=== PATIENT | male | born 1955 | race Caucasian/White ===

== ENCOUNTER 2021-09-05 12:02 | Inpatient (IN) ==
--- NOTE | 2021-09-05 12:14 | Emergency Department Note ---
Lower Extremity Injury HPI General Chief Complaint: Extremity Injury, Lower Stated Complaint: Fall, Rt hip fx Source: EMS Mode of arrival: EMS Limitations: no limitations History of Present Illness HPI Narrative: Narrative: Patient is a 66-year-old male with a right hip fracture that was diagnosed at the [facility] in [place]. Patient was initially seen at the hospital and transferred to [facility] emergency department to able to have surgery to the right hip. Patient indicates he has a history of Parkinson's and stood up from his toilet last night and fell. He indicates that around 3 AM in the living room he had a mechanical fall where he tripped and fell in his living room which caused the hip fracture. Patient reports over the last 6 to 9 months he has been unsteady due to his Parkinson's and falling more. Patient denies hitting his head or losing consciousness. He denies any other pain besides his right hip. Currently describes sharp and throbbing pain on the lateral side of his right hip and rates his pain 9 out of 10 on the 0-10 numerical pain scale. He did receive Dilaudid pain medication before transfer to [facility] emergency department. He indicates that the Dilaudid has been helpful with controlling his pain. Patient denies any numbness or tingling. Pain is aggravated with moving his right leg. Patient was initially seen at the [facility] in [facility] and transferred to [facility] where Dr. Curiel is on-call. Dr. Curiel has already been contacted by the [facility] earlier today. Related Data Home Medications Medication Instructions Recorded Confirmed amiodarone 200 mg tablet 200 mg PO QDAY 09/05/21 09/05/21 aspirin 81 mg capsule 81 mg PO QDAY 09/05/21 09/05/21 carbidopa 25 mg-levodopa 100 mg 1 tab PO BID 09/05/21 09/05/21 tablet citalopram 20 mg tablet 20 mg PO QDAY 09/05/21 09/05/21 cyanocobalamin (vitamin B-12) 1,000 mcg DAILY 09/05/21 09/05/21 1,000 mcg/mL injection syringe diazepam 10 mg tablet 10 mg PO DAILY PRN 09/05/21 09/05/21 digoxin 125 mcg (0.125 mg) tablet 125 mcg PO DAILY 09/05/21 09/05/21 divalproex 500 mg tablet,delayed 500 mg PO BID 09/05/21 09/05/21 release (Depakote) fluconazole 150 mg tablet 150 mg PO ONCE 09/05/21 09/05/21 fluticasone 250 mcg-salmeterol 50 1 inh INHALATION BID 09/05/21 09/05/21 mcg/dose blistr powdr for inhalation (Advair Diskus) furosemide 40 mg tablet 40 mg PO QDAY 09/05/21 09/05/21 gabapentin 300 mg capsule 300 mg PO QHS 09/05/21 09/05/21 levothyroxine 150 mcg capsule 150 mcg PO QDAY 09/05/21 09/05/21 midodrine 5 mg tablet 10 mg PO TID 09/05/21 09/05/21 morphine 60 mg tablet,extended 60 mg PO Q12H 09/05/21 09/05/21 release nitroglycerin 0.4 mg sublingual 0.4 mg SUBLINGUAL Q5M PRN 09/05/21 09/05/21 tablet olanzapine 10 mg tablet (Zyprexa) 10 mg PO QDAY 09/05/21 09/05/21 potassium chloride 10 mEq 10 meq PO BID 09/05/21 09/05/21 capsule,extended release pravastatin 40 mg tablet 40 mg PO QDAY 09/05/21 09/05/21 quetiapine 50 mg tablet 50 mg PO BID 09/05/21 09/05/21 tizanidine 4 mg capsule 4 mg PO TID 09/05/21 09/05/21 warfarin 5 mg tablet See Rx Instructions .ROUTE .COMPLEX 09/05/21 09/05/21 zolpidem 10 mg tablet (Ambien) 10 mg PO PRN PRN 09/05/21 09/05/21 Allergies Allergy/AdvReac Type Severity Reaction Status Date / Time aspirin Allergy Mild Abdominal Verified 09/05/21 16:54 Pain hydrocodone Allergy Mild Hives Verified 09/05/21 16:54 ibuprofen Allergy Mild Abdominal Verified 09/05/21 16:54 Pain NSAIDS (Non-Steroidal Allergy Mild Abdominal Verified 09/05/21 16:54 Anti-Inflamma Pain pentazocine Allergy Unknown Verified 09/05/21 12:09 Pyrazolones Allergy Unknown Verified 09/05/21 12:09 Salicylates Allergy Unknown Verified 09/05/21 12:09 Review of Systems ROS ROS Narrative: Narrative: All systems ED: reviewed and negative except as stated. PFSH Narrative Patient History Narrative: Narrative: Medical/Surgical/Family History All Active Problems (Updated 09/05/21 @ 13:40 by DONNA Lee) Fracture of hip (Acute) COPD (chronic obstructive pulmonary disease) (Acute) Medical History (Updated 09/05/21 @ 13:40 by DONNA Lee) COPD (chronic obstructive pulmonary disease) Parkinson's disease Social History Smoking Status: Current every day smoker Exam Narrative Narrative: Narrative: General Limitations: no limitations General appearance: Present alert and in no apparent distress Head Head: Present atraumatic, normocephalic and normal inspection Eye Eye: Present normal appearance, PERRL and EOMI; Absent scleral icterus, conjunctival injection or nystagmus ENT ENT: Present normal exam and normal oropharynx Neck Neck: Present normal inspection and full ROM; Absent tenderness or lymphadenopathy Chest Chest: Present symmetric chest wall rise Respiratory Respiratory: Present normal lung sounds bilaterally; Absent respiratory distress, rales/crackles, wheezes or accessory muscle use Cardiovascular Cardiovascular: Present regular rate and normal rhythm; Absent systolic murmur or diastolic murmur Adbominal Abdominal: Present soft; Absent distention or tenderness : Present other (Gordillo catheter is already in place upon arrival to the emergency department.) Extremities Extremities: Present normal inspection, normal capillary refill and other (There is tenderness with palpation on the lateral side of right hip. No internal or external rotation of the right leg. No shortening. No swelling, ecchymosis, or erythema.); Absent pedal edema, calf tenderness or cyanosis Back Back: Present normal inspection; Absent spinous process tenderness Neurological Neurological: Present alert and oriented X3 Psychiatric Psychiatric: Present normal affect and normal mood Skin Skin: Present warm (WNL), dry and normal color Course Vital Signs Vital signs: Vital Signs Temperature 98.3 F 09/05/21 12:03 Pulse Rate 79 09/05/21 12:03 Respiratory Rate 18 09/05/21 12:03 Blood Pressure 122/73 09/05/21 12:03 Pulse Oximetry (%) 99 09/05/21 12:03 Temperature 98.4 F 09/05/21 16:00 Pulse Rate 79 09/05/21 16:00 Respiratory Rate 18 09/05/21 16:00 Blood Pressure 135/79 09/05/21 16:00 Pulse Oximetry (%) 98 09/05/21 16:00 MDM MDM Narrative Medical decision making narrative: Narrative: 66-year-old male who had a mechanical ground-level fall today when he was at home that resulted in a right hip fracture. He was initially seen in [place] at the and then transferred to [facility] emergency department where Dr. Curiel had already been contacted. Dr. Curiel is on-call for orthopedics and I had consulted with him about this patient. He has agreed to see the patient and patient's [facility] Curiel to complete ORIF of right hip. I was able to talk with Dr. Atkins who is the hospitalist on at [facility] today. Dr. Atkins agrees to accept the patient for hospital admission to [facility]. Plan will be for Dr. Curiel to take patient to surgery tomorrow. Patient's EKG today shows atrial fibrillation with a rate of 61. No acute coronary syndrome findings on the EKG today. Patient's home medications do include warfarin. INR is currently pending at this time. 1 view chest x-ray does not show any definite infiltrates. Findings consistent with COPD. Patient received Dilaudid for pain management here in the emergency department and 4 mg of ondansetron. Patient currently resting comfortably and pain is controlled in room T5. Lab Data Lab results reviewed: Yes I reviewed the patient's lab results. Labs: Lab Results 09/05/21 Range/Units 12:43 PT 14.6 H (11.9-14.5) sec INR 1.1 (0.9-1.1) ED POC Tests ED POC Tests: KERRI - SARS Antigen Negative EKG Data EKG #1: EKG results narrative: NSR EKG shows normal: sinus rhythm Discharge Plan Patient/Caregiver Discharge Instructions Pt seen by 911 OPERATOR/PA only: No Clinical Impression: Fracture of hip Qualifiers: Encounter type: initial encounter Fracture type: closed Laterality: right Qualified Code(s): S72.001A - Fracture of unspecified part of neck of right femur, initial encounter for closed fracture Patient Disposition: Xfer As Inpt ([facility]) Discharge Date/Time: 09/05/21 15:59
[2021-09-05] MEDS ORDERED: ONDANSETRON 4 MG/2 ML VIAL IV ONE (12:34)
[2021-09-05] MEDS: HYDROmorphone 0.5 MG/0.5 ML SYRINGE IV PRN ×3 (12:42→18:59)
[2021-09-05 13:19] LABS: INR 1.1 (0.9-1.1); Prothrombin Time 14.6 sec (11.9-14.5)
[2021-09-05] MEDS ORDERED: ONDANSETRON 4 MG ODT TABLET SL PRN (13:52)
[2021-09-05] MEDS ORDERED: ONDANSETRON 4 MG/2 ML VIAL IV PRN (13:52)
[2021-09-05] MEDS ORDERED: hydrALAZINE 20 MG/ML VIAL IV PRN (13:52)
[2021-09-05] MEDS ORDERED: POTASSIUM CHLORIDE 40 MEQ in DEXTROSE 5% IN WATER 500 ML IV PRN (13:52)
[2021-09-05] MEDS ORDERED: POLYETHYLENE GLYCOL 3350 17 GM PACKET PO PRN (13:52)
[2021-09-05] MEDS ORDERED: ACETAMINOPHEN 325 MG TABLET PO PRN (13:52)
[2021-09-05] MEDS ORDERED: MAGNESIUM SULFATE 2 GM/50 ML BAG IV PRN (13:52)
[2021-09-05] MEDS ORDERED: BISACODYL 10 MG SUPP.RECT PR PRN (13:52)
[2021-09-05] MEDS ORDERED: METOPROLOL TARTRATE 5 MG/5 ML VIAL IV PRN (13:52)
--- NOTE | 2021-09-05 14:01 | Internal Med History&Physical ---
HPI History of Present Illness Patient information: Note initiated : 09/05/21 at 1:56 pm Service Date, if different from initiated Date: [] Patient: Oh Garcia 66 y/o M admitted on for Fall, Rt hip fx. Chief Complaint: [] History of present illness: Mr. Garcia is a 66 year old M with a complex past medical history of Parkinson's disease with ataxia, autonomic dysfunction, chronic pain, hypothyroidism, neuropathy, atrial fibrillation on anticoagulation, anxiety disorder who presents to the ER after he fell due to Parkinson related ataxia. Patient denies losing consciousness or seizure episode or thunderclap headache. He further denies chest pain, palpitation but started experiencing right-sided hip and back pain. He was evaluated at [facility]. Imaging consistent with right hip fracture. Dr. Butler admitting orthopedic was consulted and requested transfer to [facility] for operative intervention. Patient was brought in to [facility] ER by ambulance. On arrival stable hemodynamics. Creatinine 1.48, bicarb 31, sodium 134, potassium 3.6, white count 9.7, hemoglobin 14.9 Subsequently hospital service was consulted for admission. At the time of my evaluation patient is alert and oriented. He denies active distress but endorses to right-sided hip pain. He endorses to history as above. Lives with his son who was out working at the time of fall Other than that patient denies sick contacts, fever, chills, diarrhea, dysuria, productive sputum, cough. Review of systems 10 point review system was performed and is negative except for ones discussed above PFSH PFSH All Active Problems (Updated 09/05/21 @ 13:40 by DONNA Lee) Fracture of hip (Acute) COPD (chronic obstructive pulmonary disease) (Acute) Medical History (Updated 09/05/21 @ 13:40 by DONNA Lee) COPD (chronic obstructive pulmonary disease) Parkinson's disease MEDS/ALLERGIES Home Medications and Allergies Home Medications Medication Instructions Recorded Confirmed Type amiodarone 200 mg tablet 200 mg PO QDAY 09/05/21 09/05/21 History aspirin 81 mg capsule 81 mg PO QDAY 09/05/21 09/05/21 History carbidopa 25 mg-levodopa 100 mg 1 tab PO BID 09/05/21 09/05/21 History tablet citalopram 20 mg tablet 20 mg PO QDAY 09/05/21 09/05/21 History cyanocobalamin (vitamin B-12) See Rx Instructions .ROUTE .COMPLEX 09/05/21 09/05/21 History 1,000 mcg/mL injection syringe diazepam 10 mg tablet 10 mg PO DAILY PRN 09/05/21 09/05/21 History digoxin 125 mcg (0.125 mg) tablet 125 mcg PO DAILY 09/05/21 09/05/21 History divalproex 500 mg tablet,delayed 500 mg PO BID 09/05/21 09/05/21 History release (Depakote) fluconazole 150 mg tablet 150 mg PO ONCE 09/05/21 09/05/21 History fluticasone 250 mcg-salmeterol 50 1 inh INHALATION BID 09/05/21 09/05/21 History mcg/dose blistr powdr for inhalation (Advair Diskus) furosemide 40 mg tablet 40 mg PO QDAY 09/05/21 09/05/21 History gabapentin 300 mg capsule 300 mg PO QHS 09/05/21 09/05/21 History levothyroxine 150 mcg capsule 150 mcg PO QDAY 09/05/21 09/05/21 History midodrine 5 mg tablet 10 mg PO TID 09/05/21 09/05/21 History morphine 60 mg tablet,extended 60 mg PO Q12H 09/05/21 09/05/21 History release nitroglycerin 0.4 mg sublingual 0.4 mg SUBLINGUAL Q5M PRN 09/05/21 09/05/21 History tablet olanzapine 10 mg tablet (Zyprexa) 10 mg PO QDAY 09/05/21 09/05/21 History potassium chloride 10 mEq 10 meq PO BID 09/05/21 09/05/21 History capsule,extended release pravastatin 40 mg tablet 40 mg PO QDAY 09/05/21 09/05/21 History quetiapine 50 mg tablet 50 mg PO BID 09/05/21 09/05/21 History tizanidine 4 mg capsule 4 mg PO TID 09/05/21 09/05/21 History warfarin 5 mg tablet See Rx Instructions .ROUTE .COMPLEX 09/05/21 09/05/21 History zolpidem 10 mg tablet (Ambien) 10 mg PO PRN PRN 09/05/21 09/05/21 History Allergies Allergy/AdvReac Type Severity Reaction Status Date / Time aspirin Allergy Unknown Verified 09/05/21 12:09 hydrocodone Allergy Unknown Verified 09/05/21 12:09 ibuprofen Allergy Unknown Verified 09/05/21 12:09 NSAIDS (Non-Steroidal Allergy Unknown Verified 09/05/21 12:09 Anti-Inflamma pentazocine Allergy Unknown Verified 09/05/21 12:09 Pyrazolones Allergy Unknown Verified 09/05/21 12:09 Salicylates Allergy Unknown Verified 09/05/21 12:09 EXAM Constitutional Vitals: Temp Pulse Resp BP Pulse Ox 98.3 F 61 18 116/68 88 L 09/05/21 12:03 09/05/21 13:32 09/05/21 12:03 09/05/21 13:01 09/05/21 13:32 Head normocephalic, temporal wasting, cachectic with a BMI of 19 Oral cavity dry No ear or nose discharge Eye no subconjunctival pallor, movement symmetrical S1-S2 irregular, ESM grade 1 Nonlabored breathing Nondistended nontender abdomen Lower extremity , wasting noted, no cyanosis clubbing or joint swelling, left hip pain on passive movement Skin no suspicious lesion Psych anxious but no hallucination Neuro normal higher function, resting tremor DATA Data Completed and Pending Labs: Labs from last 24 hours 09/05/21 12:43 PT 14.6 H INR 1.1 A/P Assessment and plan (1) Fracture of hip: Assessment and plan: * Right hip fracture orthopedic consult, pain management, keep n.p.o. after midnight. * Preop risk evaluation-based on [employer] [place] Heart Association stratification patient would be high risk category in the setting of poor baseline functional status with underlying Parkinson's disease however there are no modifiable risk factors at this time. Patient can be kept n.p.o. after midnight and will recommend maintaining Intra-Op map around 60 to minimize chance of coronary and cerebral hypoperfusion * History of atrial fibrillation currently rate controlled. On amiodarone/digoxin. Anticoagulation Coumadin. Reverse Coumadin if indicated in preparation for surgery * History of ataxia/Parkinson's and recurrent fall. Physical therapy/gait and safety eval, maintain fall risk * Anxiety disorder continue citalopram * Anticoagulation on Coumadin-INR subtherapeutic. No indication for Coumadin reversal. Hold Coumadin until surgery. Restart post surgery once approved by orthopedics * Hypothyroidism continue thyroxine * History of Parkinson's disease continue levodopa carbidopa * Neuropathy continue gabapentin * Orthostatic hypotension secondary to autonomic dysfunction continue midodrine * Hyperlipidemia continue statin PLAN * Inpatient admission * N.p.o. after midnight * Pain management * Orthopedic consult * Pre-existing medical condition management Home medications * Maintain fall risk * PT OT nutrition support * Discharge planning per case management Status: Acute Qualifiers: Encounter type: initial encounter Fracture type: closed Laterality: right Qualified Code(s): S72.001A - Fracture of unspecified part of neck of right femur, initial encounter for closed fracture Time Spent With Patient Time: Total time spent is greater than 50% in coordination of care (as documented) at patient's floor/unit and/or counseling patient: Total time spent with greater than 50% in coordination of care (as documented) at patient's floor/unit and/or counseling patient:: Greater than 35 minutes
[2021-09-05] MEDS ORDERED: MIDODRINE 5 MG TABLET PO SCH (15:59)
[2021-09-05] MEDS ORDERED: DIAZEPAM 10 MG TABLET PO PRN (15:59)
--- NOTE | 2021-09-05 16:32 | XRay Report ---
CLINICAL INFORMATION: COPD COMPARISON: 07/30/2021 TECHNIQUE: PA and Lateral views FINDINGS: The heart size, mediastinum and pulmonary vessels are unremarkable. COPD changes noted. No infiltrates.. There are no effusions. The bones and soft tissues are within normal limits. IMPRESSION: COPD. No acute disease.. Interpreted and Authenticated by: Robin Piper 09/05/21
[2021-09-05] MEDS: 0.9 % SODIUM CHLORIDE 10 ML SYRINGE IV SCH ×2 (17:31→20:43)
[2021-09-05] MEDS: 0.9 % SODIUM CHLORIDE 1,000 ML IV SCH (17:31)
[2021-09-05] MEDS ORDERED: ZOLPIDEM 5 MG TABLET PO PRN (18:25)
[2021-09-05] MEDS: MORPHINE 60 MG PO SCH (19:07)
[2021-09-05] MEDS: DIVALPROEX 125 MG CAP.SPRINK PO SCH (20:54)
[2021-09-05] MEDS: GABAPENTIN 300 MG CAPSULE PO SCH (20:55)
[2021-09-05] MEDS: tiZANidine 4 MG TABLET PO SCH (20:55)
[2021-09-05] MEDS: DOCUSATE SODIUM 100 MG CAPSULE PO SCH (20:55)
[2021-09-05] MEDS: CARBIDOPA/LEVODOPA 25/100 TABLET PO SCH (20:55)
[2021-09-05] MEDS: QUEtiapine 25 MG TABLET PO SCH (20:55)
[2021-09-05] MEDS: FLUTICASONE/SALMETEROL 250/50 INHALER #14 INH SCH (20:55)
[2021-09-05] MEDS: SENNOSIDES/DOCUSATE SODIUM 1 TAB TABLET PO SCH (20:55)
[2021-09-05] MEDS: POTASSIUM CHLORIDE 10 MEQ TABLET PO SCH (20:59)
[2021-09-06] MEDS: MORPHINE 60 MG PO SCH (02:55)
[2021-09-06] MEDS: HYDROmorphone 0.5 MG/0.5 ML SYRINGE IV PRN (03:28)
[2021-09-06] MEDS: ACETAMINOPHEN 650 MG/65 ML BAG IV PRN (03:33)
[2021-09-06] MEDS: 0.9 % SODIUM CHLORIDE 10 ML SYRINGE IV SCH ×3 (04:36→20:28)
[2021-09-06] MEDS ORDERED: IPRATROPIUM/ALBUTEROL 3 ML AMPUL.NEB NEB PRN ×2 (07:00→08:54)
[2021-09-06] MEDS ORDERED: SCOPOLAMINE 1 PATCH PATCH TOPICAL PRN (07:00)
[2021-09-06 07:12] LABS: Basophils # (Auto) 0.02 K/mcL (0.00-0.30); Basophils % (Auto) 0.3 % (0.0-2.0); Eosinophils # (Auto) 0.16 K/mcL (0.00-0.70); Eosinophils % (Auto) 2.6 % (0.0-7.0); Hematocrit 34.7 % (40.1-51.0); Hemoglobin 11.5 g/dL (13.7-17.5); Lymphocytes # (Auto) 1.81 K/mcL (1.50-4.80); Lymphocytes % (Auto) 29.5 % (15.5-49.0); Mean Cell Volume 89.7 fL (80.0-100.0); Mean Corpuscular HGB Conc 33.1 g/dL (31.0-36.0); Mean Platelet Volume 11.5 fL (7.4-10.4); Monocytes # (Auto) 0.69 K/mcL (0.10-0.90); Monocytes % (Auto) 11.3 % (1.0-12.0); Neutrophils % (Auto) 56.3 % (38.0-78.0); Platelet Count 150 K/mcL (140-440); RBC 3.87 M/mcL (4.63-6.08); Red Cell Distribution Width 14.5 % (11.5-14.5); WBC 6.1 K/mcL (4.5-11.0)
[2021-09-06 07:22] LABS: INR 1.1 (0.9-1.1); Prothrombin Time 14.7 sec (11.9-14.5)
[2021-09-06] MEDS: CITALOPRAM 20 MG TABLET PO SCH (07:31)
[2021-09-06] MEDS: MIDODRINE 5 MG TABLET PO SCH ×3 (07:32→16:51)
[2021-09-06] MEDS: QUEtiapine 25 MG TABLET PO SCH ×2 (07:32→20:23)
--- NOTE | 2021-09-06 07:43 | Orthopedic History & Physical ---
HPI History of Present Illness Patient information: Note initiated : 09/06/21 at 7:32 am Service Date, if different from initiated Date: [] Patient: Oh Garcia 66 y/o M admitted on 09/05/21 for Fall, Rt hip fx. Chief Complaint: [] Chief complaint: Right hip pain History of present illness: Mr. Garcia is a 66 year old M with a past medical history of Parkinson's disease with ataxia, autonomic dysfunction, chronic pain, hypothyroidism, neuropathy, atrial fibrillation on anticoagulation, anxiety disorder who pres ented to [facility] after a fall related to his Parkinsons. He was discovered to have a fracture of the right hip at [facility] and transferred to [facility] for definitive care. Orthopedics was consulted and surgery is planned. The hospitalist has seen the patient and the patient has a complex medical history but has been okayed for surgery. Patient denies losing consciousness or seizure episode or thunderclap headache. He further denies chest pain, palpitation but started experiencing right-sided hip and back pain. He was evaluated at [facility]. Imaging consistent with right hip fracture. Dr. Butler admitting orthopedic was consulted and requested transfer to [facility] for operative intervention. Other than that patient denies sick contacts, fever, chills, diarrhea, dysuria, productive sputum, cough. Review of Systems Review of systems: A 10 point system was reviewed and is negative except as documented in the HPI PFSH PFSH All Active Problems (Updated 09/06/21 @ 07:40 by Toby Giron PA-C) Subtrochanteric fracture of hip (Acute) Fracture of hip (Acute) COPD (chronic obstructive pulmonary disease) (Acute) Medical History (Updated 09/06/21 @ 07:40 by Toby Giron PA-C) COPD (chronic obstructive pulmonary disease) Parkinson's disease MEDS/ALLERGIES Home Medications and Allergies Home Medications Medication Instructions Recorded Confirmed Type amiodarone 200 mg tablet 200 mg PO QDAY 09/05/21 09/05/21 History aspirin 81 mg capsule 81 mg PO QDAY 09/05/21 09/05/21 History carbidopa 25 mg-levodopa 100 mg 1 tab PO BID 09/05/21 09/05/21 History tablet citalopram 20 mg tablet 20 mg PO QDAY 09/05/21 09/05/21 History cyanocobalamin (vitamin B-12) 1,000 mcg DAILY 09/05/21 09/05/21 History 1,000 mcg/mL injection syringe diazepam 10 mg tablet 10 mg PO DAILY PRN 09/05/21 09/05/21 History digoxin 125 mcg (0.125 mg) tablet 125 mcg PO DAILY 09/05/21 09/05/21 History divalproex 500 mg tablet,delayed 500 mg PO BID 09/05/21 09/05/21 History release (Depakote) fluconazole 150 mg tablet 150 mg PO ONCE 09/05/21 09/05/21 History fluticasone 250 mcg-salmeterol 50 1 inh INHALATION BID 09/05/21 09/05/21 History mcg/dose blistr powdr for inhalation (Advair Diskus) furosemide 40 mg tablet 40 mg PO QDAY 09/05/21 09/05/21 History gabapentin 300 mg capsule 300 mg PO QHS 09/05/21 09/05/21 History levothyroxine 150 mcg capsule 150 mcg PO QDAY 09/05/21 09/05/21 History midodrine 5 mg tablet 10 mg PO TID 09/05/21 09/05/21 History morphine 60 mg tablet,extended 60 mg PO Q12H 09/05/21 09/05/21 History release nitroglycerin 0.4 mg sublingual 0.4 mg SUBLINGUAL Q5M PRN 09/05/21 09/05/21 History tablet olanzapine 10 mg tablet (Zyprexa) 10 mg PO QDAY 09/05/21 09/05/21 History potassium chloride 10 mEq 10 meq PO BID 09/05/21 09/05/21 History capsule,extended release pravastatin 40 mg tablet 40 mg PO QDAY 09/05/21 09/05/21 History quetiapine 50 mg tablet 50 mg PO BID 09/05/21 09/05/21 History tizanidine 4 mg capsule 4 mg PO TID 09/05/21 09/05/21 History warfarin 5 mg tablet See Rx Instructions .ROUTE .COMPLEX 09/05/21 09/05/21 History zolpidem 10 mg tablet (Ambien) 10 mg PO PRN PRN 09/05/21 09/05/21 History Allergies Allergy/AdvReac Type Severity Reaction Status Date / Time aspirin Allergy Mild Abdominal Verified 09/05/21 16:54 Pain hydrocodone Allergy Mild Hives Verified 09/05/21 16:54 ibuprofen Allergy Mild Abdominal Verified 09/05/21 16:54 Pain NSAIDS (Non-Steroidal Allergy Mild Abdominal Verified 09/05/21 16:54 Anti-Inflamma Pain pentazocine Allergy Unknown Verified 09/05/21 12:09 Pyrazolones Allergy Unknown Verified 09/05/21 12:09 Salicylates Allergy Unknown Verified 09/05/21 12:09 Physical Examination Narrative Narrative: Narrative: General: No acute distress, resting comfortably in bed. Head: atraumatic, normocephalic, no lacerations Neck; supple, no tenderness or lymphadenopathy Chest: Clear to auscultation bilaterally, distant lung sounds, no rales or rhonchi Cardiovascular: Distant heart sounds, regular rate and rhythm, no murmurs Abdomen: Soft, nondistended, no tenderness, there is a J-tube for feeding in his abdomen without any issues or signs of infection Musculoskeletal: There is pain and swelling in the right hip and the right leg is shortened and externally rotated. He has reduced sensation in bilateral lower legs secondary to his neuropathy but he is able to dorsiflex and home the foot on both feet however it is weak Skin: intact, no rash or lacerations Neuro: Alert and oriented x3, Psych: normal mood and affect Results Labs Result Diagrams: 09/06/21 05:22 09/06/21 05:22 Labs: Abnormal lab results 09/05/21 09/06/21 09/06/21 Range/Units 12:43 05:22 05:22 RBC 3.87 L (4.63-6.08) M/mcL Hgb 11.5 L (13.7-17.5) g/dL Hct 34.7 L (40.1-51.0) % MPV 11.5 H (7.4-10.4) fL PT 14.6 H 14.7 H (11.9-14.5) sec H & H 09/06/21 Range/Units 05:22 Hgb 11.5 L (13.7-17.5) g/dL Hct 34.7 L (40.1-51.0) % Coagulation 09/05/21 09/06/21 Range/Units 12:43 05:22 INR 1.1 1.1 (0.9-1.1) All other labs normal. Diagnostic results Hip x-ray: image reviewed (Imaging of the right hip and pelvis at [facility] reveal evidence of a significantly displaced and shortened subtrochanteric fracture of the right hip. There appears to be no pathologic process and no other acute abnormality was appreciated throughout the hip or pelvis.) and other A/P Assessment and plan (1) Subtrochanteric fracture of hip: Assessment and plan: Assessment: Displaced, closed, subtrochanteric fracture of the right hip Plan: Patient was admitted last night by the hospitalist for surgery and has been cleared however he does have a history of heart attack and stent and he has a complex medical history. We discussed the risk and benefits of surgery in detail with the patient today and the alternatives of surgery and due to the nature of the fracture the patient has elected to proceed with surgery which is appropriate. We will plan on a right hip open reduction internal fixation with a cephalomedullary nailing. Risk of surgery include heart attacks, strokes, , pneumonia, infection, blood clots, damage to local arteries and nerves, etc. No guarantees were given. Status: Acute Time Spent With Patient Time: Total time spent is greater than 50% in coordination of care (as documented) at patient's floor/unit and/or counseling patient:
[2021-09-06 07:47] LABS: ALT/SGPT < 5 U/L (<40); AST/SGOT 16 U/L (<40); Albumin 2.9 gm/dL (3.2-5.2); Albumin/Globulin Ratio 1.1 (1.0-2.3); Alkaline Phosphatase 103 U/L (39-117); Bilirubin,Direct 0.4 mg/dL (<0.3); Blood Urea Nitrogen 10 mg/dL (8-23); Calcium 8.4 mg/dL (8.6-10.4); Carbon Dioxide 28 mmol/L (22-30); Chloride 96 mmol/L (96-108); Globulin 2.7 gm/dL (2.2-3.7); Glomerular Filtration Rate 78; Glucose 79 mg/dL (70-105); Lactate Dehydrogenase 148 U/L (135-225); Phosphorous 3.1 mg/dL (2.5-4.5); Triglycerides 99 mg/dL (<150)
[2021-09-06] MEDS ORDERED: ceFAZolin 2 GM in DEXTROSE 5% IN WATER 50 ML IV SCH ×2 (08:00→10:00)
[2021-09-06] MEDS ORDERED: MAGNESIUM HYDROXIDE 30 ML ORAL.SUSP PO PRN ×2 (08:07→09:56)
[2021-09-06] MEDS ORDERED: FLEETS ADULT ENEMA PR PRN ×2 (08:07→09:56)
[2021-09-06] MEDS ORDERED: BENZOCAINE/MENTHOL 1 LOZENGE PO PRN ×2 (08:07→09:56)
[2021-09-06] MEDS ORDERED: LIDOCAINE HCL/PF 100 MG/5 ML SYRINGE IV ONE (08:09)
[2021-09-06] MEDS ORDERED: ONDANSETRON 4 MG/2 ML VIAL ONE (08:09)
[2021-09-06] MEDS ORDERED: MAGNESIUM SULFATE 2 GM/50 ML BAG IV ONE (08:09)
[2021-09-06] MEDS ORDERED: KETAMINE 50 MG/ML Syringe (ANEST) IV ONE (08:09)
[2021-09-06] MEDS ORDERED: DEXAMETHASONE 10 MG/ML VIAL ONE (08:09)
[2021-09-06] MEDS ORDERED: PHENYLephrine 1 MG/10 ML SYRINGE (ANEST) ONE (08:09)
[2021-09-06] MEDS ORDERED: PROPOFOL 200 MG/20 ML VIAL IV ONE (08:09)
[2021-09-06] MEDS ORDERED: ePHEDrine 50 MG/5 ML SYRINGE (ANEST) IV ONE (08:09)
[2021-09-06] MEDS ORDERED: NALOXONE HCL 0.4 MG/ML VIAL IV PRN ×2 (08:12→08:54)
[2021-09-06] MEDS ORDERED: KETOROLAC 15 MG/ML VIAL IV PRN (08:12)
[2021-09-06] MEDS ORDERED: HYDROCODONE/APAP 7.5/325MG TABLET PO PRN (08:12)
[2021-09-06] MEDS ORDERED: ACETAMINOPHEN 325 MG TABLET PO PRN (08:12)
[2021-09-06] MEDS ORDERED: ONDANSETRON 4 MG/2 ML VIAL IV PRN ×3 (08:12→10:01)
[2021-09-06] MEDS: AMIODARONE HCL 200 MG TABLET PO SCH (08:25)
[2021-09-06] MEDS: POTASSIUM CHLORIDE 10 MEQ TABLET PO SCH ×2 (08:25→16:52)
[2021-09-06] MEDS: FLUTICASONE/SALMETEROL 250/50 INHALER #14 INH SCH ×2 (08:25→20:28)
[2021-09-06] MEDS: LEVOTHYROXINE 150 MCG TABLET PO SCH (08:25)
[2021-09-06] MEDS: ASPIRIN 81 MG TAB.CHEW PO SCH (08:26)
[2021-09-06] MEDS: DOCUSATE SODIUM 100 MG CAPSULE PO SCH ×2 (08:26→20:26)
[2021-09-06] MEDS: MULTIVIT,THER IRON,CA,FA & MIN 1 TABLET PO SCH (08:27)
[2021-09-06] MEDS: DIVALPROEX 125 MG CAP.SPRINK PO SCH ×2 (08:27→20:25)
[2021-09-06] MEDS: ATORVASTATIN 10 MG TABLET PO SCH (08:27)
[2021-09-06] MEDS: FUROSEMIDE 40 MG TABLET PO SCH (08:27)
[2021-09-06] MEDS: CARBIDOPA/LEVODOPA 25/100 TABLET PO SCH ×2 (08:28→20:26)
[2021-09-06] MEDS: tiZANidine 4 MG TABLET PO SCH ×3 (08:28→20:27)
[2021-09-06] MEDS ORDERED: METHOCARBAMOL 1,000 MG/10 ML VIAL IV PRN ×2 (08:54→10:01)
[2021-09-06] MEDS ORDERED: LACTATED RINGERS 250 ML IV PRN (08:54)
[2021-09-06] MEDS ORDERED: AMIODARONE HCL 200 MG TABLET PO SCH (09:00)
[2021-09-06] MEDS ORDERED: OLANZAPINE 10 MG PO SCH (09:00)
[2021-09-06] MEDS ORDERED: LACTATED RINGERS 1,000 ML IV SCH (09:00)
[2021-09-06] MEDS: ENOXAPARIN 30 MG/0.3 ML SYRINGE SQ SCH ×2 (09:03→20:23)
[2021-09-06] MEDS ORDERED: BUPIVACAINE PF 0.5% 30 ML VIAL IJ ONE (09:12)
--- NOTE | 2021-09-06 09:13 | Discharge Plan ---
Discharge Plan Patient/Caregiver Discharge Instructions Activity: increase activity as tolerated Diet: Regular Diet Activity Restrictions/Additional Instructions: Weight bearing as tolerated Prescriptions: New oxycodone-acetaminophen 5-325 mg tablet 1 tab PO Q4H PRN (Reason: pain) Qty: 60 0RF No Action gabapentin 300 mg Capsule 300 mg PO QHS 0RF warfarin 5 mg Tablet See Rx Instructions .ROUTE .COMPLEX 0RF Rx Instructions: 1.5 mg tabls M, W, F, and 5 mg AOD cyanocobalamin (vitamin B-12) 1,000 mcg/mL Syringe 1,000 mcg DAILY 0RF Rx Instructions: IM levothyroxine 150 mcg Capsule 150 mcg PO QDAY 0RF pravastatin 40 mg Tablet 40 mg PO QDAY 0RF amiodarone 200 mg Tablet 200 mg PO QDAY 0RF olanzapine [Zyprexa] 10 mg Tablet 10 mg PO QDAY 0RF morphine 60 mg Tablet Extended Release 60 mg PO Q12H 0RF furosemide 40 mg Tablet 40 mg PO QDAY 0RF fluticasone propion-salmeterol [Advair Diskus] 250-50 mcg/dose Blister With Device 1 inh INHALATION BID 0RF potassium chloride 10 mEq Capsule, Extended Release 10 meq PO BID 0RF fluconazole 150 mg Tablet 150 mg PO ONCE 0RF Rx Instructions: as a single dose midodrine 5 mg Tablet 10 mg PO TID 0RF Rx Instructions: do not give last dose of day after 6PM or within 4 hrs of bedtime divalproex [Depakote] 500 mg Tablet,Delayed Release (Dr/Ec) 500 mg PO BID 0RF Rx Instructions: one tablet in the morning and two tablets at bedtime citalopram 20 mg Tablet 20 mg PO QDAY 0RF nitroglycerin 0.4 mg Tablet, Sublingual 0.4 mg SUBLINGUAL Q5M PRN (Reason: Insomnia) 0RF Rx Instructions: do not exceed 3 doses per episode digoxin 125 mcg (0.125 mg) Tablet 125 mcg PO DAILY 0RF diazepam 10 mg Tablet 10 mg PO DAILY PRN (Reason: Anxiety) 0RF zolpidem [Ambien] 10 mg Tablet 10 mg PO PRN PRN (Reason: Insomnia) 0RF carbidopa-levodopa 25-100 mg Tablet 1 tab PO BID 0RF tizanidine 4 mg Capsule 4 mg PO TID 0RF quetiapine 50 mg Tablet 50 mg PO BID 0RF aspirin 81 mg Capsule 81 mg PO QDAY 0RF Follow Up Plan Follow up with: Yovani Curiel MD [Physician] - John Weathers MD [Referring] - Patient Disposition: Home, Self-Care Discharge Orders: Discharge Order (Routine); Ordered 09/09/21 Ordered By: Yovani Curiel
[2021-09-06] MEDS: MEPERIDINE 25 MG/ML VIAL IV PRN ×2 (09:34→09:50)
[2021-09-06] MEDS: LACTATED RINGERS 1,000 ML IV SCH ×2 (09:36→09:52)
--- NOTE | 2021-09-06 09:41 | Operative Note ---
Operative Note Operative Note: Pre-operative diagnosis: Right peritrochanteric fracture Postoperative diagnosis: Same Procedure: Right hip IM nail Implants: Synthes TFN, size 11 x 235 mm 95 mm cephalad screw, 40 mm distal locking screw Findings: As above, fracture with displacement of GT and LT Complications: None Estimated Blood loss: 50 cc Assist: Mele Johnston whose assistance was critical to safety and efficacy of the procedure DOS: September 06, 2021 Clinical note: The patient continues to suffer from the above mentioned diagnos is. She had a fall yesterday and was unable to weight-bear on the right hip. X-rays were taken which were concerning for right hip fracture, although minimally displaced. Radiology suggested a CT scan which was performed and did confirm a subcapital hip fracture. There was valgus impacted with minimal displacement and no interruption of the medial calcar. Surgery in the form of percutaneous pinning was advised to stabilize the fracture. Arthroplasty was considered however given the stable nature of this fracture and that pinning is the less invasive of the 2 procedures this was chosen. She is aware that occasionally the pinning does fail and sometimes need to be revised to an arthroplasty. H&P: The patient was met outside the operating room and symptoms were reviewed and a physical exam performed. The patient demonstrated ongoing symptoms and signs as previously discussed. Risk versus benefits of the procedure were again discussed. Patient wished to proceed with the surgery aware and understanding of these risks. The operative site was marked. The patient was brought into the operating room and prepped and draped in the usual fashion supine on traction table. Traction was applied and the hip was imaged with fluoroscopy. This confirmed good reduction of the fracture both in AP and lateral views. We began by making an incision directly superior to the GT. A starting wire was introduced with the help of a starting awl directly on the tip of the GT using fluoroscopy to confirm trajectory. The canal was then opened with an entry reamer. A IM nail of size scribed above was then introduced. This was advanced with a mallet until the trajectory of the cephalad screw is in line with the center of the femoral head. A guidewire was introduced to the center of the femoral head within 25 mm combined on both AP and lateral views of the apex. An incision was made on the lateral femur, and the lateral femoral cortex was opened through the trocar with a start drill, then the femoral neck was drilled in the usual fashion. A Cephalad screw was then inserted through the trocar into the center of the femoral head. Again using the guide a distal locking screw was inserted in the usual fashion securing the distal portion of the nail. Final fluoroscopy views were performed confirming the hip remained well reduced in the nail and locking screws were in good position. The wounds were then irrigated. They were closed with a heavy Vicryl suture for the deep layers followed by Monocryl and yasmine for the skin. A bulky dressing was applied. Patient was brought to PACU in good condition. They can be weightbearing as tolerated on that leg should follow-up with myself or the PA in 2 weeks time at [facility] for wound check and staple removal.
[2021-09-06] MEDS: morphine 2 MG/ML VIAL IV PRN ×2 (09:50→09:59)
[2021-09-06] MEDS ORDERED: ONDANSETRON 4 MG ODT TABLET SL PRN (10:01)
[2021-09-06] MEDS: 0.9 % SODIUM CHLORIDE 1,000 ML IV SCH (10:52)
--- NOTE | 2021-09-06 11:09 | Internal Med Progress Note ---
SUBJECTIVE Subjective Patient information: Note initiated : 09/06/21 at 11:07 am Service Date, if different from initiated Date: [] Patient: Oh Garcia 66 y/o M admitted on 09/05/21 for Fall, Rt hip fx. Chief Complaint: [] Interval history: Mr. Garcia is a 66 year old M with a complex past medical history of Parkinson's disease with ataxia, autonomic dysfunction, chronic pain, hypothyroidism, neuropathy, atrial fibrillation on anticoagulation, anxiety disorder who presents to the ER after he fell due to Parkinson related ataxia. Patient denies losing consciousness or seizure episode or thunderclap headache. He further denies chest pain, palpitation but started experiencing right-sided hip and back pain. He was evaluated at [facility]. Imaging consistent with right hip fracture. Dr. Butler admitting orthopedic was consulted and requested transfer to [facility] for operative intervention. Patient was brought in to [facility] ER by ambulance. On arrival stable hemodynamics. Creatinine 1.48, bicarb 31, sodium 134, potassium 3.6, white count 9.7, hemoglobin 14.9 Subsequently hospital service was consulted for admission. At the time of my evaluation patient is alert and oriented. He denies active distress but end orses to right-sided hip pain. He endorses to history as above. Lives with his son who was out working at the time of fall Other than that patient denies sick contacts, fever, chills, diarrhea, dysuria, productive sputum, cough. 09/06-patient seen in postoperative phase. Doing well. Pain good control. On Jevity per tube. Restart home medications. No anxiety/concerns expressed with nursing staff. Stable hemodynamics. Constitutional Vitals: Vital Signs Temp Pulse Resp BP Pulse Ox 98.3 F 69 16 122/74 99 09/06/21 10:05 09/06/21 10:05 09/06/21 10:05 09/06/21 10:05 09/06/21 10:05 Period Temp Pulse Resp BP Sys/Roland Pulse Ox Last 24 Hr 97 F-99 F 37-79 16-18 81-135/51-79 88-99 Intake and Output 09/05/21 09/06/21 09/06/21 21:59 05:59 13:59 Intake Total 0 65 3838 Output Total 200 150 200 Balance -200 -85 3638 Weight 72.212 kg 72.212 kg Patient Weight 09/07/21 05:59 Weight 72.212 kg alert oriented Nonlabored breathing PEG tube site no erythema, nontender abdomen No anxiety Intake & Output: Intake & Output 09/05/21 09/06/21 09/06/21 21:59 05:59 13:59 Intake Total 0 65 3838 Output Total 200 150 200 Balance -200 -85 3638 Weight 72.212 kg 72.212 kg Intake: IV 65 938 Sodium Chloride 0.9% 1,000 ml @ 868 50 mls/hr IV .Q20H [facility] Rx#: [id number] Lactated Ringers 1,000 ml @ 75 20 mls/hr IV .[id number] [facility] Rx#: [id number] Ancef 2 gm In Dextrose 5% in 50 Water 50 ml @ 100 mls/hr IV PREOP [facility] Rx#:[id number] Oral 0 0 0 IV - Manual Only 1000 Other 1900 Output: Urine Catheter Amount 200 150 200 Other: Urine Appearance Clear Urine Color Uretheral (Gordillo) Dark Azucena OBJ DATA Labs CBC & Chem 7: 09/06/21 05:22 09/06/21 05:22 Labs: Abnormal Lab Results 09/06/21 09/06/21 09/06/21 05:22 05:22 05:22 RBC 3.87 L Hgb 11.5 L Hct 34.7 L MPV 11.5 H PT 14.7 H Calcium 8.4 L Direct Bilirubin 0.4 H Total Protein 5.6 L Albumin 2.9 L 09/05/21 12:43 RBC Hgb Hct MPV PT 14.6 H Calcium Direct Bilirubin Total Protein Albumin Meds: Medications Acetaminophen (Acetaminophen 325 Mg Tablet) 650 mg PO Q6HP PRN; Protocol PRN Reason: Per Pain Protocol/Fever > 101 Hydrocodone Bitart/Acetaminophen (Hydrocodone/Apap 7.5/325mg Tablet) 0 tab PO Q4HP PRN; Protocol PRN Reason: Per Pain Protocol Amiodarone HCl (Amiodarone Hcl 200 Mg Tablet) 200 mg PO [facility] Last Admin: 09/06/21 08:25 Dose: Not Given Documented by: Aspirin (Aspirin 81 Mg Tab.Chew) 81 mg PO DAILY [facility] Last Admin: 09/06/21 08:26 Dose: Not Given Documented by: Atorvastatin Calcium (Atorvastatin 10 Mg Tablet) 10 mg PO QDAY [facility] Last Admin: 09/06/21 08:27 Dose: Not Given Documented by: Bisacodyl (Bisacodyl 10 Mg Supp.Rect) [address] Q2-3DAYS PRN PRN Reason: Constipation Carbidopa/Levodopa (Carbidopa/Levodopa 25/100 Tablet) 1 tab PO BID [facility] Last Admin: 09/06/21 08:28 Dose: Not Given Documented by: Cefazolin Sodium (Cefazolin 1 Gm Vial) 2 gm IV Q8H [facility] Stop: 09/07/21 00:01 Chlorhexidine Gluconate (Chlorhexidine Gluconate 1 Ml Oral.Margaret) 15 ml SWABMOUTH BID [facility] Citalopram Hydrobromide (Citalopram 20 Mg Tablet) 20 mg PO QDAY [facility] Last Admin: 09/06/21 07:31 Dose: 20 mg Documented by: Diazepam (Diazepam 10 Mg Tablet) 10 mg PO DAILY PRN PRN Reason: Anxiety Digoxin (Digoxin 125 Mcg Tablet) 125 mcg PO DAILY@1400 [facility] Divalproex Sodium (Divalproex 125 Mg Cap.Sprink) 1,000 mg PO [facility] Last Admin: 09/05/21 20:54 Dose: 1,000 mg Documented by: Divalproex Sodium (Divalproex 125 Mg Cap.Sprink) 500 mg PO DAILY [facility] Last Admin: 09/06/21 08:27 Dose: Not Given Documented by: Docusate Sodium (Docusate Sodium 100 Mg Capsule) 100 mg PO BID [facility] Last Admin: 09/06/21 08:26 Dose: Not Given Documented by: Enoxaparin Sodium (Enoxaparin 30 Mg/0.3 Ml Syringe) 30 mg SQ BID [facility] Last Admin: 09/06/21 09:03 Dose: Not Given Documented by: Furosemide (Furosemide 40 Mg Tablet) 40 mg PO QDAY [facility] Last Admin: 09/06/21 08:27 Dose: Not Given Documented by: Gabapentin (Gabapentin 300 Mg Capsule) 300 mg PO QHS [facility] Last Admin: 09/05/21 20:55 Dose: 300 mg Documented by: Hydralazine HCl (Hydralazine 20 Mg/Ml Vial) 10 mg IV Q4-6HP PRN PRN Reason: Hypertension Potassium Chloride 40 meq/ (Dextrose) 520 mls @ 130 mls/hr IV UD PRN PRN Reason: K+ = or < 3.5 Acetaminophen (Ofirmev) 650 mg in 65 mls @ 130 mls/hr IV Q6HP PRN; Protocol PRN Reason: Per Pain Protocol/Fever > 101 Last Infusion: 09/06/21 04:04 Dose: Infused Documented by: Magnesium Sulfate (Magnesium Sulfate) 2 gm in 50 mls @ 50 mls/hr IV UD PRN PRN Reason: MG = or < 1.7 Sodium Chloride (Sodium Chloride 0.9%) 1,000 mls @ 50 mls/hr IV .Q20H [facility] Stop: 09/08/21 01:59 Last Admin: 09/06/21 10:52 Dose: 50 mls/hr Documented by: Cefazolin Sodium 2 gm/ (Dextrose) 50 mls @ 100 mls/hr IV PREOP [facility]; Protocol Stop: 09/06/21 17:00 Last Infusion: 09/06/21 08:44 Dose: Infused Documented by: Lactated Ringer's (Lactated Ringers) 1,000 mls @ 75 mls/hr IV .[id number] [facility] Last Admin: 09/06/21 09:52 Dose: 75 mls/hr Documented by: Iron Carb/Multivit/Travel Consultant/Folic Acid (Multivit,Ther Iron,Ca,Fa & Min 1 Tablet) 1 tab PO DAILY [facility] Last Admin: 09/06/21 08:27 Dose: Not Given Documented by: Ketorolac Tromethamine (Ketorolac 15 Mg/Ml Vial) 15 mg IV Q6HP PRN; Protocol PRN Reason: Per Pain Protocol Stop: 09/08/21 08:14 Levothyroxine Sodium (Levothyroxine 150 Mcg Tablet) 150 mcg PO QAMAC [facility] Last Admin: 09/06/21 08:25 Dose: Not Given Documented by: Magnesium Hydroxide (Magnesium Hydroxide 30 Ml Oral.Susp) 30 ml PO BIDP PRN PRN Reason: Constipation Melatonin (Melatonin 3 Mg Tablet) 3 mg PO HSP PRN PRN Reason: Insomnia Methocarbamol (Methocarbamol 1,000 Mg/10 Ml Vial) 750 mg IV Q6HP PRN PRN Reason: Muscle Spasm Metoprolol Tartrate (Metoprolol Tartrate 5 Mg/5 Ml Vial) 5 mg IV Q5M PRN PRN Reason: Heart Rate > 140 bpm Midodrine (Midodrine 5 Mg Tablet) 10 mg PO TID@0800,1200,1700 [facility] Last Admin: 09/06/21 07:32 Dose: 10 mg Documented by: Morphine Sulfate (Morphine 4 Mg/Ml Vial) 0 mg IV Q1HP PRN; Protocol PRN Reason: Per Pain Protocol Naloxone HCl (Naloxone Hcl 0.4 Mg/Ml Vial) 0.1 mg IV Q2MIN PRN PRN Reason: Opiate Reversal Non-Formulary Medication (Morphine) 60 mg PO Q12H [facility] Last Admin: 09/06/21 02:55 Dose: Not Given Documented by: Non-Formulary Medication (Olanzapine [Zyprexa]) 10 mg PO QDAY [facility] Last Admin: 09/06/21 11:01 Dose: Not Given Documented by: Ondansetron HCl (Ondansetron 4 Mg/2 Ml Vial) 4 mg IV Q4HP PRN; Protocol PRN Reason: Nausea And Vomiting Ondansetron HCl (Ondansetron 4 Mg Odt Tablet) 4 mg SL Q4HP PRN; Protocol PRN Reason: Nausea And Vomiting Polyethylene Glycol (Polyethylene Glycol 3350 17 Gm Packet) 17 gm PO DAILYP PRN PRN Reason: Constipation Potassium Chloride (Potassium Chloride 10 Meq Tablet) 10 meq PO BIDCC [facility] Last Admin: 09/06/21 08:25 Dose: Not Given Documented by: Quetiapine Fumarate (Quetiapine 25 Mg Tablet) 50 mg PO BID [facility] Last Admin: 09/06/21 07:32 Dose: 50 mg Documented by: Fluticasone/Salmeterol (Fluticasone/Salmeterol 250/50 Inhaler #14) 1 puff INH BID [facility] Last Admin: 09/06/21 08:25 Dose: Not Given Documented by: Senna/Docusate Sodium (Sennosides/Docusate Sodium 1 Tab Tablet) 1 tab PO HS [facility] Last Admin: 09/05/21 20:55 Dose: 1 tab Documented by: Sodium Biphosphate/Sodium Phosphate (Fleets Adult Enema) [address] Q3-4DAYS PRN PRN Reason: Constipation Sodium Chloride (0.9 % Sodium Chloride 10 Ml Syringe) 10 ml IV Q8 [facility] Last Admin: 09/06/21 04:36 Dose: Not Given Documented by: Throat Lozenges (Benzocaine/Menthol 1 Lozenge) 1 lozenge PO PRN PRN PRN Reason: Sore Throat Tizanidine HCl (Tizanidine 4 Mg Tablet) 4 mg PO TID [facility] Last Admin: 09/06/21 08:28 Dose: Not Given Documented by: Zolpidem Tartrate (Zolpidem 5 Mg Tablet) 10 mg PO HSP PRN PRN Reason: Insomnia A/P Assessment and plan (1) Fracture of hip: Assessment and plan: * Right hip fracture postop day 1. Managed per orthopedics. On DVT prophylaxis twice daily Lovenox per orthopedics * History of atrial fibrillation currently rate controlled. On amiodarone/digoxin. Coumadin on hold. * History of ataxia/Parkinson's and recurrent fall. Physical therapy/gait and safety eval, maintain fall risk * Anxiety disorder continue citalopram * Anticoagulation on Coumadin, restart Coumadin 24 hours. On twice daily Lovenox * Hypothyroidism continue thyroxine * History of Parkinson's disease continue levodopa carbidopa * Neuropathy continue gabapentin * Orthostatic hypotension secondary to autonomic dysfunction continue midodrine * Hyperlipidemia continue statin * Dysphagia status post PEG tube placement on PEG tube feeds per dietitian PLAN * Continue postop care per orthopedics * DVT prophylaxis per orthopedics on subcu Lovenox twice daily * PEG tube feeding per dietitian * Pre-existing medical condition management Home medications * Maintain fall risk * Physical therapy * Restart Coumadin 24 hours * Discharge planning per case management Status: Acute Qualifiers: Encounter type: initial encounter Fracture type: closed Laterality: right Qualified Code(s): S72.001A - Fracture of unspecified part of neck of right femur, initial encounter for closed fracture Time Spent With Patient Time: Total time spent is greater than 50% in coordination of care (as documented) at patient's floor/unit and/or counseling patient: QUALITY VTE Deep Vein Thrombosis/Pulmonary Embolism Present on Admission: No
--- NOTE | 2021-09-06 12:45 | XRay Report ---
CLINICAL INFORMATION: ORIF right subtrochanteric fracture COMPARISON: Preoperative plain films 09/05/2021. FINDINGS: Sacroiliac and hip joints are normal in width and alignment without arthritic change. The oblique subtrochanteric fracture, of the proximal right femoral diaphysis, as been reduced to anatomic alignment and is now transfixed by gamma nail. Mild overlying soft tissue swelling noted. IMPRESSION: ORIF oblique subtrochanteric fracture of the right hip-anatomic alignment. Interpreted and Authenticated by: Robin Piper 09/06/21
--- NOTE | 2021-09-06 12:55 | XRay Report ---
CLINICAL INFORMATION: ORIF oblique subtrochanteric fracture of the right hip COMPARISON: None. 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 It is transfixed by gamma nail. Total fluoroscopy time 1.1 minutes IMPRESSION: ORIF subtrochanteric facture of the right hip. Anatomic alignment. Total fluoroscopy time 1.1 minutes. Interpreted and Authenticated by: Robin Piper 09/06/21
[2021-09-06] MEDS: DIGOXIN 125 MCG TABLET PO SCH (14:33)
[2021-09-06] MEDS: ceFAZolin 1 GM VIAL IV SCH (15:33)
[2021-09-06] MEDS: HYDROCODONE/APAP 7.5/325MG TABLET PO PRN (15:43)
--- NOTE | 2021-09-06 17:23 | EKG ---
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
--- NOTE | 2021-09-06 17:53 | XRay Report ---
G-tube injection Clinical information. Gastrostomy placement. Evaluate for dislodgment. TECHNIQUE: Following blending machine feeder imaging, 50 cc of contrast Gastrografin infused through indwelling PEG catheter while films were obtained. FINDINGS: Gastrostomy enters the anterior wall of the gastric antrum is firmly secured by retention balloon. The injected contrast was retained in a normal-appearing stomach freely flows into a normal-appearing duodenum. There is no extravasation. IMPRESSION: Gastrostomy in satisfactory position within the gastric antrum. No evidence of leak or other abnormality Interpreted and Authenticated by: Robin Piper 09/06/21
[2021-09-06] MEDS: CHLORHEXIDINE GLUCONATE 1 ML ORAL.SOL SWABMOUTH SCH (20:21)
[2021-09-06] MEDS: morphine 15 MG TAB.SR.12H PO SCH (20:25)
[2021-09-06] MEDS: SENNOSIDES/DOCUSATE SODIUM 1 TAB TABLET PO SCH (20:25)
[2021-09-06] MEDS: GABAPENTIN 300 MG CAPSULE PO SCH (20:26)
[2021-09-07] MEDS: morphine 4 MG/ML VIAL IV PRN ×3 (00:29→20:28)
[2021-09-07] MEDS: ceFAZolin 1 GM VIAL IV SCH (00:30)
[2021-09-07] MEDS: 0.9 % SODIUM CHLORIDE 10 ML SYRINGE IV SCH ×3 (05:46→20:58)
[2021-09-07] MEDS: 0.9 % SODIUM CHLORIDE 1,000 ML IV SCH (06:10)
[2021-09-07 06:59] LABS: Basophils # (Auto) 0.01 K/mcL (0.00-0.30); Basophils % (Auto) 0.1 % (0.0-2.0); Eosinophils # (Auto) 0 K/mcL (0.00-0.70); Eosinophils % (Auto) 0 % (0.0-7.0); Hemoglobin 10.4 g/dL (13.7-17.5); Lymphocytes # (Auto) 0.95 K/mcL (1.50-4.80); Lymphocytes % (Auto) 13.7 % (15.5-49.0); Mean Cell Volume 88.8 fL (80.0-100.0); Mean Corpuscular HGB Conc 34.7 g/dL (31.0-36.0); Mean Platelet Volume 10.9 fL (7.4-10.4); Monocytes # (Auto) 0.75 K/mcL (0.10-0.90); Monocytes % (Auto) 10.9 % (1.0-12.0); Neutrophils % (Auto) 75.3 % (38.0-78.0); Platelet Count 156 K/mcL (140-440); RBC 3.38 M/mcL (4.63-6.08); Red Cell Distribution Width 14.6 % (11.5-14.5); WBC 6.9 K/mcL (4.5-11.0)
[2021-09-07 07:34] LABS: ALT/SGPT 8 U/L (<40); AST/SGOT 14 U/L (<40); Albumin 2.9 gm/dL (3.2-5.2); Albumin/Globulin Ratio 1.2 (1.0-2.3); Alkaline Phosphatase 92 U/L (39-117); Bilirubin,Direct 0.3 mg/dL (<0.3); Bilirubin,Total 0.6 mg/dL (0.1-1.0); Blood Urea Nitrogen 10 mg/dL (8-23); Calcium 8.1 mg/dL (8.6-10.4); Carbon Dioxide 28 mmol/L (22-30); Chloride 98 mmol/L (96-108); Globulin 2.4 gm/dL (2.2-3.7); Glomerular Filtration Rate 98; Glucose 124 mg/dL (70-105); Lactate Dehydrogenase 136 U/L (135-225); Phosphorous 2.8 mg/dL (2.5-4.5); Triglycerides 69 mg/dL (<150); Uric Acid 2.8 mg/dL (2.5-8.0)
[2021-09-07] MEDS: LEVOTHYROXINE 150 MCG TABLET PO SCH (07:52)
[2021-09-07 07:55] LABS: INR 1.2 (0.9-1.1); Prothrombin Time 15.3 sec (11.9-14.5)
[2021-09-07] MEDS: FLUTICASONE/SALMETEROL 250/50 INHALER #14 INH SCH ×2 (09:22→20:57)
[2021-09-07] MEDS: AMIODARONE HCL 200 MG TABLET PO SCH (09:27)
[2021-09-07] MEDS: POTASSIUM CHLORIDE 10 MEQ TABLET PO SCH ×2 (09:27→16:59)
[2021-09-07] MEDS: MIDODRINE 5 MG TABLET PO SCH ×4 (09:28→16:58)
[2021-09-07] MEDS: morphine 15 MG TAB.SR.12H PO SCH ×2 (09:28→20:58)
[2021-09-07] MEDS: ASPIRIN 81 MG TAB.CHEW PO SCH (09:59)
[2021-09-07] MEDS: QUEtiapine 25 MG TABLET PO SCH ×2 (10:00→20:56)
[2021-09-07] MEDS: FUROSEMIDE 40 MG TABLET PO SCH (10:00)
[2021-09-07] MEDS: ATORVASTATIN 10 MG TABLET PO SCH (10:00)
[2021-09-07] MEDS: OLANZapine 5 MG TABLET PO SCH (10:00)
[2021-09-07] MEDS: CITALOPRAM 20 MG TABLET PO SCH (10:00)
[2021-09-07] MEDS: tiZANidine 4 MG TABLET PO SCH ×3 (10:00→20:56)
[2021-09-07] MEDS: MULTIVIT,THER IRON,CA,FA & MIN 1 TABLET PO SCH (10:01)
[2021-09-07] MEDS: DIVALPROEX 125 MG CAP.SPRINK PO SCH ×2 (10:01→20:59)
[2021-09-07] MEDS: CARBIDOPA/LEVODOPA 25/100 TABLET PO SCH ×2 (10:01→20:57)
[2021-09-07] MEDS: DOCUSATE SODIUM 100 MG CAPSULE PO SCH ×2 (10:04→20:57)
[2021-09-07] MEDS: CHLORHEXIDINE GLUCONATE 1 ML ORAL.SOL SWABMOUTH SCH ×2 (10:08→20:58)
[2021-09-07] MEDS: ENOXAPARIN 30 MG/0.3 ML SYRINGE SQ SCH ×2 (10:11→20:57)
[2021-09-07] MEDS ORDERED: 0.9 % SODIUM CHLORIDE 500 ML IV ONE (13:14)
--- NOTE | 2021-09-07 13:30 | XRay Report ---
CLINICAL INFORMATION: Chest pain COMPARISON: 09/05/2021. TECHNIQUE: Portable FINDINGS: The heart size, mediastinum and pulmonary vessels are unremarkable. COPD changes noted. Small infiltrate seen in the left base. There are no effusions. The bones and soft tissues are within normal limits. IMPRESSION: COPD with small left basilar infiltrate. Interpreted and Authenticated by: Robin Piper 09/07/21
[2021-09-07 13:40] LABS: POC Blood Urea Nitrogen 12 mg/dL (6-20); POC CO2 27 mmol/L (22-30); POC Calcium, Ionized 1.11 mmEq/L (1.16-1.32); POC Chloride 97 mEq/L (96-108); POC Creatinine 0.8 mg/dL (0.6-1.2); POC Glucose, Random 105 mg/dL (70-105); POC Hematocrit 32 % (41-55); POC Potassium 3.9 mEql/L (3.3-5.1); POC Sodium 137 mEq/L (133-145)
--- NOTE | 2021-09-07 13:50 | Internal Med Progress Note ---
SUBJECTIVE Subjective Patient information: Note initiated : 09/07/21 at 1:44 pm Service Date, if different from initiated Date: [] Patient: Oh Garcia a 66 y/o M admitted on 09/05/21 for Fall, Rt hip fx. Chief Complaint: [] Interval history: Mr. Garcia is a 66 year old M with a complex past medical history of Parkinson's disease with ataxia, autonomic dysfunction, chronic pain, hypothyroidism, neuropathy, atrial fibrillation on anticoagulation, anxiety disorder who presents to the ER after he fell due to Parkinson related ataxia. Patient denies losing consciousness or seizure episode or thunderclap headache. He further denies chest pain, palpitation but started experiencing right-sided hip and back pain. He was evaluated at [facility]. Imaging consistent with right hip fracture. Dr. Butler admitting orthopedic was consulted and requested transfer to [facility] for operative intervention. Patient was brought in to [facility] ER by ambulance. On arrival stable hemodynamics. Creatinine 1.48, bicarb 31, sodium 134, potassium 3.6, white count 9.7, hemoglobin 14.9 Subsequently hospital service was consulted for admission. At the time of my evaluation patient is alert and oriented. He denies active distress but endo rses to right-sided hip pain. He endorses to history as above. Lives with his son who was out working at the time of fall Other than that patient denies sick contacts, fever, chills, diarrhea, dysuria, productive sputum, cough. 09/06-patient seen in postoperative phase. Doing well. Pain good control. On Jevity per tube. Restart home medications. No anxiety/concerns expressed with nursing staff. Stable hemodynamics. 09/07-patient seen in room postop day 1 around 11 AM doing well. Sitting on chair. Eating breakfast. Denies major concerns but feel little fatigued. Responded to rapid response around 1:15 PM. Patient was found to bradycardic in 50s, hypotensive around mid 50s systolic and sats low 70s. Patient was found gurgling. Started on nonrebreather mask/aggressive suctioning/POC stat labs. Crystalloid challenge with resultant improvement blood pressures to 90 systolic. Patient transferred to ICU. Oh said while he was sitting he regurgitated his gastric contents and was unable to spit it out and choked on it. Tube feeds discontinued and PEG tube decompressed. Start chest imaging bibasilar infiltrates suspicious for aspiration. Continue aspiration precaution, DC tube feeds. Keep n.p.o. Close hemodynamic monitoring. Hemoglobin stable Constitutional Vitals: Vital Signs Temp Pulse Resp BP Pulse Ox 97.7 F 57 L 20 92/53 95 09/07/21 08:00 09/07/21 08:00 09/07/21 08:00 09/07/21 08:00 09/07/21 08:00 Period Temp Pulse Resp BP Sys/Roland Pulse Ox Last 24 Hr 97.3 F-98.3 F 52-60 14-20 92-129/53-70 95-98 Intake and Output 09/06/21 09/07/21 09/07/21 21:59 05:59 13:59 Intake Total 457 690 0090 Output Total 725 60 125 Balance -778 716 5619 Weight 72.212 kg Anxious lethargic Bradycardic Systolics improved from 50s to 90s. Gordillo is draining clear urine Operative site right hip no swelling or bruising Intake & Output: Intake & Output 09/06/21 09/07/21 09/07/21 21:59 05:59 13:59 Intake Total 610 843 2717 Output Total 725 60 125 Balance -847 209 0616 Weight 72.212 kg Intake: IV 965 Sodium Chloride 0.9% 1,000 ml @ 965 50 mls/hr IV .Q20H [facility] Rx#: [id number] Oral 100 Tube Feeding 20 750 320 GI Tube Flush 100 100 Output: Gastric Drainage 60 Mid Upper Abdomen 60 Urine Catheter Amount 725 Void Amount 125 Other: Urine Appearance Clear Clear Clear Urine Color Light Azucena Dark Azucena Dark Azucena Urine Odor Normal Normal Normal OBJ DATA Labs CBC & Chem 7: 09/07/21 05:25 09/07/21 05:24 Labs: Abnormal Lab Results 09/07/21 09/07/21 09/07/21 13:25 05:25 05:25 RBC 3.38 L Hgb 10.4 L Hct 30.0 L POC Hct 32 L RDW 14.6 H MPV 10.9 H Lymph % (Auto) 13.7 L Lymph # (Auto) 0.95 L PT 15.3 H INR 1.2 H Glucose Calcium POC WB Ioniz Calcium 1.11 L Direct Bilirubin Total Protein Albumin Prealbumin 1109/06/21 09/06/21 05:24 11:45 05:22 RBC Hgb Hct POC Hct RDW MPV Lymph % (Auto) Lymph # (Auto) PT INR Glucose 124 H Calcium 8.1 L 8.4 L POC WB Ioniz Calcium Direct Bilirubin 0.3 H 0.4 H Total Protein 5.3 L 5.6 L Albumin 2.9 L 2.9 L Prealbumin 9.9 L 09/06/21 09/06/21 09/05/21 05:22 05:22 12:43 RBC 3.87 L Hgb 11.5 L Hct 34.7 L POC Hct RDW MPV 11.5 H Lymph % (Auto) Lymph # (Auto) PT 14.7 H 14.6 H INR Glucose Calcium POC WB Ioniz Calcium Direct Bilirubin Total Protein Albumin Prealbumin Meds: Medications Acetaminophen (Acetaminophen 325 Mg Tablet) 650 mg PO Q6HP PRN; Protocol PRN Reason: Per Pain Protocol/Fever > 101 Hydrocodone Bitart/Acetaminophen (Hydrocodone/Apap 7.5/325mg Tablet) 0 tab PO Q4HP PRN; Protocol PRN Reason: Per Pain Protocol Last Admin: 09/06/21 15:43 Dose: 1 tab Documented by: Amiodarone HCl (Amiodarone Hcl 200 Mg Tablet) [address] [facility] Last Admin: 09/07/21 09:27 Dose: 200 mg Documented by: Aspirin (Aspirin 81 Mg Tab.Chew) 81 mg PO DAILY [facility] Last Admin: 09/07/21 09:59 Dose: Not Given Documented by: Atorvastatin Calcium (Atorvastatin 10 Mg Tablet) 10 mg PO QDAY [facility] Last Admin: 09/07/21 10:00 Dose: 10 mg Documented by: Bisacodyl (Bisacodyl 10 Mg Supp.Rect) 10 mg IN Q2-3DAYS PRN PRN Reason: Constipation Carbidopa/Levodopa (Carbidopa/Levodopa 25/100 Tablet) 1 tab PO BID [facility] Last Admin: 09/07/21 10:01 Dose: 1 tab Documented by: Chlorhexidine Gluconate (Chlorhexidine Gluconate 1 Ml Oral.Margaret) 15 ml SWABMOUTH BID [facility] Last Admin: 09/07/21 10:08 Dose: 15 ml Documented by: Citalopram Hydrobromide (Citalopram 20 Mg Tablet) 20 mg PO QDAY [facility] Last Admin: 09/07/21 10:00 Dose: 20 mg Documented by: Diazepam (Diazepam 10 Mg Tablet) 10 mg PO DAILYP PRN PRN Reason: Anxiety Digoxin (Digoxin 125 Mcg Tablet) 125 mcg PO DAILY@1400 [facility] Last Admin: 09/06/21 14:33 Dose: Not Given Documented by: Divalproex Sodium (Divalproex 125 Mg Cap.Sprink) 1,000 mg PO HS [facility] Last Admin: 09/06/21 20:25 Dose: 1,000 mg Documented by: Divalproex Sodium (Divalproex 125 Mg Cap.Sprink) 500 mg PO DAILY [facility] Last Admin: 09/07/21 10:01 Dose: 500 mg Documented by: Docusate Sodium (Docusate Sodium 100 Mg Capsule) 100 mg PO BID [facility] Last Admin: 09/07/21 10:04 Dose: Not Given Documented by: Enoxaparin Sodium (Enoxaparin 30 Mg/0.3 Ml Syringe) 30 mg SQ BID [facility] Last Admin: 09/07/21 10:11 Dose: 30 mg Documented by: Furosemide (Furosemide 40 Mg Tablet) 40 mg PO QDAY [facility] Last Admin: 09/07/21 10:00 Dose: 40 mg Documented by: Gabapentin (Gabapentin 300 Mg Capsule) 300 mg PO QHS [facility] Last Admin: 09/06/21 20:26 Dose: 300 mg Documented by: Hydralazine HCl (Hydralazine 20 Mg/Ml Vial) 10 mg IV Q4-6HP PRN PRN Reason: Hypertension Potassium Chloride 40 meq/ (Dextrose) 520 mls @ 130 mls/hr IV UD PRN PRN Reason: K+ = or < 3.5 Acetaminophen (Ofirmev) 650 mg in 65 mls @ 130 mls/hr IV Q6HP PRN; Protocol PRN Reason: Per Pain Protocol/Fever > 101 Last Infusion: 09/06/21 04:04 Dose: Infused Documented by: Magnesium Sulfate (Magnesium Sulfate) 2 gm in 50 mls @ 50 mls/hr IV UD PRN PRN Reason: MG = or < 1.7 Sodium Chloride (Sodium Chloride 0.9%) 1,000 mls @ 50 mls/hr IV .Q20H [facility] Stop: 09/08/21 01:59 Last Admin: 09/07/21 06:10 Dose: 50 mls/hr Documented by: Lactated Ringer's (Lactated Ringers) 1,000 mls @ 75 mls/hr IV .[id number] [facility] Last Infusion: 09/06/21 10:30 Dose: Infused Documented by: Iron Carb/Multivit/Pacific/Folic Acid (Multivit,Ther Iron,Ca,Fa & Min 1 Tablet) 1 tab PO DAILY [facility] Last Admin: 09/07/21 10:01 Dose: 1 tab Documented by: Ketorolac Tromethamine (Ketorolac 15 Mg/Ml Vial) 15 mg IV Q6HP PRN; Protocol PRN Reason: Per Pain Protocol Stop: 09/08/21 08:14 Last Admin: 09/07/21 07:53 Dose: 15 mg Documented by: Levothyroxine Sodium (Levothyroxine 150 Mcg Tablet) 150 mcg PO QAMAC [facility] Last Admin: 09/07/21 07:52 Dose: 150 mcg Documented by: Magnesium Hydroxide (Magnesium Hydroxide 30 Ml Oral.Susp) 30 ml PO BIDP PRN PRN Reason: Constipation Melatonin (Melatonin 3 Mg Tablet) 3 mg PO HSP PRN PRN Reason: Insomnia Methocarbamol (Methocarbamol 1,000 Mg/10 Ml Vial) 750 mg IV Q6HP PRN PRN Reason: Muscle Spasm Metoprolol Tartrate (Metoprolol Tartrate 5 Mg/5 Ml Vial) 5 mg IV Q5M PRN PRN Reason: Heart Rate > 140 bpm Midodrine (Midodrine 5 Mg Tablet) 10 mg PO TID@0800,1200,1700 [facility] Last Admin: 09/07/21 09:28 Dose: 10 mg Documented by: Morphine Sulfate (Morphine 4 Mg/Ml Vial) 0 mg IV Q1HP PRN; Protocol PRN Reason: Per Pain Protocol Last Admin: 09/07/21 04:03 Dose: 4 mg Documented by: Morphine Sulfate (Morphine 15 Mg Tab.Sr.12h) 60 mg PO BID [facility] Last Admin: 09/07/21 09:28 Dose: 60 mg Documented by: Naloxone HCl (Naloxone Hcl 0.4 Mg/Ml Vial) 0.1 mg IV Q2MIN PRN PRN Reason: Opiate Reversal Olanzapine (Olanzapine 5 Mg Tablet) 10 mg PO DAILY [facility] Last Admin: 09/07/21 10:00 Dose: 10 mg Documented by: Ondansetron HCl (Ondansetron 4 Mg/2 Ml Vial) 4 mg IV Q4HP PRN; Protocol PRN Reason: Nausea And Vomiting Ondansetron HCl (Ondansetron 4 Mg Odt Tablet) 4 mg SL Q4HP PRN; Protocol PRN Reason: Nausea And Vomiting Polyethylene Glycol (Polyethylene Glycol 3350 17 Gm Packet) 17 gm PO DAILYP PRN PRN Reason: Constipation Potassium Chloride (Potassium Chloride 10 Meq Tablet) 10 meq PO BIDCC [facility] Last Admin: 09/07/21 09:27 Dose: 10 meq Documented by: Quetiapine Fumarate (Quetiapine 25 Mg Tablet) 50 mg PO BID [facility] Last Admin: 09/07/21 10:00 Dose: 50 mg Documented by: Fluticasone/Salmeterol (Fluticasone/Salmeterol 250/50 Inhaler #14) 1 puff INH BID [facility] Last Admin: 09/07/21 09:22 Dose: Not Given Documented by: Senna/Docusate Sodium (Sennosides/Docusate Sodium 1 Tab Tablet) 1 tab PO HS [facility] Last Admin: 09/06/21 20:25 Dose: 1 tab Documented by: Sodium Biphosphate/Sodium Phosphate (Fleets Adult Enema) 1 dose IN Q3-4DAYS PRN PRN Reason: Constipation Sodium Chloride (0.9 % Sodium Chloride 10 Ml Syringe) 10 ml IV Q8 [facility] Last Admin: 09/07/21 05:46 Dose: Not Given Documented by: Throat Lozenges (Benzocaine/Menthol 1 Lozenge) 1 lozenge PO PRN PRN PRN Reason: Sore Throat Tizanidine HCl (Tizanidine 4 Mg Tablet) 4 mg PO TID [facility] Last Admin: 09/07/21 10:00 Dose: 4 mg Documented by: Zolpidem Tartrate (Zolpidem 5 Mg Tablet) 10 mg PO HSP PRN PRN Reason: Insomnia A/P Assessment and plan (1) Fracture of hip: Assessment and plan: * Right hip fracture postop day 2. Managed per orthopedics. * Acute hypoxic respiratory failure secondary to aspiration pneumonia. Continue supplemental oxygen * Aspiration pneumonia-discontinue tube feeds, decompress PEG tube, elevate head end of bed. * Atrial fibrillation rate controlled. On amiodarone/digoxin. On Coumadin * History of ataxia/Parkinson's and recurrent fall. Physical therapy/gait and safety eval, maintain fall risk * Anxiety disorder continue citalopram * Anticoagulation on Coumadin, on Coumadin * Hypothyroidism continue thyroxine * History of Parkinson's disease continue levodopa carbidopa * Neuropathy continue gabapentin * Orthostatic hypotension secondary to autonomic dysfunction continue midodrine * Hyperlipidemia continue statin * Dysphagia status post PEG tube placement on PEG tube feeds per dietitian PLAN * Hold tube feeds * Transfer to ICU * Elevate HOB/aspiration precautions * Wean oxygen as tolerated * Postop care per orthopedics * Pre-existing medical condition management Home medications * Physical therapy * Coumadin management * Discharge planning per case management Status: Acute Qualifiers: Encounter type: initial encounter Fracture type: closed Laterality: right Qualified Code(s): S72.001A - Fracture of unspecified part of neck of right femur, initial encounter for closed fracture Time Spent With Patient Time: Critical time spent over 35 minutes on management of rapid response/hypoxic respiratory failure Total time spent with greater than 50% in coordination of care (as documented) at patient's floor/unit and/or counseling patient:: Greater than 35 minutes QUALITY VTE Deep Vein Thrombosis/Pulmonary Embolism Present on Admission: No
[2021-09-07] MEDS: DIGOXIN 125 MCG TABLET PO SCH (14:33)
[2021-09-07] MEDS: LACTATED RINGERS 1,000 ML IV SCH (15:14)
--- NOTE | 2021-09-07 16:32 | Orthopedic Progress Note ---
SUBJECTIVE Subjective Patient information: Note initiated : 09/07/21 at 4:27 pm Service Date, if different from initiated Date: [] Patient: Oh Garcia 66 y/o M admitted on 09/05/21 for Fall, Rt hip fx. Chief Complaint: Postop day 1 right hip IM nail for peritrochanteric fracture. Apparently the patient is with help of physical therapy. He is in the ICU due to aspiration which is not uncommon him as he has previous throat cancer. However he was saturating well with supplemental oxygen alert and oriented in bed. Constitutional Vitals: Vital Signs Temp Pulse Resp BP Pulse Ox 97.6 F 50 L 20 76/48 91 09/07/21 12:15 09/07/21 12:15 09/07/21 12:15 09/07/21 12:15 09/07/21 15:17 Period Temp Pulse Resp BP Sys/Roland Pulse Ox Last 24 Hr 97.3 F-98.3 F 50-60 14-20 76-129/48-70 87-98 Intake and Output 09/07/21 09/07/21 09/07/21 05:59 13:59 21:59 Intake Total 850 1385 500 Output Total 60 125 5 Balance 790 1260 495 Intake & Output: Intake & Output 09/07/21 09/07/21 09/07/21 05:59 13:59 21:59 Intake Total 850 1385 500 Output Total 60 125 5 Balance 790 1260 495 Intake: IV 965 500 Sodium Chloride 0.9% 1,000 ml @ 965 50 mls/hr IV .Q20H [facility] Rx#: [id number] Sodium Chloride 0.9% 500 ml @ 500 Wide Open IV .Q0M [facility] Rx#: [id number] Oral 100 Tube Feeding 750 320 GI Tube Flush 100 Output: Gastric Drainage 60 5 Mid Upper Abdomen 60 5 Void Amount 125 Other: Urine Appearance Clear Clear Urine Color Dark Azucena Dark Azucena Urine Odor Normal Normal Additional findings Additional findings: Patient is alert and oriented in bed. His pain is controlled. He is saturating well on rebreather mask. The wound was clean dry intact. He is neurovascularly intact in his foot. OBJ DATA Labs CBC & Chem 7: 09/07/21 05:25 09/07/21 05:24 Labs: Abnormal Lab Results 09/07/21 09/07/21 09/07/21 13:25 05:25 05:25 RBC 3.38 L Hgb 10.4 L Hct 30.0 L POC Hct 32 L RDW 14.6 H MPV 10.9 H Lymph % (Auto) 13.7 L Lymph # (Auto) 0.95 L PT 15.3 H INR 1.2 H Glucose Calcium POC WB Ioniz Calcium 1.11 L Direct Bilirubin Total Protein Albumin Prealbumin 09/07/21 09/06/21 09/06/21 05:24 11:45 05:22 RBC Hgb Hct POC Hct RDW MPV Lymph % (Auto) Lymph # (Auto) PT INR Glucose 124 H Calcium 8.1 L 8.4 L POC WB Ioniz Calcium Direct Bilirubin 0.3 H 0.4 H Total Protein 5.3 L 5.6 L Albumin 2.9 L 2.9 L Prealbumin 9.9 L 09/06/21 09/06/21 09/05/21 05:22 05:22 12:43 RBC 3.87 L Hgb 11.5 L Hct 34.7 L POC Hct RDW MPV 11.5 H Lymph % (Auto) Lymph # (Auto) PT 14.7 H 14.6 H INR Glucose Calcium POC WB Ioniz Calcium Direct Bilirubin Total Protein Albumin Prealbumin Meds: Medications Acetaminophen (Acetaminophen 325 Mg Tablet) 650 mg PO Q6HP PRN; Protocol PRN Reason: Per Pain Protocol/Fever > 101 Hydrocodone Bitart/Acetaminophen (Hydrocodone/Apap 7.5/325mg Tablet) 0 tab PO Q4HP PRN; Protocol PRN Reason: Per Pain Protocol Last Admin: 09/06/21 15:43 Dose: 1 tab Documented by: Amiodarone HCl (Amiodarone Hcl 200 Mg Tablet) 200 mg PO [facility] Last Admin: 09/07/21 09:27 Dose: 200 mg Documented by: Aspirin (Aspirin 81 Mg Tab.Chew) 81 mg PO DAILY [facility] Last Admin: 09/07/21 09:59 Dose: Not Given Documented by: Atorvastatin Calcium (Atorvastatin 10 Mg Tablet) 10 mg PO QDAY [facility] Last Admin: 09/07/21 10:00 Dose: 10 mg Documented by: Bisacodyl (Bisacodyl 10 Mg Supp.Rect) 10 mg [place] Q2-3DAYS PRN PRN Reason: Constipation Carbidopa/Levodopa (Carbidopa/Levodopa 25/100 Tablet) 1 tab PO BID [facility] Last Admin: 09/07/21 10:01 Dose: 1 tab Documented by: Chlorhexidine Gluconate (Chlorhexidine Gluconate 1 Ml Oral.Margaret) 15 ml SWABMOUTH BID [facility] Last Admin: 09/07/21 10:08 Dose: 15 ml Documented by: Citalopram Hydrobromide (Citalopram 20 Mg Tablet) 20 mg PO QDAY [facility] Last Admin: 09/07/21 10:00 Dose: 20 mg Documented by: Diazepam (Diazepam 10 Mg Tablet) 10 mg PO DAILYP PRN PRN Reason: Anxiety Digoxin (Digoxin 125 Mcg Tablet) 125 mcg PO DAILY@1400 [facility] Last Admin: 09/07/21 14:33 Dose: Not Given Documented by: Divalproex Sodium (Divalproex 125 Mg Cap.Sprink) 1,000 mg PO HS [facility] Last Admin: 09/06/21 20:25 Dose: 1,000 mg Documented by: Divalproex Sodium (Divalproex 125 Mg Cap.Sprink) 500 mg PO DAILY [facility] Last Admin: 09/07/21 10:01 Dose: 500 mg Documented by: Docusate Sodium (Docusate Sodium 100 Mg Capsule) 100 mg PO BID [facility] Last Admin: 09/07/21 10:04 Dose: Not Given Documented by: Enoxaparin Sodium (Enoxaparin 30 Mg/0.3 Ml Syringe) 30 mg SQ BID [facility] Last Admin: 09/07/21 10:11 Dose: 30 mg Documented by: Furosemide (Furosemide 40 Mg Tablet) 40 mg PO QDAY [facility] Last Admin: 09/07/21 10:00 Dose: 40 mg Documented by: Gabapentin (Gabapentin 300 Mg Capsule) 300 mg PO QHS [facility] Last Admin: 09/06/21 20:26 Dose: 300 mg Documented by: Hydralazine HCl (Hydralazine 20 Mg/Ml Vial) 10 mg IV Q4-6HP PRN PRN Reason: Hypertension Potassium Chloride 40 meq/ (Dextrose) 520 mls @ 130 mls/hr IV UD PRN PRN Reason: K+ = or < 3.5 Acetaminophen (Ofirmev) 650 mg in 65 mls @ 130 mls/hr IV Q6HP PRN; Protocol PRN Reason: Per Pain Protocol/Fever > 101 Last Infusion: 09/06/21 04:04 Dose: Infused Documented by: Magnesium Sulfate (Magnesium Sulfate) 2 gm in 50 mls @ 50 mls/hr IV UD PRN PRN Reason: MG = or < 1.7 Sodium Chloride (Sodium Chloride 0.9%) 1,000 mls @ 50 mls/hr IV .Q20H [facility] Stop: 09/08/21 01:59 Last Admin: 09/07/21 06:10 Dose: 50 mls/hr Documented by: Lactated Ringer's (Lactated Ringers) 1,000 mls @ 75 mls/hr IV .[id number] [facility] Last Admin: 09/07/21 15:14 Dose: 75 mls/hr Documented by: Iron Carb/Multivit/Instrument Operator/Folic Acid (Multivit,Ther Iron,Ca,Fa & Min 1 Tablet) 1 tab PO DAILY [facility] Last Admin: 09/07/21 10:01 Dose: 1 tab Documented by: Ketorolac Tromethamine (Ketorolac 15 Mg/Ml Vial) 15 mg IV Q6HP PRN; Protocol PRN Reason: Per Pain Protocol Stop: 09/08/21 08:14 Last Admin: 09/07/21 07:53 Dose: 15 mg Documented by: Levothyroxine Sodium (Levothyroxine 150 Mcg Tablet) 150 mcg PO QAMAC [facility] Last Admin: 09/07/21 07:52 Dose: 150 mcg Documented by: Magnesium Hydroxide (Magnesium Hydroxide 30 Ml Oral.Susp) 30 ml PO BIDP PRN PRN Reason: Constipation Melatonin (Melatonin 3 Mg Tablet) 3 mg PO HSP PRN PRN Reason: Insomnia Methocarbamol (Methocarbamol 1,000 Mg/10 Ml Vial) 750 mg IV Q6HP PRN PRN Reason: Muscle Spasm Metoprolol Tartrate (Metoprolol Tartrate 5 Mg/5 Ml Vial) 5 mg IV Q5M PRN PRN Reason: Heart Rate > 140 bpm Midodrine (Midodrine 5 Mg Tablet) 10 mg PO TID@0800,1200,1700 [facility] Last Admin: 09/07/21 14:23 Dose: 10 mg Documented by: Morphine Sulfate (Morphine 4 Mg/Ml Vial) 0 mg IV Q1HP PRN; Protocol PRN Reason: Per Pain Protocol Last Admin: 09/07/21 04:03 Dose: 4 mg Documented by: Morphine Sulfate (Morphine 15 Mg Tab.Sr.12h) 60 mg PO BID [facility] Last Admin: 09/07/21 09:28 Dose: 60 mg Documented by: Naloxone HCl (Naloxone Hcl 0.4 Mg/Ml Vial) 0.1 mg IV Q2MIN PRN PRN Reason: Opiate Reversal Olanzapine (Olanzapine 5 Mg Tablet) 10 mg PO DAILY [facility] Last Admin: 09/07/21 10:00 Dose: 10 mg Documented by: Ondansetron HCl (Ondansetron 4 Mg/2 Ml Vial) 4 mg IV Q4HP PRN; Protocol PRN Reason: Nausea And Vomiting Ondansetron HCl (Ondansetron 4 Mg Odt Tablet) 4 mg SL Q4HP PRN; Protocol PRN Reason: Nausea And Vomiting Polyethylene Glycol (Polyethylene Glycol 3350 17 Gm Packet) 17 gm PO DAILYP PRN PRN Reason: Constipation Potassium Chloride (Potassium Chloride 10 Meq Tablet) 10 meq PO BIDCC [facility] Last Admin: 09/07/21 09:27 Dose: 10 meq Documented by: Quetiapine Fumarate (Quetiapine 25 Mg Tablet) 50 mg PO BID [facility] Last Admin: 09/07/21 10:00 Dose: 50 mg Documented by: Fluticasone/Salmeterol (Fluticasone/Salmeterol 250/50 Inhaler #14) 1 puff INH BID [facility] Last Admin: 09/07/21 09:22 Dose: Not Given Documented by: Senna/Docusate Sodium (Sennosides/Docusate Sodium 1 Tab Tablet) 1 tab PO HS [facility] Last Admin: 09/06/21 20:25 Dose: 1 tab Documented by: Sodium Biphosphate/Sodium Phosphate (Fleets Adult Enema) 1 dose [place] Q3-4DAYS PRN PRN Reason: Constipation Sodium Chloride (0.9 % Sodium Chloride 10 Ml Syringe) 10 ml IV Q8 [facility] Last Admin: 09/07/21 14:37 Dose: 10 ml Documented by: Throat Lozenges (Benzocaine/Menthol 1 Lozenge) 1 lozenge PO PRN PRN PRN Reason: Sore Throat Tizanidine HCl (Tizanidine 4 Mg Tablet) 4 mg PO TID [facility] Last Admin: 09/07/21 15:53 Dose: Not Given Documented by: Zolpidem Tartrate (Zolpidem 5 Mg Tablet) 10 mg PO HSP PRN PRN Reason: Insomnia A/P Narrative A/P Narrative: 1 day postop right hip IM nail for peritrochanteric fracture. Overall alignment of the fracture is reasonable with some displacement seen on the lateral view. However on AP view the neck is well aligned and I think this will go on to consolidate. Overall healing well from orthopedic standpoint. He has had an issue with desaturating likely secondary to aspiration I will leave this up to the ICU and medical team to manage. Plan: Continue to attempt weightbearing as tolerated. Discharge as per hospital team. From an orthopedic standpoint patient should follow-up in 2 weeks time for wound check and staple removal. For anticoagulation he can resume his home warfarin or equivalent as per medicine team. Orthopedics will sign off for now. Please call Dr. Curiel if any questions or concerns. Time Spent With Patient Time: Total time spent is greater than 50% in coordination of care (as documented) at patient's floor/unit and/or counseling patient:
[2021-09-07] MEDS: SENNOSIDES/DOCUSATE SODIUM 1 TAB TABLET PO SCH (20:57)
[2021-09-07] MEDS: GABAPENTIN 300 MG CAPSULE PO SCH (20:58)
[2021-09-08] MEDS: ACETAMINOPHEN 650 MG/65 ML BAG IV PRN (01:16)
[2021-09-08] MEDS ORDERED: MIDODRINE 5 MG TABLET PO ONE (02:46)
[2021-09-08] MEDS: LACTATED RINGERS 1,000 ML IV SCH ×3 (03:53→17:30)
[2021-09-08] MEDS: 0.9 % SODIUM CHLORIDE 10 ML SYRINGE IV SCH ×3 (05:53→21:49)
[2021-09-08] MEDS: LEVOTHYROXINE 150 MCG TABLET PO SCH (07:05)
[2021-09-08] MEDS: AMIODARONE HCL 200 MG TABLET PO SCH (07:05)
[2021-09-08] MEDS: MIDODRINE 5 MG TABLET PO SCH ×3 (07:05→17:13)
[2021-09-08] MEDS: POTASSIUM CHLORIDE 10 MEQ TABLET PO SCH ×2 (07:05→17:13)
[2021-09-08 08:37] LABS: Basophils # (Auto) 0.01 K/mcL (0.00-0.30); Basophils % (Auto) 0.2 % (0.0-2.0); Eosinophils # (Auto) 0.17 K/mcL (0.00-0.70); Eosinophils % (Auto) 4.1 % (0.0-7.0); Hematocrit 25.3 % (40.1-51.0); Hemoglobin 8.9 g/dL (13.7-17.5); Lymphocytes # (Auto) 0.79 K/mcL (1.50-4.80); Lymphocytes % (Auto) 18.9 % (15.5-49.0); Mean Cell Volume 89.7 fL (80.0-100.0); Mean Corpuscular HGB Conc 35.2 g/dL (31.0-36.0); Mean Platelet Volume 11.9 fL (7.4-10.4); Monocytes # (Auto) 0.25 K/mcL (0.10-0.90); Neutrophils % (Auto) 70.8 % (38.0-78.0); Platelet Count 120 K/mcL (140-440); RBC 2.82 M/mcL (4.63-6.08); Red Cell Distribution Width 14.7 % (11.5-14.5)
[2021-09-08 08:43] LABS: INR 1.2 (0.9-1.1); Prothrombin Time 15.3 sec (11.9-14.5)
[2021-09-08 08:49] LABS: ALT/SGPT < 5 U/L (<40); AST/SGOT 14 U/L (<40); Albumin 2.3 gm/dL (3.2-5.2); Alkaline Phosphatase 75 U/L (39-117); Bilirubin,Direct 0.4 mg/dL (<0.3); Bilirubin,Total 0.8 mg/dL (0.1-1.0); Blood Urea Nitrogen 11 mg/dL (8-23); Calcium 7.9 mg/dL (8.6-10.4); Carbon Dioxide 29 mmol/L (22-30); Chloride 101 mmol/L (96-108); Globulin 2.4 gm/dL (2.2-3.7); Glomerular Filtration Rate 98; Glucose 74 mg/dL (70-105); Lactate Dehydrogenase 134 U/L (135-225); Phosphorous 2.1 mg/dL (2.5-4.5); Triglycerides 86 mg/dL (<150); Uric Acid 2.2 mg/dL (2.5-8.0)
[2021-09-08] MEDS: FLUTICASONE/SALMETEROL 250/50 INHALER #14 INH SCH ×2 (10:08→21:48)
[2021-09-08] MEDS: ENOXAPARIN 30 MG/0.3 ML SYRINGE SQ SCH ×2 (10:08→21:47)
[2021-09-08] MEDS: MULTIVIT,THER IRON,CA,FA & MIN 1 TABLET PO SCH (10:08)
[2021-09-08] MEDS: ASPIRIN 81 MG TAB.CHEW PO SCH (10:08)
[2021-09-08] MEDS: CHLORHEXIDINE GLUCONATE 1 ML ORAL.SOL SWABMOUTH SCH ×2 (10:08→21:47)
[2021-09-08] MEDS: CITALOPRAM 20 MG TABLET PO SCH (10:09)
[2021-09-08] MEDS: OLANZapine 5 MG TABLET PO SCH (10:09)
[2021-09-08] MEDS: QUEtiapine 25 MG TABLET PO SCH ×2 (10:09→21:48)
[2021-09-08] MEDS: FUROSEMIDE 40 MG TABLET PO SCH (10:09)
[2021-09-08] MEDS: CARBIDOPA/LEVODOPA 25/100 TABLET PO SCH ×2 (10:16→21:47)
[2021-09-08] MEDS: ATORVASTATIN 10 MG TABLET PO SCH (10:16)
[2021-09-08] MEDS: tiZANidine 4 MG TABLET PO SCH ×3 (10:16→21:47)
[2021-09-08] MEDS: DIVALPROEX 125 MG CAP.SPRINK PO SCH ×2 (10:16→21:48)
[2021-09-08] MEDS: morphine 15 MG TAB.SR.12H PO SCH ×2 (10:17→21:49)
[2021-09-08] MEDS: DOCUSATE SODIUM 100 MG CAPSULE PO SCH (10:17)
[2021-09-08] MEDS: morphine 4 MG/ML VIAL IV PRN ×4 (10:18→22:41)
[2021-09-08 10:25] LABS: WBC 4.2 K/mcL (4.5-11.0)
--- NOTE | 2021-09-08 11:55 | Internal Med Progress Note ---
SUBJECTIVE Subjective Patient information: Note initiated : 09/08/21 at 11:54 am Service Date, if different from initiated Date: [] Patient: Oh Garcia a 66 y/o M admitted on 09/05/21 for Fall, Rt hip fx. Chief Complaint: [] Interval history: Mr. Garcia is a 66 year old M with a complex past medical history of Parkinson's disease with ataxia, autonomic dysfunction, chronic pain, hypothyroidism, neuropathy, atrial fibrillation on anticoagulation, anxiety disorder who presents to the ER after he fell due to Parkinson related ataxia. Patient denies losing consciousness or seizure episode or thunderclap headache. He further denies chest pain, palpitation but started experiencing right-sided hip and back pain. He was evaluated at [facility]. Imaging consistent with right hip fracture. Dr. Butler admitting orthopedic was consulted and requested transfer to [facility] for operative intervention. Patient was brought in to [facility] ER by ambulance. On arrival stable hemodynamics. Creatinine 1.48, bicarb 31, sodium 134, potassium 3.6, white count 9.7, hemoglobin 14.9 Subsequently hospital service was consulted for admission. At the time of my evaluation patient is alert and oriented. He denies active distress but end orses to right-sided hip pain. He endorses to history as above. Lives with his son who was out working at the time of fall Other than that patient denies sick contacts, fever, chills, diarrhea, dysuria, productive sputum, cough. 09/06-patient seen in postoperative phase. Doing well. Pain good control. On Jevity per tube. Restart home medications. No anxiety/concerns expressed with nursing staff. Stable hemodynamics. 09/07-patient seen in room postop day 1 around 11 AM doing well. Sitting on chair. Eating breakfast. Denies major concerns but feel little fatigued. Responded to rapid response around 1:15 PM. Patient was found to bradycardic in 50s, hypotensive around mid 50s systolic and sats low 70s. Patient was found gurgling. Started on nonrebreather mask/aggressive suctioning/POC stat labs. Crystalloid challenge with resultant improvement blood pressures to 90 systolic. Patient transferred to ICU. Oh said while he was sitting he regurgitated his gastric contents and was unable to spit it out and choked on it. Tube feeds discontinued and PEG tube decompressed. Start chest imaging bibasilar infiltrates suspicious for aspiration. Continue aspiration precaution, DC tube feeds. Keep n.p.o. Close hemodynamic monitoring. Hemoglobin stable 09/08-patient continues to remain hypotensive. Start pressors. Keep n.p.o. due to recurrent aspiration. On 3 to 4 L oxygen. White count 4.2, resume tube feeds per dietitian. Remains critically ill. Postop day 3. Start Coumadin while patient continues on twice daily Lovenox. Await digoxin level. Continue Coumadin. Constitutional Vitals: Vital Signs Temp Pulse Resp BP Pulse Ox 96.9 F L 53 L 13 94/40 93 09/08/21 04:00 09/07/21 14:00 09/08/21 10:22 09/08/21 10:02 09/08/21 10:05 Period Temp Pulse Resp BP Sys/Roland Pulse Ox Last 24 Hr 96.9 F-97.6 F 50-53 9-20 62-110/18-73 3-100 Intake and Output 09/07/21 09/08/21 09/08/21 21:59 05:59 13:59 Intake Total 1247 1074 90 Output Total 695 180 40 Balance 552 894 50 Weight 73.142 kg fatigue lethargic Hypotensive and bradycardic on telemetry PEG tube site no erythema Intake & Output: Intake & Output 09/07/21 09/08/21 09/08/21 21:59 05:59 13:59 Intake Total 1247 1074 90 Output Total 695 180 40 Balance 552 894 50 Weight 73.142 kg Intake: IV 1117 1014 Sodium Chloride 0.9% 1,000 ml @ 617 50 mls/hr IV .Q20H [facility] Rx#: [id number] Sodium Chloride 0.9% 500 ml @ 500 Wide Open IV .Q0M ONE Rx#: [id number] Lactated Ringers 1,000 ml @ 75 949 mls/hr IV .[id number] [facility] Rx#: [id number] Tube Feeding 0 0 0 GI Tube Flush 90 NG Tube Flush 130 60 Mid Upper Abdomen 130 60 Output: Gastric Drainage 45 40 Mid Upper Abdomen 45 40 Urine Catheter Amount 650 180 Other: Urine Appearance Clear Clear Uretheral (Gordillo) Clear Urine Color Dark Yellow Dark Yellow Uretheral (Gordillo) Bright Yellow OBJ DATA Labs CBC & Chem 7: 09/08/21 05:25 09/08/21 05:25 Labs: Abnormal Lab Results 09/08/21 09/08/21 09/08/21 05:25 05:25 05:25 WBC 4.2 L RBC 2.82 L Hgb 8.9 L Hct 25.3 L POC Hct RDW 14.7 H Plt Count 120 L MPV 11.9 H Lymph % (Auto) Lymph # (Auto) 0.79 L PT 15.3 H INR 1.2 H Anion Gap 6.0 L Glucose Uric Acid 2.2 L Calcium 7.9 L POC WB Ioniz Calcium Phosphorus 2.1 L Direct Bilirubin 0.4 H Lactate Dehydrogenase 134 L Total Protein 4.7 L Albumin 2.3 L Prealbumin 09/07/21 09/07/21 09/07/21 13:25 05:25 05:25 WBC RBC 3.38 L Hgb 10.4 L Hct 30.0 L POC Hct 32 L RDW 14.6 H Plt Count MPV 10.9 H Lymph % (Auto) 13.7 L Lymph # (Auto) 0.95 L PT 15.3 H INR 1.2 H Anion Gap Glucose Uric Acid Calcium POC WB Ioniz Calcium 1.11 L Phosphorus Direct Bilirubin Lactate Dehydrogenase Total Protein Albumin Prealbumin 09/07/21 09/06/21 09/06/21 05:24 11:45 05:22 WBC RBC Hgb Hct POC Hct RDW Plt Count MPV Lymph % (Auto) Lymph # (Auto) PT INR Anion Gap Glucose 124 H Uric Acid Calcium 8.1 L 8.4 L POC WB Ioniz Calcium Phosphorus Direct Bilirubin 0.3 H 0.4 H Lactate Dehydrogenase Total Protein 5.3 L 5.6 L Albumin 2.9 L 2.9 L Prealbumin 9.9 L 09/06/21 09/06/21 09/05/21 05:22 05:22 12:43 WBC RBC 3.87 L Hgb 11.5 L Hct 34.7 L POC Hct RDW Plt Count MPV 11.5 H Lymph % (Auto) Lymph # (Auto) PT 14.7 H 14.6 H INR Anion Gap Glucose Uric Acid Calcium POC WB Ioniz Calcium Phosphorus Direct Bilirubin Lactate Dehydrogenase Total Protein Albumin Prealbumin Meds: Medications Acetaminophen (Acetaminophen 325 Mg Tablet) 650 mg PO Q6HP PRN; Protocol PRN Reason: Per Pain Protocol/Fever > 101 Hydrocodone Bitart/Acetaminophen (Hydrocodone/Apap 7.5/325mg Tablet) 0 tab PO Q4HP PRN; Protocol PRN Reason: Per Pain Protocol Last Admin: 09/06/21 15:43 Dose: 1 tab Documented by: Amiodarone HCl (Amiodarone Hcl 200 Mg Tablet) 200 mg PO [facility] Last Admin: 09/08/21 07:05 Dose: 200 mg Documented by: Aspirin (Aspirin 81 Mg Tab.Chew) 81 mg PO DAILY [facility] Last Admin: 09/08/21 10:08 Dose: 81 mg Documented by: Atorvastatin Calcium (Atorvastatin 10 Mg Tablet) 10 mg PO QDAY [facility] Last Admin: 09/08/21 10:16 Dose: 10 mg Documented by: Bisacodyl (Bisacodyl 10 Mg Supp.Rect) 10 mg NM Q2-3DAYS PRN PRN Reason: Constipation Carbidopa/Levodopa (Carbidopa/Levodopa 25/100 Tablet) 1 tab PO BID [facility] Last Admin: 09/08/21 10:16 Dose: 1 tab Documented by: Chlorhexidine Gluconate (Chlorhexidine Gluconate 1 Ml Oral.Margaret) 15 ml [place]AB[place]OUTH BID [facility] Last Admin: 09/08/21 10:08 Dose: 15 ml Documented by: Citalopram Hydrobromide (Citalopram 20 Mg Tablet) 20 mg PO QDAY [facility] Last Admin: 09/08/21 10:09 Dose: 20 mg Documented by: Diazepam (Diazepam 10 Mg Tablet) 10 mg PO DAILYP PRN PRN Reason: Anxiety Digoxin (Digoxin 125 Mcg Tablet) 125 mcg PO DAILY@1400 [facility] Last Admin: 09/07/21 14:33 Dose: Not Given Documented by: Divalproex Sodium (Divalproex 125 Mg Cap.Sprink) 1,000 mg PO [facility] Last Admin: 09/07/21 20:59 Dose: 1,000 mg Documented by: Divalproex Sodium (Divalproex 125 Mg Cap.Sprink) 500 mg PO DAILY [facility] Last Admin: 09/08/21 10:16 Dose: 500 mg Documented by: Docusate Sodium (Docusate Sodium 50 Mg/5 Ml Oral.Margaret) 100 mg PT BID [facility] Enoxaparin Sodium (Enoxaparin 30 Mg/0.3 Ml Syringe) 30 mg SQ BID [facility] Last Admin: 09/08/21 10:08 Dose: 30 mg Documented by: Furosemide (Furosemide 40 Mg Tablet) 40 mg PO QDAY [facility] Last Admin: 09/08/21 10:09 Dose: 40 mg Documented by: Gabapentin (Gabapentin 300 Mg Capsule) 300 mg PO QHS [facility] Last Admin: 09/07/21 20:58 Dose: Not Given Documented by: Hydralazine HCl (Hydralazine 20 Mg/Ml Vial) 10 mg IV Q4-6HP PRN PRN Reason: Hypertension Potassium Chloride 40 meq/ (Dextrose) 520 mls @ 130 mls/hr IV UD PRN PRN Reason: K+ = or < 3.5 Acetaminophen (Ofirmev) 650 mg in 65 mls @ 130 mls/hr IV Q6HP PRN; Protocol PRN Reason: Per Pain Protocol/Fever > 101 Last Infusion: 09/08/21 02:00 Dose: Infused Documented by: Magnesium Sulfate (Magnesium Sulfate) 2 gm in 50 mls @ 50 mls/hr IV UD PRN PRN Reason: MG = or < 1.7 Lactated Ringer's (Lactated Ringers) 1,000 mls @ 75 mls/hr IV .[id number] [facility] Last Admin: 09/08/21 03:53 Dose: 75 mls/hr Documented by: Levothyroxine Sodium (Levothyroxine 150 Mcg Tablet) 150 mcg PO QAMAC [facility] Last Admin: 09/08/21 07:05 Dose: 150 mcg Documented by: Magnesium Hydroxide (Magnesium Hydroxide 30 Ml Oral.Susp) 30 ml PO BIDP PRN PRN Reason: Constipation Melatonin (Melatonin 3 Mg Tablet) 3 mg PO HSP PRN PRN Reason: Insomnia Methocarbamol (Methocarbamol 1,000 Mg/10 Ml Vial) 750 mg IV Q6HP PRN PRN Reason: Muscle Spasm Metoprolol Tartrate (Metoprolol Tartrate 5 Mg/5 Ml Vial) 5 mg IV Q5M PRN PRN Reason: Heart Rate > 140 bpm Midodrine (Midodrine 5 Mg Tablet) 10 mg PO TID@0800,1200,1700 [facility] Last Admin: 09/08/21 11:16 Dose: 10 mg Documented by: Morphine Sulfate (Morphine 4 Mg/Ml Vial) 0 mg IV Q1HP PRN; Protocol PRN Reason: Per Pain Protocol Last Admin: 09/08/21 10:18 Dose: 4 mg Documented by: Morphine Sulfate (Morphine 15 Mg Tab.Sr.12h) 60 mg PO BID [facility] Last Admin: 09/08/21 10:17 Dose: Not Given Documented by: Multivitamins (Multivitamins,Therapeutic 1 Ml Oral.Margaret) 5 ml PT DAILY [facility] Naloxone HCl (Naloxone Hcl 0.4 Mg/Ml Vial) 0.1 mg IV Q2MIN PRN PRN Reason: Opiate Reversal Olanzapine (Olanzapine 5 Mg Tablet) 10 mg PO DAILY [facility] Last Admin: 09/08/21 10:09 Dose: 10 mg Documented by: Ondansetron HCl (Ondansetron 4 Mg/2 Ml Vial) 4 mg IV Q4HP PRN; Protocol PRN Reason: Nausea And Vomiting Ondansetron HCl (Ondansetron 4 Mg Odt Tablet) 4 mg SL Q4HP PRN; Protocol PRN Reason: Nausea And Vomiting Polyethylene Glycol (Polyethylene Glycol 3350 17 Gm Packet) 17 gm PO DAILYP PRN PRN Reason: Constipation Potassium Chloride (Potassium Chloride 10 Meq Tablet) 10 meq PO BIDCC [facility] Last Admin: 09/08/21 07:05 Dose: 10 meq Documented by: Quetiapine Fumarate (Quetiapine 25 Mg Tablet) 50 mg PO BID [facility] Last Admin: 09/08/21 10:09 Dose: 50 mg Documented by: Fluticasone/Salmeterol (Fluticasone/Salmeterol 250/50 Inhaler #14) 1 puff INH BID [facility] Last Admin: 09/08/21 10:08 Dose: Not Given Documented by: Senna/Docusate Sodium (Sennosides/Docusate Sodium 1 Tab Tablet) 1 tab PO HS [facility] Last Admin: 09/07/21 20:57 Dose: 1 tab Documented by: Sodium Biphosphate/Sodium Phosphate (Fleets Adult Enema) 1 dose NM Q3-4DAYS PRN PRN Reason: Constipation Sodium Chloride (0.9 % Sodium Chloride 10 Ml Syringe) 10 ml IV Q8 [facility] Last Admin: 09/08/21 05:53 Dose: Not Given Documented by: Throat Lozenges (Benzocaine/Menthol 1 Lozenge) 1 lozenge PO PRN PRN PRN Reason: Sore Throat Tizanidine HCl (Tizanidine 4 Mg Tablet) 4 mg PO TID [facility] Last Admin: 09/08/21 10:16 Dose: 4 mg Documented by: Warfarin Sodium (Warfarin Per Pharmacy) 1 order PO UD [facility] Warfarin Sodium (Warfarin 5 Mg Tablet) 5 mg PO ONCE@1400 ONE Stop: 09/08/21 14:01 Zolpidem Tartrate (Zolpidem 5 Mg Tablet) 10 mg PO HSP PRN PRN Reason: Insomnia A/P Assessment and plan (1) Fracture of hip: Assessment and plan: * Right hip fracture postop day 3. Doing well postop * Shock likely hypovolemic. Continue crystalloid/start pressors. * Acute hypoxic respiratory failure secondary to aspiration pneumonia. Weaning oxygen as tolerated currently on 3 L oxygen * Aspiration pneumonia-restart tube feeds, keep HOB elevation/aspiration precaution/n.p.o. * Atrial fibrillation rate controlled. On amiodarone/check digoxin level On Coumadin * History of ataxia/Parkinson's and recurrent fall. Physical therapy/gait and safety eval as tolerated maintain fall risk * Anxiety disorder continue citalopram * Anticoagulation on Coumadin * Hypothyroidism continue thyroxine * History of Parkinson's disease continue levodopa carbidopa * Neuropathy continue gabapentin * Orthostatic hypotension secondary to autonomic dysfunction continue midodrine * Hyperlipidemia continue statin * Dysphagia status post PEG tube placement on PEG tube feeds per dietitian PLAN * ICU care * Vasopressors * Elevate HOB/aspiration precautions * Wean oxygen as tolerated * Pre-existing medical condition management Home medications * Physical therapy * Coumadin management Status: Acute Qualifiers: Encounter type: initial encounter Fracture type: closed Laterality: right Qualified Code(s): S72.001A - Fracture of unspecified part of neck of right femur, initial encounter for closed fracture Time Spent With Patient Time: CC time Total time spent with greater than 50% in coordination of care (as documented) at patient's floor/unit and/or counseling patient:: Greater than 35 minutes QUALITY VTE Deep Vein Thrombosis/Pulmonary Embolism Present on Admission: No
[2021-09-08] MEDS: 0.9 % SODIUM CHLORIDE 250 ML IV SCH (13:09)
[2021-09-08] MEDS: NOREPINEPHRINE BITARTRATE 8 MG in 0.9 % SODIUM CHLORIDE 242 ML IV SCH (13:18)
[2021-09-08] MEDS ORDERED: WARFARIN 5 MG TABLET PO ONE (14:00)
[2021-09-08] MEDS: SENNOSIDES/DOCUSATE SODIUM 1 TAB TABLET PO SCH (21:47)
[2021-09-08] MEDS: DOCUSATE SODIUM 50 MG/5 ML ORAL.SOL PT SCH (21:48)
[2021-09-08] MEDS: GABAPENTIN 300 MG CAPSULE PO SCH (21:49)
[2021-09-09] MEDS: 0.9 % SODIUM CHLORIDE 250 ML IV SCH ×2 (01:13→15:08)
[2021-09-09] MEDS: morphine 4 MG/ML VIAL IV PRN ×5 (01:18→21:05)
[2021-09-09] MEDS: 0.9 % SODIUM CHLORIDE 10 ML SYRINGE IV SCH ×3 (06:02→21:07)
[2021-09-09] MEDS: LACTATED RINGERS 1,000 ML IV SCH ×3 (06:02→19:04)
[2021-09-09] MEDS: NOREPINEPHRINE BITARTRATE 8 MG in 0.9 % SODIUM CHLORIDE 242 ML IV SCH (06:02)
[2021-09-09] MEDS: METHOCARBAMOL 1,000 MG/10 ML VIAL IV PRN ×2 (07:00→21:56)
[2021-09-09] MEDS: POTASSIUM CHLORIDE 10 MEQ TABLET PO SCH ×2 (07:01→17:10)
[2021-09-09] MEDS: LEVOTHYROXINE 150 MCG TABLET PO SCH (07:01)
[2021-09-09] MEDS: MIDODRINE 5 MG TABLET PO SCH ×3 (07:01→17:10)
[2021-09-09] MEDS: AMIODARONE HCL 200 MG TABLET PO SCH (07:01)
[2021-09-09] MEDS: FLUTICASONE/SALMETEROL 250/50 INHALER #14 INH SCH ×2 (07:29→21:56)
[2021-09-09] MEDS: CHLORHEXIDINE GLUCONATE 1 ML ORAL.SOL SWABMOUTH SCH ×2 (08:17→21:57)
[2021-09-09] MEDS: CITALOPRAM 20 MG TABLET PO SCH (08:17)
[2021-09-09] MEDS: MULTIVITAMINS,THERAPEUTIC 1 ML ORAL.SOL PT SCH (08:17)
[2021-09-09] MEDS: CARBIDOPA/LEVODOPA 25/100 TABLET PO SCH ×2 (08:17→21:55)
[2021-09-09] MEDS: ENOXAPARIN 30 MG/0.3 ML SYRINGE SQ SCH ×2 (08:17→21:55)
[2021-09-09] MEDS: ATORVASTATIN 10 MG TABLET PO SCH (08:17)
[2021-09-09] MEDS: tiZANidine 4 MG TABLET PO SCH ×3 (08:17→21:57)
[2021-09-09] MEDS: DOCUSATE SODIUM 50 MG/5 ML ORAL.SOL PT SCH ×2 (08:17→21:55)
[2021-09-09] MEDS: DIVALPROEX 125 MG CAP.SPRINK PO SCH ×2 (08:18→21:56)
[2021-09-09] MEDS: OLANZapine 5 MG TABLET PO SCH (08:18)
[2021-09-09] MEDS: ASPIRIN 81 MG TAB.CHEW PO SCH (08:18)
[2021-09-09] MEDS: QUEtiapine 25 MG TABLET PO SCH ×2 (08:18→21:55)
[2021-09-09] MEDS: morphine 15 MG TAB.SR.12H PO SCH ×2 (08:47→21:56)
[2021-09-09 09:17] LABS: Basophils # (Auto) 0.02 K/mcL (0.00-0.30); Basophils % (Auto) 0.3 % (0.0-2.0); Eosinophils # (Auto) 0.37 K/mcL (0.00-0.70); Eosinophils % (Auto) 5.8 % (0.0-7.0); Hematocrit 26.4 % (40.1-51.0); Hemoglobin 9.1 g/dL (13.7-17.5); Lymphocytes # (Auto) 1.19 K/mcL (1.50-4.80); Lymphocytes % (Auto) 18.5 % (15.5-49.0); Mean Cell Volume 89.5 fL (80.0-100.0); Mean Corpuscular HGB Conc 34.5 g/dL (31.0-36.0); Mean Platelet Volume 11.6 fL (7.4-10.4); Monocytes # (Auto) 0.38 K/mcL (0.10-0.90); Monocytes % (Auto) 5.9 % (1.0-12.0); Neutrophils % (Auto) 69.5 % (38.0-78.0); Platelet Count 139 K/mcL (140-440); RBC 2.95 M/mcL (4.63-6.08); Red Cell Distribution Width 14.7 % (11.5-14.5); WBC 6.4 K/mcL (4.5-11.0)
[2021-09-09 09:20] LABS: INR 1.8 (0.9-1.1); Prothrombin Time 22.1 sec (11.9-14.5)
[2021-09-09 09:28] LABS: ALT/SGPT < 5 U/L (<40); AST/SGOT 16 U/L (<40); Albumin 2.4 gm/dL (3.2-5.2); Albumin/Globulin Ratio 0.9 (1.0-2.3); Alkaline Phosphatase 86 U/L (39-117); Bilirubin,Direct 0.5 mg/dL (<0.3); Bilirubin,Total 0.8 mg/dL (0.1-1.0); Blood Urea Nitrogen 9 mg/dL (8-23); Calcium 7.9 mg/dL (8.6-10.4); Carbon Dioxide 30 mmol/L (22-30); Chloride 100 mmol/L (96-108); Globulin 2.6 gm/dL (2.2-3.7); Glomerular Filtration Rate 105; Glucose 61 mg/dL (70-105); Lactate Dehydrogenase 154 U/L (135-225); Phosphorous 1.8 mg/dL (2.5-4.5); Triglycerides 90 mg/dL (<150); Uric Acid 2.2 mg/dL (2.5-8.0)
--- NOTE | 2021-09-09 11:13 | Internal Med Progress Note ---
SUBJECTIVE Subjective Patient information: Note initiated : 09/09/21 at 11:09 am Service Date, if different from initiated Date: [] Patient: Oh Garcia a 66 y/o M admitted on 09/05/21 for Fall, Rt hip fx. Chief Complaint: [] Interval history: Mr. Garcia is a 66 year old M with a complex past medical history of Parkinson's disease with ataxia, autonomic dysfunction, chronic pain, hypothyroidism, neuropathy, atrial fibrillation on anticoagulation, anxiety disorder who presents to the ER after he fell due to Parkinson related ataxia. Patient denies losing consciousness or seizure episode or thunderclap headache. He further denies chest pain, palpitation but started experiencing right-sided hip and back pain. He was evaluated at [facility]. Imaging consistent with right hip fracture. Dr. Butler admitting orthopedic was consulted and requested transfer to [facility] for operative intervention. Patient was brought in to [facility] ER by ambulance. On arrival stable hemodynamics. Creatinine 1.48, bicarb 31, sodium 134, potassium 3.6, white count 9.7, hemoglobin 14.9 Subsequently hospital service was consulted for admission. At the time of my evaluation patient is alert and oriented. He denies active distress but end orses to right-sided hip pain. He endorses to history as above. Lives with his son who was out working at the time of fall Other than that patient denies sick contacts, fever, chills, diarrhea, dysuria, productive sputum, cough. 09/06-patient seen in postoperative phase. Doing well. Pain good control. On Jevity per tube. Restart home medications. No anxiety/concerns expressed with nursing staff. Stable hemodynamics. 09/07-patient seen in room postop day 1 around 11 AM doing well. Sitting on chair. Eating breakfast. Denies major concerns but feel little fatigued. Responded to rapid response around 1:15 PM. Patient was found to bradycardic in 50s, hypotensive around mid 50s systolic and sats low 70s. Patient was found gurgling. Started on nonrebreather mask/aggressive suctioning/POC stat labs. Crystalloid challenge with resultant improvement blood pressures to 90 systolic. Patient transferred to ICU. Oh said while he was sitting he regurgitated his gastric contents and was unable to spit it out and choked on it. Tube feeds discontinued and PEG tube decompressed. Start chest imaging bibasilar infiltrates suspicious for aspiration. Continue aspiration precaution, DC tube feeds. Keep n.p.o. Close hemodynamic monitoring. Hemoglobin stable 09/08-patient continues to remain hypotensive. Start pressors. Keep n.p.o. due to recurrent aspiration. On 3 to 4 L oxygen. White count 4.2, resume tube feeds per dietitian. Remains critically ill. Postop day 3. Start Coumadin while patient continues on twice daily Lovenox. Await digoxin level. Continue Coumadin. 09/09-patient doing well on Levophed. Systolics, map at goal. Improved renal function. Improved urine output. Still feels weak and unsteady on feet. Wean Levophed. Now on 1 L oxygen. Transition to medical floor later today if able to stay off Levophed for 6 to 8 hours. Case management to coordinate transfer to SNF in the next 48 hours. No overnight fever chills, dietitian to restart tube feeds, INR 1.8. DC Lovenox once therapeutic, digoxin level 1, phosphorus 1.8 on replacement Constitutional Vitals: Vital Signs Temp Pulse Resp BP Pulse Ox 97.7 F 53 L 19 112/65 90 09/09/21 08:01 09/07/21 14:00 09/09/21 10:04 09/09/21 10:04 09/09/21 10:04 Period Temp Pulse Resp BP Sys/Roland Pulse Ox Last 24 Hr 96.8 F-98.3 F - 70-184/32-113 84-100 Intake and Output 09/08/21 09/09/21 09/09/21 21:59 05:59 13:59 Intake Total 2965 097 1209 Output Total 1365 1230 290 Balance -168 -975 1025 Weight 72.121 kg Alert oriented Feels weak and fatigued Nonlabored breathing on 1 L oxygen No lymphedema No telemetry events Intake & Output: Intake & Output 09/08/21 09/09/21 09/09/21 21:59 05:59 13:59 Intake Total 2412 352 6846 Output Total 1365 1230 290 Balance -168 -975 1025 Weight 72.121 kg Intake: IV 1685 923 3440 Sodium Chloride 0.9% 250 ml @ 241 182 20 mls/hr IV .[id number] [facility] Rx#: [id number] Lactated Ringers 1,000 ml @ 75 1000 940 mls/hr IV .[id number] [facility] Rx#: [id number] Levophed 8 mg In Sodium 17 14 13 Chloride 0.9% 242 ml @ 10 MCG/ MIN 18.75 mls/hr IV Q14H [facility] Rx #:[id number] Tube Feeding 0 0 0 GI Tube Flush 90 180 NG Tube Flush 90 Mid Upper Abdomen 90 Output: Urine Catheter Amount 1365 1230 290 Other: Urine Appearance Clear Clear Clear Uretheral (Gordillo) Clear Urine Color Straw Bright Yellow Bright Yellow Uretheral (G[place]illo) Straw OBJ DATA Labs CBC & Chem 7: 09/09/21 05:28 09/09/21 05:28 Labs: Abnormal Lab Results 09/09/21 09/09/21 09/09/21 05:28 05:28 05:28 WBC RBC 2.95 L Hgb 9.1 L Hct 26.4 L POC Hct RDW 14.7 H Plt Count 139 L MPV 11.6 H Lymph % (Auto) Lymph # (Auto) 1.19 L PT 22.1 H INR 1.8 H Anion Gap 6.0 L Creatinine 0.6 L Glucose 61 L Uric Acid 2.2 L Calcium 7.9 L POC WB Ioniz Calcium Phosphorus 1.8 L Direct Bilirubin 0.5 H Lactate Dehydrogenase Total Protein 5.0 L Albumin 2.4 L Albumin/Globulin Ratio 0.9 L Prealbumin 09/08/21 09/08/21 09/08/21 05:25 05:25 05:25 WBC 4.2 L RBC 2.82 L Hgb 8.9 L Hct 25.3 L POC Hct RDW 14.7 H Plt Count 120 L MPV 11.9 H Lymph % (Auto) Lymph # (Auto) 0.79 L PT 15.3 H INR 1.2 H Anion Gap 6.0 L Creatinine Glucose Uric Acid 2.2 L Calcium 7.9 L POC WB Ioniz Calcium Phosphorus 2.1 L Direct Bilirubin 0.4 H Lactate Dehydrogenase 134 L Total Protein 4.7 L Albumin 2.3 L Albumin/Globulin Ratio Prealbumin 09/07/21 09/07/21 09/07/21 13:25 05:25 05:25 WBC RBC 3.38 L Hgb 10.4 L Hct 30.0 L POC Hct 32 L RDW 14.6 H Plt Count MPV 10.9 H Lymph % (Auto) 13.7 L Lymph # (Auto) 0.95 L PT 15.3 H INR 1.2 H Anion Gap Creatinine Glucose Uric Acid Calcium POC WB Ioniz Calcium 1.11 L Phosphorus Direct Bilirubin Lactate Dehydrogenase Total Protein Albumin Albumin/Globulin Ratio Prealbumin 09/07/21 09/06/21 05:24 11:45 WBC RBC Hgb Hct POC Hct RDW Plt Count MPV Lymph % (Auto) Lymph # (Auto) PT INR Anion Gap Creatinine Glucose 124 H Uric Acid Calcium 8.1 L POC WB Ioniz Calcium Phosphorus Direct Bilirubin 0.3 H Lactate Dehydrogenase Total Protein 5.3 L Albumin 2.9 L Albumin/Globulin Ratio Prealbumin 9.9 L Meds: Medications Acetaminophen (Acetaminophen 325 Mg Tablet) 650 mg PO Q6HP PRN; Protocol PRN Reason: Per Pain Protocol/Fever > 101 Hydrocodone Bitart/Acetaminophen (Hydrocodone/Apap 7.5/325mg Tablet) 0 tab PO Q4HP PRN; Protocol PRN Reason: Per Pain Protocol Last Admin: 09/06/21 15:43 Dose: 1 tab Documented by: Amiodarone HCl (Amiodarone Hcl 200 Mg Tablet) 200 mg PO [facility] Last Admin: 09/09/21 07:01 Dose: 200 mg Documented by: Aspirin (Aspirin 81 Mg Tab.Chew) 81 mg PO DAILY [facility] Last Admin: 09/09/21 08:18 Dose: 81 mg Documented by: Atorvastatin Calcium (Atorvastatin 10 Mg Tablet) 10 mg PO QDAY [facility] Last Admin: 09/09/21 08:17 Dose: 10 mg Documented by: Bisacodyl (Bisacodyl 10 Mg Supp.Rect) 10 mg MA Q2-3DAYS PRN PRN Reason: Constipation Carbidopa/Levodopa (Carbidopa/Levodopa 25/100 Tablet) 1 tab PO BID [facility] Last Admin: 09/09/21 08:17 Dose: 1 tab Documented by: Chlorhexidine Gluconate (Chlorhexidine Gluconate 1 Ml Oral.Margaret) 15 ml SWABMOUTH BID [facility] Last Admin: 09/09/21 08:17 Dose: 15 ml Documented by: Citalopram Hydrobromide (Citalopram 20 Mg Tablet) 20 mg PO QDAY [facility] Last Admin: 09/09/21 08:17 Dose: 20 mg Documented by: Diazepam (Diazepam 10 Mg Tablet) 10 mg PO DAILYP PRN PRN Reason: Anxiety Divalproex Sodium (Divalproex 125 Mg Cap.Sprink) 1,000 mg PO HS [facility] Last Admin: 09/08/21 21:48 Dose: 1,000 mg Documented by: Divalproex Sodium (Divalproex 125 Mg Cap.Sprink) 500 mg PO DAILY [facility] Last Admin: 09/09/21 08:18 Dose: 500 mg Documented by: Docusate Sodium (Docusate Sodium 50 Mg/5 Ml Oral.Margaret) 100 mg PT BID [facility] Last Admin: 09/09/21 08:17 Dose: 100 mg Documented by: Enoxaparin Sodium (Enoxaparin 30 Mg/0.3 Ml Syringe) 30 mg SQ BID [facility] Last Admin: 09/09/21 08:17 Dose: 30 mg Documented by: Gabapentin (Gabapentin 300 Mg Capsule) 300 mg PO QHS [facility] Last Admin: 09/08/21 21:49 Dose: Not Given Documented by: Potassium Chloride 40 meq/ (Dextrose) 520 mls @ 130 mls/hr IV UD PRN PRN Reason: K+ = or < 3.5 Acetaminophen (Ofirmev) 650 mg in 65 mls @ 130 mls/hr IV Q6HP PRN; Protocol PRN Reason: Per Pain Protocol/Fever > 101 Last Infusion: 09/08/21 02:00 Dose: Infused Documented by: Magnesium Sulfate (Magnesium Sulfate) 2 gm in 50 mls @ 50 mls/hr IV UD PRN PRN Reason: MG = or < 1.7 Lactated Ringer's (Lactated Ringers) 1,000 mls @ 75 mls/hr IV .[id number] [facility] Last Admin: 09/09/21 06:02 Dose: 75 mls/hr Documented by: Norepinephrine Bitartrate 8 mg (/ Sodium Chloride) 250 mls @ 18.75 mls/hr IV Q14H [facility]; Protocol Last Titration: 09/09/21 10:00 Dose: 0 mcg/min, 0 mls/hr Documented by: Sodium Chloride (Sodium Chloride 0.9%) 250 mls @ 20 mls/hr IV .[id number] [facility] Last Infusion: 09/09/21 10:20 Dose: 0 mls/hr Documented by: Levothyroxine Sodium (Levothyroxine 150 Mcg Tablet) 150 mcg PO QAMAC [facility] Last Admin: 09/09/21 07:01 Dose: 150 mcg Documented by: Magnesium Hydroxide (Magnesium Hydroxide 30 Ml Oral.Susp) 30 ml PO BIDP PRN PRN Reason: Constipation Melatonin (Melatonin 3 Mg Tablet) 3 mg PO HSP PRN PRN Reason: Insomnia Methocarbamol (Methocarbamol 1,000 Mg/10 Ml Vial) 750 mg IV Q6HP PRN PRN Reason: Muscle Spasm Last Admin: 09/09/21 07:00 Dose: 750 mg Documented by: Midodrine (Midodrine 5 Mg Tablet) 10 mg PO TID@0800,1200,1700 [facility] Last Admin: 09/09/21 07:01 Dose: 10 mg Documented by: Morphine Sulfate (Morphine 4 Mg/Ml Vial) 0 mg IV Q1HP PRN; Protocol PRN Reason: Per Pain Protocol Last Admin: 09/09/21 10:09 Dose: 4 mg Documented by: Morphine Sulfate (Morphine 15 Mg Tab.Sr.12h) 60 mg PO BID [facility] Last Admin: 09/09/21 08:47 Dose: Not Given Documented by: Multivitamins (Multivitamins,Therapeutic 1 Ml Oral.Margaret) 5 ml PT DAILY [facility] Last Admin: 09/09/21 08:17 Dose: 5 ml Documented by: Naloxone HCl (Naloxone Hcl 0.4 Mg/Ml Vial) 0.1 mg IV Q2MIN PRN PRN Reason: Opiate Reversal Olanzapine (Olanzapine 5 Mg Tablet) 10 mg PO DAILY [facility] Last Admin: 09/09/21 08:18 Dose: 10 mg Documented by: Ondansetron HCl (Ondansetron 4 Mg/2 Ml Vial) 4 mg IV Q4HP PRN; Protocol PRN Reason: Nausea And Vomiting Ondansetron HCl (Ondansetron 4 Mg Odt Tablet) 4 mg SL Q4HP PRN; Protocol PRN Reason: Nausea And Vomiting Polyethylene Glycol (Polyethylene Glycol 3350 17 Gm Packet) 17 gm PO DAILYP PRN PRN Reason: Constipation Potassium Chloride (Potassium Chloride 10 Meq Tablet) 10 meq PO BIDCC [facility] Last Admin: 09/09/21 07:01 Dose: 10 meq Documented by: Quetiapine Fumarate (Quetiapine 25 Mg Tablet) 50 mg PO BID [facility] Last Admin: 09/09/21 08:18 Dose: 50 mg Documented by: Fluticasone/Salmeterol (Fluticasone/Salmeterol 250/50 Inhaler #14) 1 puff INH BID [facility] Last Admin: 09/09/21 07:29 Dose: Not Given Documented by: Senna/Docusate Sodium (Sennosides/Docusate Sodium 1 Tab Tablet) 1 tab PO HS [facility] Last Admin: 09/08/21 21:47 Dose: 1 tab Documented by: Sodium Biphosphate/Sodium Phosphate (Fleets Adult Enema) 1 dose MA Q3-4DAYS PRN PRN Reason: Constipation Sodium Chloride (0.9 % Sodium Chloride 10 Ml Syringe) 10 ml IV Q8 [facility] Last Admin: 09/09/21 06:02 Dose: 10 ml Documented by: Throat Lozenges (Benzocaine/Menthol 1 Lozenge) 1 lozenge PO PRN PRN PRN Reason: Sore Throat Tizanidine HCl (Tizanidine 4 Mg Tablet) 4 mg PO TID [facility] Last Admin: 09/09/21 08:17 Dose: 4 mg Documented by: Warfarin Sodium (Warfarin Per Pharmacy) 1 order PO [facility] [place]farin Sodium (Warfarin 5 Mg Tablet) 5 mg PO ONCE@1400 ONE Stop: 09/09/21 14:01 Zolpidem Tartrate (Zolpidem 5 Mg Tablet) 10 mg PO HSP PRN PRN Reason: Insomnia A/P Assessment and plan (1) Fracture of hip: Assessment and plan: * Right hip fracture postop day 4. Doing well postop, will likely transfer to SNF on discharge * Shock likely hypovolemic. Weaning Levophed. Continue midodrine. Encourage oral fluid. On IV crystalloids * Acute hypoxic respiratory failure secondary to aspiration pneumonia. On 1 L oxygen clinically improved * Low phosphorus on replacement * Aspiration pneumonia-PEG tube feeds per dietitian keep HOB elevation/aspiration precaution * Atrial fibrillation rate controlled. On amiodarone/check digoxin level On Coumadin * History of ataxia/Parkinson's and recurrent fall. Continue physical therapy, maintain fall risk * Anxiety disorder continue citalopram * Anticoagulation on Coumadin * Hypothyroidism continue thyroxine * History of Parkinson's disease continue levodopa carbidopa * Neuropathy continue gabapentin * Orthostatic hypotension secondary to autonomic dysfunction continue midodrine * Hyperlipidemia continue statin * Dysphagia status post PEG tube placement on PEG tube feeds per dietitian PLAN * Transfer to medical floor if able to wean off Levophed * Wean vasopressors * PEG tube feeds per dietitian * Replace phosphorus * Continue aspiration precaution * Wean oxygen as tolerated * Pre-existing medical condition management Home medications * Daily physical therapy * Coumadin management Status: Acute Qualifiers: Encounter type: initial encounter Fracture type: closed Laterality: right Qualified Code(s): S72.001A - Fracture of unspecified part of neck of right femur, initial encounter for closed fracture Time Spent With Patient Time: Critical care time Total time spent with greater than 50% in coordination of care (as documented) at patient's floor/unit and/or counseling patient:: Greater than 35 minutes QUALITY VTE Deep Vein Thrombosis/Pulmonary Embolism Present on Admission: No
[2021-09-09] MEDS ORDERED: WARFARIN 5 MG TABLET PO ONE (14:00)
[2021-09-09] MEDS ORDERED: NOREPINEPHRINE BITARTRATE 8 MG in 0.9 % SODIUM CHLORIDE 242 ML IV PRN (17:15)
[2021-09-09] MEDS: SENNOSIDES/DOCUSATE SODIUM 1 TAB TABLET PO SCH (21:55)
[2021-09-09] MEDS: GABAPENTIN 300 MG CAPSULE PO SCH (21:57)
[2021-09-10] MEDS: 0.9 % SODIUM CHLORIDE 10 ML SYRINGE IV SCH ×3 (05:35→21:33)
[2021-09-10 06:55] LABS: Basophils # (Auto) 0.02 K/mcL (0.00-0.30); Basophils % (Auto) 0.4 % (0.0-2.0); Eosinophils # (Auto) 0.22 K/mcL (0.00-0.70); Eosinophils % (Auto) 4.4 % (0.0-7.0); Hematocrit 25.2 % (40.1-51.0); Hemoglobin 8.6 g/dL (13.7-17.5); Lymphocytes # (Auto) 1.11 K/mcL (1.50-4.80); Lymphocytes % (Auto) 22.3 % (15.5-49.0); Mean Corpuscular HGB Conc 34.1 g/dL (31.0-36.0); Mean Platelet Volume 11.2 fL (7.4-10.4); Monocytes # (Auto) 0.31 K/mcL (0.10-0.90); Monocytes % (Auto) 6.2 % (1.0-12.0); Neutrophils % (Auto) 66.7 % (38.0-78.0); Platelet Count 151 K/mcL (140-440); RBC 2.77 M/mcL (4.63-6.08)
[2021-09-10] MEDS: MIDODRINE 5 MG TABLET PO SCH ×3 (07:25→17:23)
[2021-09-10] MEDS: POTASSIUM CHLORIDE 10 MEQ TABLET PO SCH ×2 (07:25→17:23)
[2021-09-10] MEDS: FLUTICASONE/SALMETEROL 250/50 INHALER #14 INH SCH ×2 (07:26→21:08)
[2021-09-10] MEDS: LEVOTHYROXINE 150 MCG TABLET PO SCH (07:26)
[2021-09-10] MEDS: AMIODARONE HCL 200 MG TABLET PO SCH (07:26)
[2021-09-10 07:34] LABS: ALT/SGPT < 5 U/L (<40); AST/SGOT 16 U/L (<40); Albumin 2.5 gm/dL (3.2-5.2); Albumin/Globulin Ratio 1.1 (1.0-2.3); Alkaline Phosphatase 82 U/L (39-117); Bilirubin,Direct 0.5 mg/dL (<0.3); Bilirubin,Total 0.8 mg/dL (0.1-1.0); Blood Urea Nitrogen 8 mg/dL (8-23); Calcium 7.9 mg/dL (8.6-10.4); Carbon Dioxide 31 mmol/L (22-30); Chloride 100 mmol/L (96-108); Globulin 2.3 gm/dL (2.2-3.7); Glomerular Filtration Rate 98; Glucose 87 mg/dL (70-105); Lactate Dehydrogenase 145 U/L (135-225); Phosphorous 1.6 mg/dL (2.5-4.5); Triglycerides 89 mg/dL (<150)
[2021-09-10] MEDS: morphine 4 MG/ML VIAL IV PRN ×2 (08:31→14:25)
[2021-09-10] MEDS: ENOXAPARIN 30 MG/0.3 ML SYRINGE SQ SCH ×2 (08:31→21:06)
[2021-09-10] MEDS: DIVALPROEX 125 MG CAP.SPRINK PO SCH ×2 (08:32→22:04)
[2021-09-10] MEDS: CARBIDOPA/LEVODOPA 25/100 TABLET PO SCH ×2 (08:32→21:08)
[2021-09-10] MEDS: QUEtiapine 25 MG TABLET PO SCH ×2 (08:32→21:07)
[2021-09-10] MEDS: OLANZapine 5 MG TABLET PO SCH (08:32)
[2021-09-10] MEDS: tiZANidine 4 MG TABLET PO SCH ×3 (08:32→21:08)
[2021-09-10] MEDS: ASPIRIN 81 MG TAB.CHEW PO SCH (08:32)
[2021-09-10] MEDS: CITALOPRAM 20 MG TABLET PO SCH (08:32)
[2021-09-10] MEDS: ATORVASTATIN 10 MG TABLET PO SCH (08:32)
[2021-09-10] MEDS: morphine 15 MG TAB.SR.12H PO SCH ×2 (08:33→21:09)
[2021-09-10] MEDS: CHLORHEXIDINE GLUCONATE 1 ML ORAL.SOL SWABMOUTH SCH ×2 (08:34→21:09)
[2021-09-10 08:37] LABS: INR 5.8 (0.9-1.1); Prothrombin Time 54.6 sec (11.9-14.5)
[2021-09-10] MEDS: DOCUSATE SODIUM 50 MG/5 ML ORAL.SOL PT SCH ×2 (08:38→21:33)
[2021-09-10] MEDS: MULTIVITAMINS,THERAPEUTIC 1 ML ORAL.SOL PT SCH (08:38)
[2021-09-10] MEDS: LACTATED RINGERS 1,000 ML IV SCH (09:37)
--- NOTE | 2021-09-10 11:51 | Internal Med Progress Note ---
SUBJECTIVE Subjective Patient information: Note initiated : 09/10/21 at 11:47 am Service Date, if different from initiated Date: [] Patient: Oh Garcia a 66 y/o M admitted on 09/05/21 for Fall, Rt hip fx. Chief Complaint: [] Interval history: Mr. Garcia is a 66 year old M with a complex past medical history of Parkinson's disease with ataxia, autonomic dysfunction, chronic pain, hypothyroidism, neuropathy, atrial fibrillation on anticoagulation, anxiety disorder who presents to the ER after he fell due to Parkinson related ataxia. Patient denies losing consciousness or seizure episode or thunderclap headache. He further denies chest pain, palpitation but started experiencing right-sided hip and back pain. He was evaluated at [facility]. Imaging consistent with right hip fracture. Dr. Butler admitting orthopedic was consulted and requested transfer to [facility] for operative intervention. Patient was brought in to [facility] ER by ambulance. On arrival stable hemodynamics. Creatinine 1.48, bicarb 31, sodium 134, potassium 3.6, white count 9.7, hemoglobin 14.9 Subsequently hospital service was consulted for admission. At the time of my evaluation patient is alert and oriented. He denies active distress but end orses to right-sided hip pain. He endorses to history as above. Lives with his son who was out working at the time of fall Other than that patient denies sick contacts, fever, chills, diarrhea, dysuria, productive sputum, cough. 09/06-patient seen in postoperative phase. Doing well. Pain good control. On Jevity per tube. Restart home medications. No anxiety/concerns expressed with nursing staff. Stable hemodynamics. 09/07-patient seen in room postop day 1 around 11 AM doing well. Sitting on chair. Eating breakfast. Denies major concerns but feel little fatigued. Responded to rapid response around 1:15 PM. Patient was found to bradycardic in 50s, hypotensive around mid 50s systolic and sats low 70s. Patient was found gurgling. Started on nonrebreather mask/aggressive suctioning/POC stat labs. Crystalloid challenge with resultant improvement blood pressures to 90 systolic. Patient transferred to ICU. Oh said while he was sitting he regurgitated his gastric contents and was unable to spit it out and choked on it. Tube feeds discontinued and PEG tube decompressed. Start chest imaging bibasilar infiltrates suspicious for aspiration. Continue aspiration precaution, DC tube feeds. Keep n.p.o. Close hemodynamic monitoring. Hemoglobin stable 09/08-patient continues to remain hypotensive. Start pressors. Keep n.p.o. due to recurrent aspiration. On 3 to 4 L oxygen. White count 4.2, resume tube feeds per dietitian. Remains critically ill. Postop day 3. Start Coumadin while patient continues on twice daily Lovenox. Await digoxin level. Continue Coumadin. 09/09-patient doing well on Levophed. Systolics, map at goal. Improved renal function. Improved urine output. Still feels weak and unsteady on feet. Wean Levophed. Now on 1 L oxygen. Transition to medical floor later today if able to stay off Levophed for 6 to 8 hours. Case management to coordinate transfer to SNF in the next 48 hours. No overnight fever chills, dietitian to restart tube feeds, INR 1.8. DC Lovenox once therapeutic, digoxin level 1, phosphorus 1.8 on replacement 09/10-patient doing a lot better. Off pressors. Off oxygen. Tolerating tube feeds. No overnight events bleeding fever chills nausea vomiting. Anticipate discharge to SNF in 24 hours. Case management coordinating placement INR 5.8, Coumadin dose titration phosphorus 1.6 on replacement. No additional concerns expressed nursing staff Constitutional Vitals: Vital Signs Temp Pulse Resp BP Pulse Ox 98.2 F 53 L 12 140/78 95 09/10/21 08:06 09/07/21 14:00 09/10/21 08:06 09/10/21 08:06 09/10/21 08:06 Period Temp Pulse Resp BP Sys/Roland Pulse Ox Last 24 Hr 96.9 F-98.3 F 9-18 77-140/41-78 85-99 Intake and Output 09/09/21 09/10/21 09/10/21 21:59 05:59 13:59 Intake Total 3204 085 4614 Output Total 680 500 240 Balance 461 10 959 Weight 72.393 kg alert oriented Nonlabored breathing on room air No lymphedema PEG tube feedings ongoing Intake & Output: Intake & Output 09/09/21 09/10/21 09/10/21 21:59 05:59 13:59 Intake Total 4250 991 8043 Output Total 680 500 240 Balance 461 10 959 Weight 72.393 kg Intake: IV 977 1000 Sodium Chloride 0.9% 250 ml @ 0 20 mls/hr IV .[id number] [facility] Rx#: [id number] Lactated Ringers 1,000 ml @ 75 977 1000 mls/hr IV .[id number] [facility] Rx#: [id number] Levophed 8 mg In Sodium 0 Chloride 0.9% 242 ml @ 10 MCG/ MIN 18.75 mls/hr IV Q14H [facility] Rx #:[id number] Tube Feeding 64 310 99 GI Tube Flush 100 200 100 Output: Urine Catheter Amount 680 500 240 Other: Urine Appearance Clear Clear Uretheral ([place]) Clear Urine Color Dark Yellow Light Azucena Uretheral ([place]) Dark Yellow OBJ DATA Labs CBC & Chem 7: 09/10/21 05:16 09/10/21 05:16 Labs: Abnormal Lab Results 09/10/21 09/10/21 09/10/21 05:16 05:16 05:16 WBC RBC 2.77 L Hgb 8.6 L Hct 25.2 L POC Hct RDW 15.0 H Plt Count MPV 11.2 H Lymph # (Auto) 1.11 L PT 54.6 H INR 5.8 H* Carbon Dioxide 31 H Anion Gap 7.0 L Creatinine Glucose Uric Acid 2.0 L Calcium 7.9 L POC WB Ioniz Calcium Phosphorus 1.6 L Direct Bilirubin 0.5 H Lactate Dehydrogenase Total Protein 4.8 L Albumin 2.5 L Albumin/Globulin Ratio 09/09/21 09/09/21 09/09/21 05:28 05:28 05:28 WBC RBC 2.95 L Hgb 9.1 L Hct 26.4 L POC Hct RDW 14.7 H Plt Count 139 L MPV 11.6 H Lymph # (Auto) 1.19 L PT 22.1 H INR 1.8 H Carbon Dioxide Anion Gap 6.0 L Creatinine 0.6 L Glucose 61 L Uric Acid 2.2 L Calcium 7.9 L POC WB Ioniz Calcium Phosphorus 1.8 L Direct Bilirubin 0.5 H Lactate Dehydrogenase Total Protein 5.0 L Albumin 2.4 L Albumin/Globulin Ratio 0.9 L 09/08/21 09/08/21 09/08/21 05:25 05:25 05:25 WBC 4.2 L RBC 2.82 L Hgb 8.9 L Hct 25.3 L POC Hct RDW 14.7 H Plt Count 120 L MPV 11.9 H Lymph # (Auto) 0.79 L PT 15.3 H INR 1.2 H Carbon Dioxide Anion Gap 6.0 L Creatinine Glucose Uric Acid 2.2 L Calcium 7.9 L POC WB Ioniz Calcium Phosphorus 2.1 L Direct Bilirubin 0.4 H Lactate Dehydrogenase 134 L Total Protein 4.7 L Albumin 2.3 L Albumin/Globulin Ratio 09/07/21 13:25 WBC RBC Hgb Hct POC Hct 32 L RDW Plt Count MPV Lymph # (Auto) PT INR Carbon Dioxide Anion Gap Creatinine Glucose Uric Acid Calcium POC WB Ioniz Calcium 1.11 L Phosphorus Direct Bilirubin Lactate Dehydrogenase Total Protein Albumin Albumin/Globulin Ratio Meds: Medications Acetaminophen (Acetaminophen 325 Mg Tablet) 650 mg PO Q6HP PRN; Protocol PRN Reason: Per Pain Protocol/Fever > 101 Hydrocodone Bitart/Acetaminophen (Hydrocodone/Apap 7.5/325mg Tablet) 0 tab PO Q4HP PRN; Protocol PRN Reason: Per Pain Protocol Last Admin: 09/06/21 15:43 Dose: 1 tab Documented by: Amiodarone HCl (Amiodarone Hcl 200 Mg Tablet) 200 mg PO [facility] Last Admin: 09/10/21 07:26 Dose: 200 mg Documented by: Aspirin (Aspirin 81 Mg Tab.Chew) 81 mg PO DAILY [facility] Last Admin: 09/10/21 08:32 Dose: 81 mg Documented by: Atorvastatin Calcium (Atorvastatin 10 Mg Tablet) 10 mg PO QDAY [facility] Last Admin: 09/10/21 08:32 Dose: 10 mg Documented by: Bisacodyl (Bisacodyl 10 Mg Supp.Rect) 10 mg [place] Q2-3DAYS PRN PRN Reason: Constipation Carbidopa/Levodopa (Carbidopa/Levodopa 25/100 Tablet) 1 tab PO BID [facility] Last Admin: 09/10/21 08:32 Dose: 1 tab Documented by: Chlorhexidine Gluconate (Chlorhexidine Gluconate 1 Ml Oral.Margaret) 15 ml SWABMOUTH BID [facility] Last Admin: 09/10/21 08:34 Dose: 15 ml Documented by: Citalopram Hydrobromide (Citalopram 20 Mg Tablet) 20 mg PO QDAY [facility] Last Admin: 09/10/21 08:32 Dose: 20 mg Documented by: Diazepam (Diazepam 10 Mg Tablet) 10 mg PO DAILYP PRN PRN Reason: Anxiety Divalproex Sodium (Divalproex 125 Mg Cap.Sprink) 1,000 mg PO HS [facility] Last Admin: 09/09/21 21:56 Dose: 1,000 mg Documented by: Divalproex Sodium (Divalproex 125 Mg Cap.Sprink) 500 mg PO DAILY [facility] Last Admin: 09/10/21 08:32 Dose: 500 mg Documented by: Docusate Sodium (Docusate Sodium 50 Mg/5 Ml Oral.Margaret) 100 mg PT BID [facility] Last Admin: 09/10/21 08:38 Dose: 100 mg Documented by: Enoxaparin Sodium (Enoxaparin 30 Mg/0.3 Ml Syringe) 30 mg SQ BID [facility] Last Admin: 09/10/21 08:31 Dose: 30 mg Documented by: Gabapentin (Gabapentin 300 Mg Capsule) 300 mg PO QHS [facility] Last Admin: 09/09/21 21:57 Dose: Not Given Documented by: Potassium Chloride 40 meq/ (Dextrose) 520 mls @ 130 mls/hr IV UD PRN PRN Reason: K+ = or < 3.5 Acetaminophen (Ofirmev) 650 mg in 65 mls @ 130 mls/hr IV Q6HP PRN; Protocol PRN Reason: Per Pain Protocol/Fever > 101 Last Infusion: 09/08/21 02:00 Dose: Infused Documented by: Magnesium Sulfate (Magnesium Sulfate) 2 gm in 50 mls @ 50 mls/hr IV UD PRN PRN Reason: MG = or < 1.7 Lactated Ringer's (Lactated Ringers) 1,000 mls @ 75 mls/hr IV .[id number] [facility] Last Infusion: 09/10/21 09:37 Dose: Infused Documented by: Norepinephrine Bitartrate 8 mg (/ Sodium Chloride) 250 mls @ 18.75 mls/hr IV Q14H PRN; Protocol PRN Reason: TITRATE TO KEEP MAP > 65 Levothyroxine Sodium (Levothyroxine 150 Mcg Tablet) 150 mcg PO QAMAC [facility] Last Admin: 09/10/21 07:26 Dose: 150 mcg Documented by: Magnesium Hydroxide (Magnesium Hydroxide 30 Ml Oral.Susp) 30 ml PO BIDP PRN PRN Reason: Constipation Melatonin (Melatonin 3 Mg Tablet) 3 mg PO HSP PRN PRN Reason: Insomnia Methocarbamol (Methocarbamol 1,000 Mg/10 Ml Vial) 750 mg IV Q6HP PRN PRN Reason: Muscle Spasm Last Admin: 09/09/21 21:56 Dose: 750 mg Documented by: Midodrine (Midodrine 5 Mg Tablet) 10 mg PO TID@0800,1200,1700 [facility] Last Admin: 09/10/21 11:30 Dose: 10 mg Documented by: Morphine Sulfate (Morphine 4 Mg/Ml Vial) 0 mg IV Q1HP PRN; Protocol PRN Reason: Per Pain Protocol Last Admin: 09/10/21 08:31 Dose: 4 mg Documented by: Morphine Sulfate (Morphine 15 Mg Tab.Sr.12h) 60 mg PO BID [facility] Last Admin: 09/10/21 08:33 Dose: Not Given Documented by: Multivitamins (Multivitamins,Therapeutic 1 Ml Oral.Margaret) 5 ml PT DAILY [facility] Last Admin: 09/10/21 08:38 Dose: 5 ml Documented by: Naloxone HCl (Naloxone Hcl 0.4 Mg/Ml Vial) 0.1 mg IV Q2MIN PRN PRN Reason: Opiate Reversal Olanzapine (Olanzapine 5 Mg Tablet) 10 mg PO DAILY [facility] Last Admin: 09/10/21 08:32 Dose: 10 mg Documented by: Ondansetron HCl (Ondansetron 4 Mg/2 Ml Vial) 4 mg IV Q4HP PRN; Protocol PRN Reason: Nausea And Vomiting Ondansetron HCl (Ondansetron 4 Mg Odt Tablet) 4 mg SL Q4HP PRN; Protocol PRN Reason: Nausea And Vomiting Polyethylene Glycol (Polyethylene Glycol 3350 17 Gm Packet) 17 gm PO DAILYP PRN PRN Reason: Constipation Potassium Chloride (Potassium Chloride 10 Meq Tablet) 10 meq PO BIDCC [facility] Last Admin: 09/10/21 07:25 Dose: 10 meq Documented by: Quetiapine Fumarate (Quetiapine 25 Mg Tablet) 50 mg PO BID [facility] Last Admin: 09/10/21 08:32 Dose: 50 mg Documented by: Fluticasone/Salmeterol (Fluticasone/Salmeterol 250/50 Inhaler #14) 1 puff INH BID [facility] Last Admin: 09/10/21 07:26 Dose: Not Given Documented by: Senna/Docusate Sodium (Sennosides/Docusate Sodium 1 Tab Tablet) 1 tab PO HS [facility] Last Admin: 09/09/21 21:55 Dose: 1 tab Documented by: Sodium Biphosphate/Sodium Phosphate (Fleets Adult Enema) 1 dose [place] Q3-4DAYS PRN PRN Reason: Constipation Sodium Chloride (0.9 % Sodium Chloride 10 Ml Syringe) 10 ml IV Q8 [facility] Last Admin: 09/10/21 05:35 Dose: Not Given Documented by: Throat Lozenges (Benzocaine/Menthol 1 Lozenge) 1 lozenge PO PRN PRN PRN Reason: Sore Throat Tizanidine HCl (Tizanidine 4 Mg Tablet) 4 mg PO TID [facility] Last Admin: 09/10/21 08:32 Dose: 4 mg Documented by: Warfarin Sodium (Warfarin Per Pharmacy) 1 order PO UD [facility] Zolpidem Tartrate (Zolpidem 5 Mg Tablet) 10 mg PO HSP PRN PRN Reason: Insomnia A/P Assessment and plan (1) Fracture of hip: Assessment and plan: * Right hip fracture postop day 5. Ongoing PT OT. SNF transfer in a.m. * Shock likely hypovolemic. Patient currently weaned off Levophed. Continue home dose midodrine. Encourage oral fluid. * Acute hypoxic respiratory failure secondary to aspiration pneumonia. Resolved now on room air * Low phosphorus continue replacement * Aspiration pneumonia-PEG tube feeds per dietitian keep HOB elevation/maintain aspiration precaution * Atrial fibrillation rate controlled. On amiodarone/check digoxin level On Coumadin * History of ataxia and recurrent fall. Continue PT, SNF transfer * Anxiety disorder continue citalopram * Anticoagulation on Coumadin * Hypothyroidism continue thyroxine * History of Parkinson's disease continue levodopa carbidopa * Neuropathy continue gabapentin * Orthostatic hypotension secondary to autonomic dysfunction continue midodrine * Hyperlipidemia continue statin * Dysphagia status post PEG tube placement on PEG tube feeds per dietitian PLAN * Continue PT OT/tube feeds per dietitian * Replace phosphorus * maintain aspiration precaution * Pre-existing medical condition management Home medications * Coumadin dose titration Status: Acute Qualifiers: Encounter type: initial encounter Fracture type: closed Laterality: right Qualified Code(s): S72.001A - Fracture of unspecified part of neck of right femur, initial encounter for closed fracture Time Spent With Patient Total time spent with greater than 50% in coordination of care (as documented) at patient's floor/unit and/or counseling patient:: Greater than 35 minutes QUALITY VTE Deep Vein Thrombosis/Pulmonary Embolism Present on Admission: No
[2021-09-10] MEDS: NEUTRA PHOS 1 PACKET PT PRN (15:24)
[2021-09-10] MEDS: HYDROCODONE/APAP 7.5/325MG TABLET PO PRN (21:06)
[2021-09-10] MEDS: SENNOSIDES/DOCUSATE SODIUM 1 TAB TABLET PO SCH (21:08)
[2021-09-10] MEDS: MELATONIN 3 MG TABLET PO PRN (21:08)
[2021-09-10] MEDS: GABAPENTIN 300 MG CAPSULE PO SCH (21:08)
[2021-09-11] MEDS: 0.9 % SODIUM CHLORIDE 10 ML SYRINGE IV SCH ×3 (05:54→22:10)
[2021-09-11] MEDS: MIDODRINE 5 MG TABLET PO SCH ×3 (07:17→16:34)
[2021-09-11] MEDS: AMIODARONE HCL 200 MG TABLET PO SCH (07:17)
[2021-09-11] MEDS: LEVOTHYROXINE 150 MCG TABLET PO SCH (07:17)
[2021-09-11] MEDS: POTASSIUM CHLORIDE 10 MEQ TABLET PO SCH ×2 (07:17→16:35)
[2021-09-11 07:40] LABS: INR 6.7 (0.9-1.1); Prothrombin Time 61.1 sec (11.9-14.5)
[2021-09-11] MEDS: CHLORHEXIDINE GLUCONATE 1 ML ORAL.SOL SWABMOUTH SCH ×2 (08:32→22:09)
[2021-09-11] MEDS: ATORVASTATIN 10 MG TABLET PO SCH (08:34)
[2021-09-11] MEDS: CARBIDOPA/LEVODOPA 25/100 TABLET PO SCH ×2 (08:35→22:08)
[2021-09-11] MEDS: OLANZapine 5 MG TABLET PO SCH (08:35)
[2021-09-11] MEDS: ASPIRIN 81 MG TAB.CHEW PO SCH (08:35)
[2021-09-11] MEDS: CITALOPRAM 20 MG TABLET PO SCH (08:35)
[2021-09-11] MEDS: tiZANidine 4 MG TABLET PO SCH ×3 (08:36→22:09)
[2021-09-11] MEDS: QUEtiapine 25 MG TABLET PO SCH ×2 (08:36→22:09)
[2021-09-11] MEDS: DIVALPROEX 125 MG CAP.SPRINK PO SCH ×2 (08:37→22:07)
[2021-09-11] MEDS: MULTIVITAMINS,THERAPEUTIC 1 ML ORAL.SOL PT SCH (08:37)
[2021-09-11] MEDS: DOCUSATE SODIUM 50 MG/5 ML ORAL.SOL PT SCH ×2 (08:37→22:06)
--- NOTE | 2021-09-11 08:43 | Internal Med Progress Note ---
SUBJECTIVE Subjective Patient information: Note initiated : 09/11/21 at 8:38 am Service Date, if different from initiated Date: [] Patient: Oh Garcia a 66 y/o M admitted on 09/05/21 for Fall, Rt hip fx. Chief Complaint: [] Interval history: Mr. Garcia is a 66 year old M with a complex past medical history of Parkinson's disease with ataxia, autonomic dysfunction, chronic pain, hypothyroidism, neuropathy, atrial fibrillation on anticoagulation, anxiety disorder who presents to the ER after he fell due to Parkinson related ataxia. Patient denies losing consciousness or seizure episode or thunderclap headache. He further denies chest pain, palpitation but started experiencing right-sided hip and back pain. He was evaluated at [facility]. Imaging consistent with right hip fracture. Dr. Butler admitting orthopedic was consulted and requested transfer to [facility] for operative intervention. Patient was brought in to [facility] ER by ambulance. On arrival stable hemodynamics. Creatinine 1.48, bicarb 31, sodium 134, potassium 3.6, white count 9.7, hemoglobin 14.9 Subsequently hospital service was consulted for admission. At the time of my evaluation patient is alert and oriented. He denies active distress but endo rses to right-sided hip pain. He endorses to history as above. Lives with his son who was out working at the time of fall Other than that patient denies sick contacts, fever, chills, diarrhea, dysuria, productive sputum, cough. 09/06-patient seen in postoperative phase. Doing well. Pain good control. On Jevity per tube. Restart home medications. No anxiety/concerns expressed with nursing staff. Stable hemodynamics. 09/07-patient seen in room postop day 1 around 11 AM doing well. Sitting on chair. Eating breakfast. Denies major concerns but feel little fatigued. Responded to rapid response around 1:15 PM. Patient was found to bradycardic in 50s, hypotensive around mid 50s systolic and sats low 70s. Patient was found gurgling. Started on nonrebreather mask/aggressive suctioning/POC stat labs. Crystalloid challenge with resultant improvement blood pressures to 90 systolic. Patient transferred to ICU. Oh said while he was sitting he regurgitated his gastric contents and was unable to spit it out and choked on it. Tube feeds discontinued and PEG tube decompressed. Start chest imaging bibasilar infiltrates suspicious for aspiration. Continue aspiration precaution, DC tube feeds. Keep n.p.o. Close hemodynamic monitoring. Hemoglobin stable 09/08-patient continues to remain hypotensive. Start pressors. Keep n.p.o. due to recurrent aspiration. On 3 to 4 L oxygen. White count 4.2, resume tube feeds per dietitian. Remains critically ill. Postop day 3. Start Coumadin while patient continues on twice daily Lovenox. Await digoxin level. Continue Coumadin. 09/09-patient doing well on Levophed. Systolics, map at goal. Improved renal function. Improved urine output. Still feels weak and unsteady on feet. Wean Levophed. Now on 1 L oxygen. Transition to medical floor later today if able to stay off Levophed for 6 to 8 hours. Case management to coordinate transfer to SNF in the next 48 hours. No overnight fever chills, dietitian to restart tube feeds, INR 1.8. DC Lovenox once therapeutic, digoxin level 1, phosphorus 1.8 on replacement 09/10-patient doing a lot better. Off pressors. Off oxygen. Tolerating tube feeds. No overnight events bleeding fever chills nausea vomiting. Anticipate discharge to SNF in 24 hours. Case management coordinating placement INR 5.8, Coumadin dose titration phosphorus 1.6 on replacement. No additional concerns expressed nursing staff 09/11-patient doing well. Currently at baseline. Systolics remains around 80 which is usual baseline currently on midodrine, asymptomatic, able to partici fields physical therapy after brief rest during transition to supine to sitting position to accommodate for orthostatic hypotension. Stable labs and hemodynamics. Hemoglobin 8.6, INR 6.7, Coumadin dosing based on INR, phosphorus 1.6 on replacement, ongoing tube feeds. May transition to oral pured diet with aspiration precautions and all been sitting upright on chair at 90 degree. Will likely transition to SNF on Tuesday. Constitutional Vitals: Vital Signs Temp Pulse Resp BP Pulse Ox 98.3 F 51 L 12 86/51 96 09/11/21 03:54 09/11/21 03:54 09/11/21 03:54 09/11/21 03:54 09/11/21 03:54 Period Temp Pulse Resp BP Sys/Roland Pulse Ox Last 24 Hr 97.7 F-98.3 F 49-51 12-18 75-131/48-73 92-100 Intake and Output 09/10/21 09/11/21 09/11/21 21:59 05:59 13:59 Intake Total 655 1175 752 Output Total 975 500 Balance -320 675 752 Weight 77.474 kg alert oriented Nonlabored breathing currently on room air PEG tube feeding ongoing No lymphedema Intake & Output: Intake & Output 09/10/21 09/11/21 09/11/21 21:59 05:59 13:59 Intake Total 655 1175 752 Output Total 975 500 Balance -320 675 752 Weight 77.474 kg Intake: Oral 0 Tube Feeding 215 1125 702 GI Tube Flush 440 50 50 Output: Urine Catheter Amount 975 500 Other: Urine Appearance Clear Uretheral (Gordillo) Clear Urine Color Bright Yellow Uretheral (G[place]illo) Bright Yellow Stool Size Smear Stool Color Brown Stool Consistency Soft OBJ DATA Labs CBC & Chem 7: 09/10/21 05:16 09/10/21 05:16 Labs: Abnormal Lab Results 09/11/21 09/10/21 09/10/21 04:57 05:16 05:16 WBC RBC Hgb Hct RDW Plt Count MPV Lymph # (Auto) PT 61.1 H 54.6 H INR 6.7 H* 5.8 H* Carbon Dioxide 31 H Anion Gap 7.0 L Creatinine Glucose Uric Acid 2.0 L Calcium 7.9 L Phosphorus 1.6 L Direct Bilirubin 0.5 H Lactate Dehydrogenase Total Protein 4.8 L Albumin 2.5 L Albumin/Globulin Ratio 09/10/21 09/09/21 09/09/21 05:16 05:28 05:28 WBC RBC 2.77 L Hgb 8.6 L Hct 25.2 L RDW 15.0 H Plt Count MPV 11.2 H Lymph # (Auto) 1.11 L PT 22.1 H INR 1.8 H Carbon Dioxide Anion Gap 6.0 L Creatinine 0.6 L Glucose 61 L Uric Acid 2.2 L Calcium 7.9 L Phosphorus 1.8 L Direct Bilirubin 0.5 H Lactate Dehydrogenase Total Protein 5.0 L Albumin 2.4 L Albumin/Globulin Ratio 0.9 L 09/09/21 09/08/21 09/08/21 05:28 05:25 05:25 WBC RBC 2.95 L Hgb 9.1 L Hct 26.4 L RDW 14.7 H Plt Count 139 L MPV 11.6 H Lymph # (Auto) 1.19 L PT 15.3 H INR 1.2 H Carbon Dioxide Anion Gap 6.0 L Creatinine Glucose Uric Acid 2.2 L Calcium 7.9 L Phosphorus 2.1 L Direct Bilirubin 0.4 H Lactate Dehydrogenase 134 L Total Protein 4.7 L Albumin 2.3 L Albumin/Globulin Ratio 09/08/21 05:25 WBC 4.2 L RBC Hgb Hct RDW Plt Count MPV Lymph # (Auto) PT INR Carbon Dioxide Anion Gap Creatinine Glucose Uric Acid Calcium Phosphorus Direct Bilirubin Lactate Dehydrogenase Total Protein Albumin Albumin/Globulin Ratio Meds: Medications Acetaminophen (Acetaminophen 325 Mg Tablet) 650 mg PO Q6HP PRN; Protocol PRN Reason: Per Pain Protocol/Fever > 101 Hydrocodone Bitart/Acetaminophen (Hydrocodone/Apap 7.5/325mg Tablet) 0 tab PO Q4HP PRN; Protocol PRN Reason: Per Pain Protocol Last Admin: 09/10/21 21:06 Dose: 2 tab Documented by: Amiodarone HCl (Amiodarone Hcl 200 Mg Tablet) 200 mg PO [facility] Last Admin: 09/11/21 07:17 Dose: 200 mg Documented by: Aspirin (Aspirin 81 Mg Tab.Chew) 81 mg PO DAILY [facility] Last Admin: 09/10/21 08:32 Dose: 81 mg Documented by: Atorvastatin Calcium (Atorvastatin 10 Mg Tablet) 10 mg PO QDAY [facility] Last Admin: 09/10/21 08:32 Dose: 10 mg Documented by: Bisacodyl (Bisacodyl 10 Mg Supp.Rect) 10 mg MA Q2-3DAYS PRN PRN Reason: Constipation Carbidopa/Levodopa (Carbidopa/Levodopa 25/100 Tablet) 1 tab PO BID [facility] Last Admin: 09/10/21 21:08 Dose: 1 tab Documented by: Chlorhexidine Gluconate (Chlorhexidine Gluconate 1 Ml Oral.Margaret) 15 ml SWABMOUTH BID [facility] Last Admin: 09/10/21 21:09 Dose: 15 ml Documented by: Citalopram Hydrobromide (Citalopram 20 Mg Tablet) 20 mg PO QDAY [facility] Last Admin: 09/10/21 08:32 Dose: 20 mg Documented by: Diazepam (Diazepam 10 Mg Tablet) 10 mg PO DAILYP PRN PRN Reason: Anxiety Divalproex Sodium (Divalproex 125 Mg Cap.Sprink) 1,000 mg PO HS [facility] Last Admin: 09/10/21 22:04 Dose: 1,000 mg Documented by: Divalproex Sodium (Divalproex 125 Mg Cap.Sprink) 500 mg PO DAILY [facility] Last Admin: 09/10/21 08:32 Dose: 500 mg Documented by: Docusate Sodium (Docusate Sodium 50 Mg/5 Ml Oral.Margaret) 100 mg PT BID [facility] Last Admin: 09/10/21 21:33 Dose: 100 mg Documented by: Gabapentin (Gabapentin 300 Mg Capsule) 300 mg PO QHS [facility] Last Admin: 09/10/21 21:08 Dose: 300 mg Documented by: Potassium Chloride 40 meq/ (Dextrose) 520 mls @ 130 mls/hr IV UD PRN PRN Reason: K+ = or < 3.5 Acetaminophen (Ofirmev) 650 mg in 65 mls @ 130 mls/hr IV Q6HP PRN; Protocol PRN Reason: Per Pain Protocol/Fever > 101 Last Infusion: 09/08/21 02:00 Dose: Infused Documented by: Magnesium Sulfate (Magnesium Sulfate) 2 gm in 50 mls @ 50 mls/hr IV UD PRN PRN Reason: MG = or < 1.7 Norepinephrine Bitartrate 8 mg (/ Sodium Chloride) 250 mls @ 18.75 mls/hr IV Q14H PRN; Protocol PRN Reason: TITRATE TO KEEP MAP > 65 Levothyroxine Sodium (Levothyroxine 150 Mcg Tablet) 150 mcg PO QAMAC [facility] Last Admin: 09/11/21 07:17 Dose: 150 mcg Documented by: Magnesium Hydroxide (Magnesium Hydroxide 30 Ml Oral.Susp) 30 ml PO BIDP PRN PRN Reason: Constipation Melatonin (Melatonin 3 Mg Tablet) 3 mg PO HSP PRN PRN Reason: Insomnia Last Admin: 09/10/21 21:08 Dose: 3 mg Documented by: Methocarbamol (Methocarbamol 1,000 Mg/10 Ml Vial) 750 mg IV Q6HP PRN PRN Reason: Muscle Spasm Last Admin: 09/09/21 21:56 Dose: 750 mg Documented by: Midodrine (Midodrine 5 Mg Tablet) 10 mg PO TID@0800,1200,1700 [facility] Last Admin: 09/11/21 07:17 Dose: 10 mg Documented by: Morphine Sulfate (Morphine 4 Mg/Ml Vial) 0 mg IV Q1HP PRN; Protocol PRN Reason: Per Pain Protocol Last Admin: 09/10/21 14:25 Dose: 4 mg Documented by: Morphine Sulfate (Morphine 15 Mg Tab.Sr.12h) 60 mg PO BID [facility] Last Admin: 09/10/21 21:09 Dose: Not Given Documented by: Multivitamins (Multivitamins,Therapeutic 1 Ml Oral.Margaret) 5 ml PT DAILY [facility] Last Admin: 09/10/21 08:38 Dose: 5 ml Documented by: Naloxone HCl (Naloxone Hcl 0.4 Mg/Ml Vial) 0.1 mg IV Q2MIN PRN PRN Reason: Opiate Reversal Olanzapine (Olanzapine 5 Mg Tablet) 10 mg PO DAILY [facility] Last Admin: 09/10/21 08:32 Dose: 10 mg Documented by: Ondansetron HCl (Ondansetron 4 Mg/2 Ml Vial) 4 mg IV Q4HP PRN; Protocol PRN Reason: Nausea And Vomiting Ondansetron HCl (Ondansetron 4 Mg Odt Tablet) 4 mg SL Q4HP PRN; Protocol PRN Reason: Nausea And Vomiting Polyethylene Glycol (Polyethylene Glycol 3350 17 Gm Packet) 17 gm PO DAILYP PRN PRN Reason: Constipation Potassium Chloride (Potassium Chloride 10 Meq Tablet) [facility] Last Admin: 09/11/21 07:17 Dose: 10 meq Documented by: Potassium/Phosphorus/Sodium (Neutra Phos 1 Packet) 2 packet PT ONCE PRN PRN Reason: For phosphorus less than 2.5 Last Admin: 09/10/21 15:24 Dose: 2 packet Documented by: Quetiapine Fumarate (Quetiapine 25 Mg Tablet) 50 mg PO BID [facility] Last Admin: 09/10/21 21:07 Dose: 50 mg Documented by: Fluticasone/Salmeterol (Fluticasone/Salmeterol 250/50 Inhaler #14) 1 puff INH BID [facility] Last Admin: 09/10/21 21:08 Dose: Not Given Documented by: Senna/Docusate Sodium (Sennosides/Docusate Sodium 1 Tab Tablet) 1 tab PO HS [facility] Last Admin: 09/10/21 21:08 Dose: 1 tab Documented by: Sodium Biphosphate/Sodium Phosphate (Fleets Adult Enema) 1 dose MA Q3-4DAYS PRN PRN Reason: Constipation Sodium Chloride (0.9 % Sodium Chloride 10 Ml Syringe) 10 ml IV Q8 [facility] Last Admin: 09/11/21 05:54 Dose: 10 ml Documented by: Throat Lozenges (Benzocaine/Menthol 1 Lozenge) 1 lozenge PO PRN PRN PRN Reason: Sore Throat Tizanidine HCl (Tizanidine 4 Mg Tablet) 4 mg PO TID [facility] Last Admin: 09/10/21 21:08 Dose: 4 mg Documented by: Warfarin Sodium (Warfarin Per Pharmacy) 1 order PO UD [facility] Zolpidem Tartrate (Zolpidem 5 Mg Tablet) 10 mg PO HSP PRN PRN Reason: Insomnia A/P Assessment and plan (1) Fracture of hip: Assessment and plan: * Right hip fracture postop day 6. Ongoing PT OT. SNF transfer coordination per case management * Shock likely hypovolemic. Clinically resolved. Off Levophed. Currently systolics at usual baseline around 80s On midodrine for orthostatic hypotension. * Acute hypoxic respiratory failure secondary to aspiration pneumonia. Now on room air * Low phosphorus ongoing replacement * Aspiration pneumonia-PEG tube feeds per dietitian keep HOB elevation/maintain aspiration precaution, all been sitting upright on chair. Pured diet per ST recommendations * Atrial fibrillation rate controlled. On amiodarone, on Coumadin. Digoxin on hold due to bradycardia * History of ataxia and recurrent fall. Ongoing therapies, await SNF transfer for continued posthospitalization rehab * Anxiety disorder continue citalopram * Anticoagulation on Coumadin, dosing based on INR * Hypothyroidism continue thyroxine * History of Parkinson's disease continue levodopa carbidopa * Neuropathy continue gabapentin * Orthostatic hypotension secondary to autonomic dysfunction continue midodrine * Hyperlipidemia continue statin * Dysphagia status post PEG tube placement on PEG tube feeds per dietitian PLAN * Continue PT OT/tube feeds per dietitian * Oral Pured diet per ST recommendations, all meals sitting upright on chair to minimize risk of aspiration * Replace electrolytes as indicated * Pre-existing medical issues management on home medications * Coumadin dosing * Await SNF transfer coordination per case management likely Tuesday Status: Acute Qualifiers: Encounter type: initial encounter Fracture type: closed Laterality: right Qualified Code(s): S72.001A - Fracture of unspecified part of neck of right femur, initial encounter for closed fracture Time Spent With Patient Time: Total time spent is greater than 50% in coordination of care (as documented) at patient's floor/unit and/or counseling patient: QUALITY VTE Deep Vein Thrombosis/Pulmonary Embolism Present on Admission: No
[2021-09-11] MEDS: FLUTICASONE/SALMETEROL 250/50 INHALER #14 INH SCH ×2 (09:01→22:06)
[2021-09-11] MEDS: morphine 15 MG TAB.SR.12H PO SCH (09:02)
[2021-09-11] MEDS: METHOCARBAMOL 1,000 MG/10 ML VIAL IV PRN ×2 (11:16→19:02)
[2021-09-11] MEDS: HYDROCODONE/APAP 7.5/325MG TABLET PO PRN ×2 (13:19→22:08)
[2021-09-11] MEDS: GABAPENTIN 300 MG CAPSULE PO SCH (22:07)
[2021-09-11] MEDS: SENNOSIDES/DOCUSATE SODIUM 1 TAB TABLET PO SCH (22:08)
[2021-09-11] MEDS: MELATONIN 3 MG TABLET PO PRN (22:09)
[2021-09-12] MEDS: METHOCARBAMOL 1,000 MG/10 ML VIAL IV PRN ×2 (00:41→17:31)
[2021-09-12] MEDS: HYDROCODONE/APAP 7.5/325MG TABLET PO PRN ×4 (02:06→19:18)
[2021-09-12] MEDS: 0.9 % SODIUM CHLORIDE 10 ML SYRINGE IV SCH ×5 (05:04→22:10)
[2021-09-12 06:52] LABS: Basophils # (Auto) 0.02 K/mcL (0.00-0.30); Basophils % (Auto) 0.4 % (0.0-2.0); Eosinophils # (Auto) 0.27 K/mcL (0.00-0.70); Eosinophils % (Auto) 4.7 % (0.0-7.0); Hematocrit 25.7 % (40.1-51.0); Hemoglobin 8.7 g/dL (13.7-17.5); Lymphocytes # (Auto) 1.72 K/mcL (1.50-4.80); Lymphocytes % (Auto) 30.1 % (15.5-49.0); Mean Cell Volume 88.9 fL (80.0-100.0); Mean Corpuscular HGB Conc 33.9 g/dL (31.0-36.0); Mean Platelet Volume 11.5 fL (7.4-10.4); Monocytes # (Auto) 0.53 K/mcL (0.10-0.90); Monocytes % (Auto) 9.3 % (1.0-12.0); Neutrophils % (Auto) 55.5 % (38.0-78.0); Platelet Count 167 K/mcL (140-440); RBC 2.89 M/mcL (4.63-6.08); Red Cell Distribution Width 15.2 % (11.5-14.5); WBC 5.7 K/mcL (4.5-11.0)
[2021-09-12] MEDS: MIDODRINE 5 MG TABLET PO SCH ×3 (07:02→17:12)
[2021-09-12] MEDS: AMIODARONE HCL 200 MG TABLET PO SCH (07:03)
[2021-09-12] MEDS: POTASSIUM CHLORIDE 10 MEQ TABLET PO SCH ×2 (07:03→17:12)
[2021-09-12] MEDS: LEVOTHYROXINE 150 MCG TABLET PO SCH (07:03)
[2021-09-12 07:14] LABS: ALT/SGPT 5 U/L (<40); AST/SGOT 21 U/L (<40); Albumin 2.5 gm/dL (3.2-5.2); Alkaline Phosphatase 83 U/L (39-117); Bilirubin,Total 0.7 mg/dL (0.1-1.0); Blood Urea Nitrogen 6 mg/dL (8-23); Calcium 8.2 mg/dL (8.6-10.4); Carbon Dioxide 30 mmol/L (22-30); Chloride 103 mmol/L (96-108); Globulin 2.5 gm/dL (2.2-3.7); Glomerular Filtration Rate 98; Glucose 91 mg/dL (70-105)
[2021-09-12 07:48] LABS: INR 6.3 (0.9-1.1); Prothrombin Time 58.6 sec (11.9-14.5)
[2021-09-12] MEDS: CHLORHEXIDINE GLUCONATE 1 ML ORAL.SOL SWABMOUTH SCH ×2 (08:20→21:11)
[2021-09-12] MEDS: ASPIRIN 81 MG TAB.CHEW PO SCH (08:21)
[2021-09-12] MEDS: QUEtiapine 25 MG TABLET PO SCH ×2 (08:21→21:11)
[2021-09-12] MEDS: CITALOPRAM 20 MG TABLET PO SCH (08:22)
[2021-09-12] MEDS: CARBIDOPA/LEVODOPA 25/100 TABLET PO SCH ×2 (08:22→21:11)
[2021-09-12] MEDS: OLANZapine 5 MG TABLET PO SCH (08:22)
[2021-09-12] MEDS: tiZANidine 4 MG TABLET PO SCH ×3 (08:23→21:11)
[2021-09-12] MEDS: ATORVASTATIN 10 MG TABLET PO SCH (08:23)
[2021-09-12] MEDS: DIVALPROEX 125 MG CAP.SPRINK PO SCH ×2 (08:23→21:12)
[2021-09-12] MEDS: MULTIVITAMINS,THERAPEUTIC 1 ML ORAL.SOL PT SCH (08:23)
[2021-09-12] MEDS: DOCUSATE SODIUM 50 MG/5 ML ORAL.SOL PT SCH ×2 (08:24→21:35)
[2021-09-12] MEDS: FLUTICASONE/SALMETEROL 250/50 INHALER #14 INH SCH ×2 (08:24→21:13)
[2021-09-12] MEDS ORDERED: IPRATROPIUM/ALBUTEROL 3 ML AMPUL.NEB NEB PRN (10:48)
--- NOTE | 2021-09-12 10:48 | Internal Med Progress Note ---
SUBJECTIVE Subjective Patient information: Note initiated : 09/12/21 at 10:33 am Service Date, if different from initiated Date: [] Patient: Oh Garcia a 66 y/o M admitted on 09/05/21 for Fall, Rt hip fx. Chief Complaint: [Right hip fracture] Interval history: Interval history: Mr. Garcia is a 66 year old M with a complex past medical history of Parkinson's disease with ataxia, autonomic dysfunction, chronic pain, hypothyroidism, neuropathy, atrial fibrillation on anticoagulation, anxiety disorder who presents to the ER after he fell due to Parkinson related ataxia. Patient denies losing consciousness or seizure episode or thunderclap headache. He further denies chest pain, palpitation but started experiencing right-sided hip and back pain. He was evaluated at [facility]. Imaging consistent with right hip fracture. Dr. Butler admitting orthopedic was consulted and requested transfer to [facility] for operative intervention. Patient was brought in to [facility] ER by ambulance. On arrival stable hemodynamics. Creatinine 1.48, bicarb 31, sodium 134, potassium 3.6, white count 9.7, hemoglobin 14.9 Subsequently hospital service was consulted for admission. At the time of my evaluation patient is alert and oriented. He denies active distress but endorses to right-sided hip pain. He endorses to history as above. Lives with his son who was out working at the time of fall Other than that patient denies sick contacts, fever, chills, diarrhea, dysuria, productive sputum, cough. 09/06-patient seen in postoperative phase. Doing well. Pain good control. On Jevity per tube. Restart home medications. No anxiety/concerns expressed with nursing staff. Stable hemodynamics. 09/07-patient seen in room postop day 1 around 11 AM doing well. Sitting on chair. Eating breakfast. Denies major concerns but feel little fatigued. Responded to rapid response around 1:15 PM. Patient was found to bradycardic in 50s, hypotensive around mid 50s systolic and sats low 70s. Patient was found gurgling. Started on nonrebreather mask/aggressive suctioning/POC stat labs. Crystalloid challenge with resultant improvement blood pressures to 90 systolic. Patient transferred to ICU. Oh said while he was sitting he regurgitated his gastric contents and was unable to spit it out and choked on it. Tube feeds discontinued and PEG tube decompressed. Start chest imaging bibasilar infiltrates suspicious for aspiration. Continue aspiration precaution, DC tube feeds. Keep n.p.o. Close hemodynamic monitoring. Hemoglobin stable 09/08-patient continues to remain hypotensive. Start pressors. Keep n.p.o. due to recurrent aspiration. On 3 to 4 L oxygen. White count 4.2, resume tube feeds per dietitian. Remains critically ill. Postop day 3. Start Coumadin while patient continues on twice daily Lovenox. Await digoxin level. Continue Coumadin. 09/09-patient doing well on Levophed. Systolics, map at goal. Improved renal function. Improved urine output. Still feels weak and unsteady on feet. Wean Levophed. Now on 1 L oxygen. Transition to medical floor later today if able to stay off Levophed for 6 to 8 hours. Case management to coordinate transfer to SNF in the next 48 hours. No overnight fever chills, dietitian to restart tube feeds, INR 1.8. DC Lovenox once therapeutic, digoxin level 1, phosphorus 1.8 on replacement 09/10-patient doing a lot better. Off pressors. Off oxygen. Tolerating tube feeds. No overnight events bleeding fever chills nausea vomiting. Anticipate discharge to SNF in 24 hours. Case management coordinating placement INR 5.8, Coumadin dose titration phosphorus 1.6 on replacement. No additional concerns expressed nursing staff 09/11-patient doing well. Currently at baseline. Systolics remains around 80 which is usual baseline currently on midodrine, asymptomatic, able to participate physical therapy after brief rest during transition to supine to sitting position to accommodate for orthostatic hypotension. Stable labs and hemodynamics. Hemoglobin 8.6, INR 6.7, Coumadin dosing based on INR, phosphorus 1.6 on replacement, ongoing tube feeds. May transition to oral pured diet with aspiration precautions and all been sitting upright on chair at 90 degree. Will likely transition to SNF on Tuesday. 09/12: Afebrile overnight. Bradycardia HR in the 40-50s bpm. Soft blood pressure with BP as low as 80s/50s mmHg. No other major overnight events. Still on PEG tube feeding. Denies any pain or discomfort. Constitutional Vitals: Vital Signs Temp Pulse Resp BP Pulse Ox 36.9 C 49 L 16 104/65 93 09/12/21 05:13 09/12/21 05:13 09/12/21 05:13 09/12/21 07:01 09/12/21 07:19 Period Temp Pulse Resp BP Sys/Roland Pulse Ox Last 24 Hr 36.3 C-37.1 C 49-59 16-20 81-116/51-73 91-100 Intake and Output 09/11/21 09/12/21 09/12/21 21:59 05:59 13:59 Intake Total 817 630 901 Output Total 1100 Balance 817 -470 901 Weight 79.197 kg Intake & Output: Intake & Output 09/11/21 09/12/21 09/12/21 21:59 05:59 13:59 Intake Total 817 630 901 Output Total 1100 Balance 817 -470 901 Weight 79.197 kg Intake: Oral 480 Tube Feeding 237 630 751 GI Tube Flush 100 150 Output: Urine Catheter Amount 1100 Other: Urine Appearance Clear Uretheral (Gordillo) Clear Urine Color Dark Yellow Uretheral (Gordillo) Dark Yellow Stool Size Smear Stool Color Brown Stool Consistency Soft # Bowel Movements 0 1 # of times incontinent of 1 Bowels General appearance: cooperative and disheveled Exam: lethargic Head Head exam: Present atraumatic and normal inspection Eye Eye exam: Present normal appearance ENT ENT exam: Present mucous membranes moist, normal exam and normal external ear exam Neck Neck exam: Present normal inspection Respiratory Respiratory exam: Present normal respiratory exam Cardiovascular Cardiovascular exam: Present bradycardia and irregular rhythm GI/Abdominal GI/Abdominal exam: Present normal bowel sounds Additional comments: PEG tube in place Additional comments: Gordillo catheter in place Extremities Exam Extremities exam: Present full ROM and tenderness; Absent normal inspection Additional comments: Right hip covered by surgical dressing Back Exam Back exam: Present normal inspection Neurological Exam Neurological exam: Present alert and oriented X3 Skin Skin exam: Present intact and warm OBJ DATA Labs CBC & Chem 7: 09/12/21 05:13 09/12/21 05:13 Labs: Abnormal Lab Results 09/12/21 09/12/21 09/12/21 05:13 05:13 04:56 RBC 2.89 L Hgb 8.7 L Hct 25.7 L RDW 15.2 H MPV 11.5 H Lymph # (Auto) PT 58.6 H INR 6.3 H* Carbon Dioxide Anion Gap 7.0 L BUN 6 L Uric Acid Calcium 8.2 L Phosphorus Direct Bilirubin Total Protein 5.0 L Albumin 2.5 L 09/11/21 09/10/21 09/10/21 04:57 05:16 05:16 RBC Hgb Hct RDW MPV Lymph # (Auto) PT 61.1 H 54.6 H INR 6.7 H* 5.8 H* Carbon Dioxide 31 H Anion Gap 7.0 L BUN Uric Acid 2.0 L Calcium 7.9 L Phosphorus 1.6 L Direct Bilirubin 0.5 H Total Protein 4.8 L Albumin 2.5 L 09/10/21 05:16 RBC 2.77 L Hgb 8.6 L Hct 25.2 L RDW 15.0 H MPV 11.2 H Lymph # (Auto) 1.11 L PT INR Carbon Dioxide Anion Gap BUN Uric Acid Calcium Phosphorus Direct Bilirubin Total Protein Albumin Meds: Medications Acetaminophen (Acetaminophen 325 Mg Tablet) 650 mg PO Q6HP PRN; Protocol PRN Reason: Per Pain Protocol/Fever > 101 Hydrocodone Bitart/Acetaminophen (Hydrocodone/Apap 7.5/325mg Tablet) 0 tab PO Q4HP PRN; Protocol PRN Reason: Per Pain Protocol Last Admin: 09/12/21 07:02 Dose: 2 tab Documented by: Amiodarone HCl (Amiodarone Hcl 200 Mg Tablet) 200 mg PO [facility] Last Admin: 09/12/21 07:03 Dose: 200 mg Documented by: Aspirin (Aspirin 81 Mg Tab.Chew) 81 mg PO DAILY [facility] Last Admin: 09/12/21 08:21 Dose: 81 mg Documented by: Atorvastatin Calcium (Atorvastatin 10 Mg Tablet) 10 mg PO QDAY [facility] Last Admin: 09/12/21 08:23 Dose: 10 mg Documented by: Bisacodyl (Bisacodyl 10 Mg Supp.Rect) 10 mg [place] Q2-3DAYS PRN PRN Reason: Constipation Carbidopa/Levodopa (Carbidopa/Levodopa 25/100 Tablet) 1 tab PO BID [facility] Last Admin: 09/12/21 08:22 Dose: 1 tab Documented by: Chlorhexidine Gluconate (Chlorhexidine Gluconate 1 Ml Oral.Margaret) 15 ml SWABMOUTH BID [facility] Last Admin: 09/12/21 08:20 Dose: 15 ml Documented by: Citalopram Hydrobromide (Citalopram 20 Mg Tablet) 20 mg PO QDAY [facility] Last Admin: 09/12/21 08:22 Dose: 20 mg Documented by: Diazepam (Diazepam 10 Mg Tablet) 10 mg PO DAILYP PRN PRN Reason: Anxiety Divalproex Sodium (Divalproex 125 Mg Cap.Sprink) 1,000 mg PO HS [facility] Last Admin: 09/11/21 22:07 Dose: 1,000 mg Documented by: Divalproex Sodium (Divalproex 125 Mg Cap.Sprink) 500 mg PO DAILY [facility] Last Admin: 09/12/21 08:23 Dose: 500 mg Documented by: Docusate Sodium (Docusate Sodium 50 Mg/5 Ml Oral.Margaret) 100 mg PT BID [facility] Last Admin: 09/12/21 08:24 Dose: Not Given Documented by: Gabapentin (Gabapentin 300 Mg Capsule) 300 mg PO QHS [facility] Last Admin: 09/11/21 22:07 Dose: 300 mg Documented by: Potassium Chloride 40 meq/ (Dextrose) 520 mls @ 130 mls/hr IV UD PRN PRN Reason: K+ = or < 3.5 Acetaminophen (Ofirmev) 650 mg in 65 mls @ 130 mls/hr IV Q6HP PRN; Protocol PRN Reason: Per Pain Protocol/Fever > 101 Last Infusion: 09/08/21 02:00 Dose: Infused Documented by: Magnesium Sulfate (Magnesium Sulfate) 2 gm in 50 mls @ 50 mls/hr IV UD PRN PRN Reason: MG = or < 1.7 Levothyroxine Sodium (Levothyroxine 150 Mcg Tablet) 150 mcg PO QAMAC [facility] Last Admin: 09/12/21 07:03 Dose: 150 mcg Documented by: Magnesium Hydroxide (Magnesium Hydroxide 30 Ml Oral.Susp) 30 ml PO BIDP PRN PRN Reason: Constipation Melatonin (Melatonin 3 Mg Tablet) 3 mg PO HSP PRN PRN Reason: Insomnia Last Admin: 09/11/21 22:09 Dose: 3 mg Documented by: Methocarbamol (Methocarbamol 1,000 Mg/10 Ml Vial) 750 mg IV Q6HP PRN PRN Reason: Muscle Spasm Last Admin: 09/12/21 00:41 Dose: 750 mg Documented by: Midodrine (Midodrine 5 Mg Tablet) 10 mg PO TID@0800,1200,1700 [facility] Last Admin: 09/12/21 07:02 Dose: 10 mg Documented by: Morphine Sulfate (Morphine 4 Mg/Ml Vial) 0 mg IV Q1HP PRN; Protocol PRN Reason: Per Pain Protocol Last Admin: 09/10/21 14:25 Dose: 4 mg Documented by: Multivitamins (Multivitamins,Therapeutic 1 Ml Oral.Margaret) 5 ml PT DAILY [facility] Last Admin: 09/12/21 08:23 Dose: 5 ml Documented by: Naloxone HCl (Naloxone Hcl 0.4 Mg/Ml Vial) 0.1 mg IV Q2MIN PRN PRN Reason: Opiate Reversal Olanzapine (Olanzapine 5 Mg Tablet) 10 mg PO DAILY [facility] Last Admin: 09/12/21 08:22 Dose: 10 mg Documented by: Ondansetron HCl (Ondansetron 4 Mg/2 Ml Vial) 4 mg IV Q4HP PRN; Protocol PRN Reason: Nausea And Vomiting Ondansetron HCl (Ondansetron 4 Mg Odt Tablet) 4 mg SL Q4HP PRN; Protocol PRN Reason: Nausea And Vomiting Polyethylene Glycol (Polyethylene Glycol 3350 17 Gm Packet) 17 gm PO DAILYP PRN PRN Reason: Constipation Potassium Chloride (Potassium Chloride 10 Meq Tablet) [facility] Last Admin: 09/12/21 07:03 Dose: 10 meq Documented by: Potassium/Phosphorus/Sodium (Neutra Phos 1 Packet) 2 packet PT ONCE PRN PRN Reason: For phosphorus less than 2.5 Last Admin: 09/10/21 15:24 Dose: 2 packet Documented by: Quetiapine Fumarate (Quetiapine 25 Mg Tablet) 50 mg PO BID [facility] Last Admin: 09/12/21 08:21 Dose: 50 mg Documented by: Fluticasone/Salmeterol (Fluticasone/Salmeterol 250/50 Inhaler #14) 1 puff INH BID [facility] Last Admin: 09/12/21 08:24 Dose: Not Given Documented by: Senna/Docusate Sodium (Sennosides/Docusate Sodium 1 Tab Tablet) 1 tab PO HS [facility] Last Admin: 09/11/21 22:08 Dose: 1 tab Documented by: Sodium Biphosphate/Sodium Phosphate (Fleets Adult Enema) 1 dose [place] Q3-4DAYS PRN PRN Reason: Constipation Sodium Chloride (0.9 % Sodium Chloride 10 Ml Syringe) 10 ml IV Q8 [facility] Last Admin: 09/12/21 05:04 Dose: 10 ml Documented by: Throat Lozenges (Benzocaine/Menthol 1 Lozenge) 1 lozenge PO PRN PRN PRN Reason: Sore Throat Tizanidine HCl (Tizanidine 4 Mg Tablet) 4 mg PO TID [facility] Last Admin: 09/12/21 08:23 Dose: 4 mg Documented by: Warfarin Sodium (Warfarin Per Pharmacy) 1 order PO UD [facility] Zolpidem Tartrate (Zolpidem 5 Mg Tablet) 10 mg PO HSP PRN PRN Reason: Insomnia A/P Assessment and plan (1) Subtrochanteric fracture of hip: Status: Acute (2) Atrial fibrillation: Status: Acute (3) Chronic anticoagulation: Status: Acute (4) Supratherapeutic INR: Status: Acute (5) Dysphagia: Status: Acute (6) G tube feedings: Status: Acute (7) Anemia, normocytic normochromic: Status: Acute (8) Anxiety disorder: Status: Acute (9) Hypothyroidism: Status: Acute (10) Parkinson disease: Status: Acute (11) COPD (chronic obstructive pulmonary disease): Status: Acute Narrative A/P Narrative: Assessment and Plans: 1. Right hip fracture: S/p ORIF by orthopedic surgeon Dr. Curiel on 09/06 Physical therapy Occupational therapy Pending SNF placement Morphine IV PRN severe pain [place] PRN moderate pain Robaxin PRN muscle spasm 2. Atrial fibrillation: Supratherapeutic INR, today 6.3, goal 2-3 Coumadin dosing with pharmacy assistance Daily INR for Coumadin dosing Amiodarone PRN for rate control Hold Digoxin given bradycardia Cardiac monitoring 3. Hypothyroidism: Continue thyroid replacement therapy 4. Dysphagia: Continue PEG tube feeding Okay to give Pureed diet as tolerated 5. Aspiration pneumonitis: Currently on room air, not on antibiotics Continue to monitor for feeding situations 6. Parkinson's Disease: Sinemet 7. Anemia, normocytic normochromic: Daily cbc w/ auto diff in the morning to trend H/H; transfuse pRBC if hemoglobin <7.0, active bleeding, or symptomatic 8. Anxiety disorder: Citalopram Seroquel Olanzapine Valium PRN anxiety 9. COPD, stable: Advair Diskus DuoNEB NEB PRN wheezing or SOB GI ppx: not currently indicated DVT ppx: SCDs Code status: Full Prognosis: stable Disposition: inpatient med surg telemetry Time Spent With Patient Time: Total time spent is greater than 50% in coordination of care (as documented) at patient's floor/unit and/or counseling patient: Total time spent with greater than 50% in coordination of care (as documented) at patient's floor/unit and/or counseling patient:: Greater than 35 minutes QUALITY VTE Deep Vein Thrombosis/Pulmonary Embolism Present on Admission: No
[2021-09-12] MEDS: NEUTRA PHOS 1 PACKET PT PRN (19:19)
[2021-09-12] MEDS: SENNOSIDES/DOCUSATE SODIUM 1 TAB TABLET PO SCH (21:12)
[2021-09-12] MEDS: GABAPENTIN 300 MG CAPSULE PO SCH (21:12)
[2021-09-12] MEDS ORDERED: 0.9 % SODIUM CHLORIDE 1,000 ML IV ONE (22:13)
[2021-09-13] MEDS: HYDROCODONE/APAP 7.5/325MG TABLET PO PRN ×5 (02:05→21:39)
[2021-09-13] MEDS: 0.9 % SODIUM CHLORIDE 10 ML SYRINGE IV SCH ×4 (05:27→21:41)
[2021-09-13 06:48] LABS: INR 3.6 (0.9-1.1); Prothrombin Time 37.4 sec (11.9-14.5)
[2021-09-13 06:49] LABS: Basophils # (Auto) 0.02 K/mcL (0.00-0.30); Basophils % (Auto) 0.3 % (0.0-2.0); Eosinophils # (Auto) 0.31 K/mcL (0.00-0.70); Eosinophils % (Auto) 5.3 % (0.0-7.0); Hematocrit 25.3 % (40.1-51.0); Hemoglobin 8.7 g/dL (13.7-17.5); Lymphocytes # (Auto) 1.41 K/mcL (1.50-4.80); Lymphocytes % (Auto) 23.9 % (15.5-49.0); Mean Cell Volume 89.1 fL (80.0-100.0); Mean Corpuscular HGB Conc 34.4 g/dL (31.0-36.0); Mean Platelet Volume 10.8 fL (7.4-10.4); Monocytes # (Auto) 0.71 K/mcL (0.10-0.90); Neutrophils % (Auto) 58.5 % (38.0-78.0); Platelet Count 204 K/mcL (140-440); RBC 2.84 M/mcL (4.63-6.08); Red Cell Distribution Width 15.3 % (11.5-14.5); WBC 5.9 K/mcL (4.5-11.0)
[2021-09-13 07:06] LABS: ALT/SGPT 6 U/L (<40); AST/SGOT 23 U/L (<40); Albumin 2.5 gm/dL (3.2-5.2); Alkaline Phosphatase 80 U/L (39-117); Bilirubin,Total 0.7 mg/dL (0.1-1.0); Blood Urea Nitrogen 7 mg/dL (8-23); Calcium 8.1 mg/dL (8.6-10.4); Carbon Dioxide 29 mmol/L (22-30); Chloride 102 mmol/L (96-108); Globulin 2.5 gm/dL (2.2-3.7); Glomerular Filtration Rate 105; Glucose 91 mg/dL (70-105); Phosphorous 2.5 mg/dL (2.5-4.5)
[2021-09-13] MEDS: FLUTICASONE/SALMETEROL 250/50 INHALER #14 INH SCH ×2 (08:31→21:40)
[2021-09-13] MEDS: CHLORHEXIDINE GLUCONATE 1 ML ORAL.SOL SWABMOUTH SCH ×2 (08:41→21:36)
[2021-09-13] MEDS: POTASSIUM CHLORIDE 10 MEQ TABLET PO SCH ×2 (08:42→16:57)
[2021-09-13] MEDS: MIDODRINE 5 MG TABLET PO SCH ×3 (08:42→16:57)
[2021-09-13] MEDS: ATORVASTATIN 10 MG TABLET PO SCH (08:42)
[2021-09-13] MEDS: ASPIRIN 81 MG TAB.CHEW PO SCH (08:42)
[2021-09-13] MEDS: ACETAMINOPHEN 650 MG/65 ML BAG IV PRN (08:42)
[2021-09-13] MEDS: LEVOTHYROXINE 150 MCG TABLET PO SCH (08:42)
[2021-09-13] MEDS: MULTIVITAMINS,THERAPEUTIC 1 ML ORAL.SOL PT SCH (08:45)
[2021-09-13] MEDS: DOCUSATE SODIUM 50 MG/5 ML ORAL.SOL PT SCH ×3 (08:45→21:37)
--- NOTE | 2021-09-13 09:45 | Internal Med Progress Note ---
SUBJECTIVE Subjective Patient information: Note initiated : 09/13/21 at 9:41 am Service Date, if different from initiated Date: [] Patient: Oh Garcia a 66 y/o M admitted on 09/05/21 for Fall, Rt hip fx. Chief Complaint: [] Interval history: Interval history: Mr. Garcia is a 66 year old M with a complex past medical history of Parkinson's disease with ataxia, autonomic dysfunction, chronic pain, hypothyroidism, neuropathy, atrial fibrillation on anticoagulation, anxiety disorder who presents to the ER after he fell due to Parkinson related ataxia. Patient denies losing consciousness or seizure episode or thunderclap headache. He further denies chest pain, palpitation but started experiencing right-sided hip and back pain. He was evaluated at [facility]. Imaging consistent with right hip fracture. Dr. Butler admitting orthopedic was consulted and requested transfer to [facility] for operative intervention. Patient was brought in to [facility] ER by ambulance. On arrival stable hemodynamics. Creatinine 1.48, bicarb 31, sodium 134, potassium 3.6, white count 9.7, hemoglobin 14.9 Subsequently hospital service was consulted for admission. At the time of my evaluation patient is alert and oriented. He denies active distress but endorses to right-sided hip pain. He endorses to history as above. Lives with his son who was out working at the time of fall Other than that patient denies sick contacts, fever, chills, diarrhea, dysuria, productive sputum, cough. 09/06-patient seen in postoperative phase. Doing well. Pain good control. On Jevity per tube. Restart home medications. No anxiety/concerns expressed with nursing staff. Stable hemodynamics. 09/07-patient seen in room postop day 1 around 11 AM doing well. Sitting on chair. Eating breakfast. Denies major concerns but feel little fatigued. Responded to rapid response around 1:15 PM. Patient was found to bradycardic in 50s, hypotensive around mid 50s systolic and sats low 70s. Patient was found gurgling. Started on nonrebreather mask/aggressive suctioning/POC stat labs. Crystalloid challenge with resultant improvement blood pressures to 90 systolic. Patient transferred to ICU. Oh said while he was sitting he regurgitated his gastric contents and was unable to spit it out and choked on it. Tube feeds discontinued and PEG tube decompressed. Start chest imaging bibasilar infiltrates suspicious for aspiration. Continue aspiration precaution, DC tube feeds. Keep n.p.o. Close hemodynamic monitoring. Hemoglobin stable 09/08-patient continues to remain hypotensive. Start pressors. Keep n.p.o. due to recurrent aspiration. On 3 to 4 L oxygen. White count 4.2, resume tube feeds per dietitian. Remains critically ill. Postop day 3. Start Coumadin while patient continues on twice daily Lovenox. Await digoxin level. Continue Coumadin. 09/09-patient doing well on Levophed. Systolics, map at goal. Improved renal function. Improved urine output. Still feels weak and unsteady on feet. Wean Levophed. Now on 1 L oxygen. Transition to medical floor later today if able to stay off Levophed for 6 to 8 hours. Case management to coordinate transfer to SNF in the next 48 hours. No overnight fever chills, dietitian to restart tube feeds, INR 1.8. DC Lovenox once therapeutic, digoxin level 1, phosphorus 1.8 on replacement 09/10-patient doing a lot better. Off pressors. Off oxygen. Tolerating tube f eeds. No overnight events bleeding fever chills nausea vomiting. Anticipate discharge to SNF in 24 hours. Case management coordinating placement INR 5.8, Coumadin dose titration phosphorus 1.6 on replacement. No additional concerns expressed nursing staff 09/11-patient doing well. Currently at baseline. Systolics remains around 80 which is usual baseline currently on midodrine, asymptomatic, able to participate physical therapy after brief rest during transition to supine to sitting position to accommodate for orthostatic hypotension. Stable labs and hemodynamics. Hemoglobin 8.6, INR 6.7, Coumadin dosing based on INR, phosphorus 1.6 on replacement, ongoing tube feeds. May transition to oral pured diet with aspiration precautions and all been sitting upright on chair at 90 degree. Will likely transition to SNF on Tuesday. 09/12: Afebrile overnight. Bradycardia HR in the 40-50s bpm. Soft blood pressure with BP as low as 80s/50s mmHg. No other major overnight events. Still on PEG tube feeding. Denies any pain or discomfort. 09/13: Afebrile overnight. Currently on 1L/min oxygen. INR 3.6 this morning. Soft blood pressure last night, resolved by this morning. 6/10 right lateral hip pain. Denies chest pain or SOB. Denies fever, chills, or sweating. Constitutional Vitals: Vital Signs Temp Pulse Resp BP Pulse Ox 37.3 C H 49 L 16 123/86 93 09/13/21 08:04 09/12/21 05:13 09/13/21 08:04 09/13/21 08:04 09/13/21 08:04 Period Temp Pulse Resp BP Sys/Roland Pulse Ox Last 24 Hr 36.4 C-37.3 C 16-18 77-162/44-89 85-98 Intake and Output 09/12/21 09/13/21 09/13/21 21:59 05:59 13:59 Intake Total 695 1730 192 Output Total 425 2000 600 Balance 270 -270 -408 Weight 76.657 kg Intake & Output: Intake & Output 09/12/21 09/13/21 09/13/21 21:59 05:59 13:59 Intake Total 695 1730 192 Output Total 425 2000 600 Balance 270 -270 -408 Weight 76.657 kg Intake: IV 1000 Sodium Chloride 0.9% 1,000 ml @ 1000 Wide Open IV BOLUS ONE Rx#: [id number] Tube Feeding 435 510 92 GI Tube Flush 260 220 100 Output: Urine Catheter Amount 425 2000 600 Other: Urine Appearance Clear Clear Clear Uretheral (Gordillo) Clear Urine Color Bright Yellow Bright Yellow Bright Yellow Uretheral (Gordillo) Bright Yellow Urine Odor Normal Normal General appearance: cooperative and no acute distress Exam: Masked facies Head Head exam: Present atraumatic and normal inspection Eye Eye exam: Present normal appearance ENT ENT exam: Present mucous membranes moist, normal exam and normal external ear exam Additional comments: Nasal cannula in place Neck Neck exam: Present normal inspection Respiratory Respiratory exam: Present normal respiratory exam Cardiovascular Cardiovascular exam: Present irregular rhythm GI/Abdominal GI/Abdominal exam: Present normal bowel sounds Additional comments: Gordillo catheter in place Extremities Exam Additional comments: Surgical wound dressing in right lateral hip, tenderness to palpation Back Exam Back exam: Present normal inspection Neurological Exam Neurological exam: Present alert and oriented X3 Skin Skin exam: Present intact and warm OBJ DATA Labs CBC & Chem 7: 09/13/21 04:55 09/13/21 04:55 Labs: Abnormal Lab Results 11/09/13/21 09/13/21 04:55 04:55 04:55 RBC 2.84 L Hgb 8.7 L Hct 25.3 L RDW 15.3 H MPV 10.8 H Lymph # (Auto) 1.41 L PT 37.4 H INR 3.6 H Anion Gap 6.0 L BUN 7 L Creatinine 0.6 L Calcium 8.1 L Total Protein 5.0 L Albumin 2.5 L 09/12/21 09/12/21 09/12/21 05:13 05:13 04:56 RBC 2.89 L Hgb 8.7 L Hct 25.7 L RDW 15.2 H MPV 11.5 H Lymph # (Auto) PT 58.6 H INR 6.3 H* Anion Gap 7.0 L BUN 6 L Creatinine Calcium 8.2 L Total Protein 5.0 L Albumin 2.5 L 09/11/21 04:57 RBC Hgb Hct RDW MPV Lymph # (Auto) PT 61.1 H INR 6.7 H* Anion Gap BUN Creatinine Calcium Total Protein Albumin Meds: Medications Acetaminophen (Acetaminophen 325 Mg Tablet) 650 mg PO Q6HP PRN; Protocol PRN Reason: Per Pain Protocol/Fever > 101 Hydrocodone Bitart/Acetaminophen (Hydrocodone/Apap 7.5/325mg Tablet) 0 tab PO Q4HP PRN; Protocol PRN Reason: Per Pain Protocol Last Admin: 09/13/21 02:05 Dose: 1 tab Documented by: Albuterol/Ipratropium (Ipratropium/Albuterol 3 Ml Ampul.Neb) 3 ml NEB Q4HP PRN PRN Reason: Shortness Of Breath Amiodarone HCl (Amiodarone Hcl 200 Mg Tablet) 200 mg PO [facility] Last Admin: 09/12/21 07:03 Dose: 200 mg Documented by: Aspirin (Aspirin 81 Mg Tab.Chew) 81 mg PO DAILY [facility] Last Admin: 09/13/21 08:42 Dose: 81 mg Documented by: Atorvastatin Calcium (Atorvastatin 10 Mg Tablet) 10 mg PO QDAY [facility] Last Admin: 09/13/21 08:42 Dose: 10 mg Documented by: Bisacodyl (Bisacodyl 10 Mg Supp.Rect) 10 mg CO Q2-3DAYS PRN PRN Reason: Constipation Carbidopa/Levodopa (Carbidopa/Levodopa 25/100 Tablet) 1 tab PO BID [facility] Last Admin: 09/12/21 21:11 Dose: 1 tab Documented by: Chlorhexidine Gluconate (Chlorhexidine Gluconate 1 Ml Oral.Margaret) 15 ml SWABMOUTH BID [facility] Last Admin: 09/13/21 08:41 Dose: 15 ml Documented by: Citalopram Hydrobromide (Citalopram 20 Mg Tablet) 20 mg PO QDAY [facility] Last Admin: 09/12/21 08:22 Dose: 20 mg Documented by: Diazepam (Diazepam 10 Mg Tablet) 10 mg PO DAILYP PRN PRN Reason: Anxiety Divalproex Sodium (Divalproex 125 Mg Cap.Sprink) 1,000 mg PO HS [facility] Last Admin: 09/12/21 21:12 Dose: 1,000 mg Documented by: Divalproex Sodium (Divalproex 125 Mg Cap.Sprink) 500 mg PO DAILY [facility] Last Admin: 09/12/21 08:23 Dose: 500 mg Documented by: Docusate Sodium (Docusate Sodium 50 Mg/5 Ml Oral.Margaret) 100 mg PT BID [facility] Last Admin: 09/13/21 08:45 Dose: 100 mg Documented by: Potassium Chloride 40 meq/ (Dextrose) 520 mls @ 130 mls/hr IV UD PRN PRN Reason: K+ = or < 3.5 Acetaminophen (Ofirmev) 650 mg in 65 mls @ 130 mls/hr IV Q6HP PRN; Protocol PRN Reason: Per Pain Protocol/Fever > 101 Last Admin: 09/13/21 08:42 Dose: 130 mls/hr Documented by: Magnesium Sulfate (Magnesium Sulfate) 2 gm in 50 mls @ 50 mls/hr IV UD PRN PRN Reason: MG = or < 1.7 Levothyroxine Sodium (Levothyroxine 150 Mcg Tablet) 150 mcg PO QAMAC [facility] Last Admin: 09/13/21 08:42 Dose: 150 mcg Documented by: Magnesium Hydroxide (Magnesium Hydroxide 30 Ml Oral.Susp) 30 ml PO BIDP PRN PRN Reason: Constipation Melatonin (Melatonin 3 Mg Tablet) 3 mg PO HSP PRN PRN Reason: Insomnia Last Admin: 09/11/21 22:09 Dose: 3 mg Documented by: Midodrine (Midodrine 5 Mg Tablet) 10 mg PO TID@0800,1200,1700 [facility] Last Admin: 09/13/21 08:42 Dose: 10 mg Documented by: Morphine Sulfate (Morphine 4 Mg/Ml Vial) 0 mg IV Q1HP PRN; Protocol PRN Reason: Per Pain Protocol Last Admin: 09/10/21 14:25 Dose: 4 mg Documented by: Multivitamins (Multivitamins,Therapeutic 1 Ml Oral.Margaret) 5 ml PT DAILY [facility] Last Admin: 09/13/21 08:45 Dose: 5 ml Documented by: Naloxone HCl (Naloxone Hcl 0.4 Mg/Ml Vial) 0.1 mg IV Q2MIN PRN PRN Reason: Opiate Reversal Olanzapine (Olanzapine 5 Mg Tablet) 10 mg PO DAILY [facility] Last Admin: 09/12/21 08:22 Dose: 10 mg Documented by: Ondansetron HCl (Ondansetron 4 Mg/2 Ml Vial) 4 mg IV Q4HP PRN; Protocol PRN Reason: Nausea And Vomiting Ondansetron HCl (Ondansetron 4 Mg Odt Tablet) 4 mg SL Q4HP PRN; Protocol PRN Reason: Nausea And Vomiting Polyethylene Glycol (Polyethylene Glycol 3350 17 Gm Packet) 17 gm PO DAILYP PRN PRN Reason: Constipation Potassium Chloride (Potassium Chloride 10 Meq Tablet) 10 meq PO BIDCC [facility] Last Admin: 09/13/21 08:42 Dose: 10 meq Documented by: Potassium/Phosphorus/Sodium (Neutra Phos 1 Packet) 2 packet PT ONCE PRN PRN Reason: For phosphorus less than 2.5 Last Admin: 09/12/21 19:19 Dose: 2 packet Documented by: Fluticasone/Salmeterol (Fluticasone/Salmeterol 250/50 Inhaler #14) 1 puff INH BID [facility] Last Admin: 09/13/21 08:31 Dose: Not Given Documented by: Senna/Docusate Sodium (Sennosides/Docusate Sodium 1 Tab Tablet) 1 tab PO HS [facility] Last Admin: 09/12/21 21:12 Dose: 1 tab Documented by: Sodium Biphosphate/Sodium Phosphate (Fleets Adult Enema) 1 dose CO Q3-4DAYS PRN PRN Reason: Constipation Sodium Chloride (0.9 % Sodium Chloride 10 Ml Syringe) 10 ml IV Q8 [facility] Last Admin: 09/13/21 05:29 Dose: 10 ml Documented by: Throat Lozenges (Benzocaine/Menthol 1 Lozenge) 1 lozenge PO PRN PRN PRN Reason: Sore Throat Tizanidine HCl (Tizanidine 4 Mg Tablet) 4 mg PO TID [facility] Last Admin: 09/12/21 21:11 Dose: 4 mg Documented by: Warfarin Sodium (Warfarin Per Pharmacy) 1 order PO UD [facility] Zolpidem Tartrate (Zolpidem 5 Mg Tablet) 10 mg PO HSP PRN PRN Reason: Insomnia A/P Assessment and plan (1) Subtrochanteric fracture of hip: Status: Acute (2) Atrial fibrillation: Status: Acute (3) Chronic anticoagulation: Status: Acute (4) Supratherapeutic INR: Status: Acute (5) Dysphagia: Status: Acute (6) G tube feedings: Status: Acute (7) Anemia, normocytic normochromic: Status: Acute (8) Anxiety disorder: Status: Acute (9) Hypothyroidism: Status: Acute (10) Parkinson disease: Status: Acute (11) COPD (chronic obstructive pulmonary disease): Status: Acute Narrative A/P Narrative: Assessment and Plans: 1. Right hip fracture: S/p ORIF by orthopedic surgeon Dr. Curiel on 09/06 Physical therapy Occupational therapy Pending SNF placement Tylenol PRN mild pain Morphine IV PRN severe pain [place] PRN moderate pain d/c Robaxin 2. Atrial fibrillation: Supratherapeutic INR, today 3.6, goal 2-3 Coumadin dosing with pharmacy assistance Daily INR for Coumadin dosing Amiodarone PRN for rate control Hold Digoxin given bradycardia Cardiac monitoring 3. Hypothyroidism: Continue thyroid replacement therapy 4. Dysphagia: Continue PEG tube feeding Dysphagia level 4 diet as pleasure feeding 5. Aspiration pneumonitis: Currently on 1L/min oxygen therapy, not on antibiotics Continue to monitor for feeding situations 6. Parkinson's Disease: Sinemet 7. Anemia, normocytic normochromic: Daily cbc w/ auto diff in the morning to trend H/H; transfuse pRBC if hemoglobin <7.0, active bleeding, or symptomatic 8. Anxiety disorder: Citalopram d/c Seroquel for soft blood pressure Olanzapine Valium PRN anxiety 9. COPD, stable: Advair Diskus DuoNEB NEB PRN wheezing or SOB GI ppx: not currently indicated DVT ppx: SCDs Code status: Full Prognosis: stable Disposition: inpatient med surg telemetry Time Spent With Patient Time: Total time spent is greater than 50% in coordination of care (as documented) at patient's floor/unit and/or counseling patient: Total time spent with greater than 50% in coordination of care (as documented) at patient's floor/unit and/or counseling patient:: Greater than 35 minutes QUALITY VTE Deep Vein Thrombosis/Pulmonary Embolism Present on Admission: No
[2021-09-13] MEDS ORDERED: NEUTRA PHOS 1 PACKET PT PRN (09:58)
[2021-09-13] MEDS: QUEtiapine 25 MG TABLET PO SCH (10:03)
[2021-09-13] MEDS: OLANZapine 5 MG TABLET PO SCH (10:24)
[2021-09-13] MEDS: CITALOPRAM 20 MG TABLET PO SCH (10:24)
[2021-09-13] MEDS: AMIODARONE HCL 200 MG TABLET PO SCH (10:25)
[2021-09-13] MEDS: CARBIDOPA/LEVODOPA 25/100 TABLET PO SCH ×2 (10:25→21:37)
[2021-09-13] MEDS: tiZANidine 4 MG TABLET PO SCH ×3 (10:25→21:39)
[2021-09-13] MEDS: DIVALPROEX 125 MG CAP.SPRINK PO SCH ×2 (10:25→21:38)
[2021-09-13] MEDS: morphine 4 MG/ML VIAL IV PRN (13:03)
[2021-09-13] MEDS: MELATONIN 3 MG TABLET PO PRN (21:39)
[2021-09-13] MEDS: SENNOSIDES/DOCUSATE SODIUM 1 TAB TABLET PO SCH (21:40)
[2021-09-14] MEDS: 0.9 % SODIUM CHLORIDE 10 ML SYRINGE IV SCH ×3 (05:00→20:45)
[2021-09-14 06:29] LABS: Basophils # (Auto) 0.03 K/mcL (0.00-0.30); Basophils % (Auto) 0.4 % (0.0-2.0); Eosinophils # (Auto) 0.28 K/mcL (0.00-0.70); Eosinophils % (Auto) 4.1 % (0.0-7.0); Hematocrit 26.3 % (40.1-51.0); Hemoglobin 8.9 g/dL (13.7-17.5); Lymphocytes # (Auto) 1.97 K/mcL (1.50-4.80); Mean Cell Volume 89.2 fL (80.0-100.0); Mean Corpuscular HGB Conc 33.8 g/dL (31.0-36.0); Mean Platelet Volume 10.5 fL (7.4-10.4); Monocytes # (Auto) 0.82 K/mcL (0.10-0.90); Monocytes % (Auto) 12.1 % (1.0-12.0); Neutrophils % (Auto) 54.4 % (38.0-78.0); Platelet Count 242 K/mcL (140-440); RBC 2.95 M/mcL (4.63-6.08); Red Cell Distribution Width 15.5 % (11.5-14.5); WBC 6.8 K/mcL (4.5-11.0)
[2021-09-14 06:35] LABS: INR 1.8 (0.9-1.1); Prothrombin Time 21.6 sec (11.9-14.5)
[2021-09-14 06:58] LABS: Phosphorous 2.8 mg/dL (2.5-4.5)
[2021-09-14 07:10] LABS: ALT/SGPT 6 U/L (<40); AST/SGOT 20 U/L (<40); Albumin 2.6 gm/dL (3.2-5.2); Albumin/Globulin Ratio 0.9 (1.0-2.3); Alkaline Phosphatase 82 U/L (39-117); Bilirubin,Total 0.7 mg/dL (0.1-1.0); Blood Urea Nitrogen 9 mg/dL (8-23); Calcium 8.4 mg/dL (8.6-10.4); Carbon Dioxide 25 mmol/L (22-30); Chloride 99 mmol/L (96-108); Globulin 2.8 gm/dL (2.2-3.7); Glomerular Filtration Rate 98; Glucose 87 mg/dL (70-105)
[2021-09-14] MEDS: POTASSIUM CHLORIDE 10 MEQ TABLET PO SCH ×2 (07:22→17:09)
[2021-09-14] MEDS: AMIODARONE HCL 200 MG TABLET PO SCH (07:23)
[2021-09-14] MEDS: MIDODRINE 5 MG TABLET PO SCH ×3 (07:23→17:08)
[2021-09-14] MEDS: LEVOTHYROXINE 150 MCG TABLET PO SCH (07:23)
[2021-09-14] MEDS: HYDROCODONE/APAP 7.5/325MG TABLET PO PRN ×3 (07:25→20:43)
[2021-09-14] MEDS: FLUTICASONE/SALMETEROL 250/50 INHALER #14 INH SCH ×2 (08:38→20:45)
[2021-09-14] MEDS: CHLORHEXIDINE GLUCONATE 1 ML ORAL.SOL SWABMOUTH SCH ×2 (09:06→20:43)
[2021-09-14] MEDS: OLANZapine 5 MG TABLET PO SCH (09:07)
[2021-09-14] MEDS: ATORVASTATIN 10 MG TABLET PO SCH (09:08)
[2021-09-14] MEDS: DIVALPROEX 125 MG CAP.SPRINK PO SCH ×2 (09:08→22:59)
[2021-09-14] MEDS: tiZANidine 4 MG TABLET PO SCH ×3 (09:08→20:43)
[2021-09-14] MEDS: CITALOPRAM 20 MG TABLET PO SCH (09:09)
[2021-09-14] MEDS: CARBIDOPA/LEVODOPA 25/100 TABLET PO SCH ×2 (09:09→20:43)
[2021-09-14] MEDS: DOCUSATE SODIUM 50 MG/5 ML ORAL.SOL PT SCH ×2 (09:09→20:45)
[2021-09-14] MEDS: ASPIRIN 81 MG TAB.CHEW PO SCH (09:09)
[2021-09-14] MEDS: MULTIVITAMINS,THERAPEUTIC 1 ML ORAL.SOL PT SCH (09:09)
[2021-09-14] MEDS ORDERED: WARFARIN 5 MG TABLET PO ONE (14:00)
--- NOTE | 2021-09-14 16:47 | Internal Med Progress Note ---
SUBJECTIVE Subjective Patient information: Note initiated : 09/14/21 at 4:43 pm Service Date, if different from initiated Date: [] Patient: Oh Garcia a 66 y/o M admitted on 09/05/21 for Fall, Rt hip fx. Chief Complaint: [right hip fracture] Interval history: Interval history: Mr. Garcia is a 66 year old M with a complex past medical history of Parkinson's disease with ataxia, autonomic dysfunction, chronic pain, hypothyroidism, neuropathy, atrial fibrillation on anticoagulation, anxiety disorder who presents to the ER after he fell due to Parkinson related ataxia. Patient denies losing consciousness or seizure episode or thunderclap headache. He further denies chest pain, palpitation but started experiencing right-sided hip and back pain. He was evaluated at [facility]. Imaging consistent with right hip fracture. Dr. Butler admitting orthopedic was consulted and requested transfer to [facility] for operative intervention. Patient was brought in to [facility] ER by ambulance. On arrival stable hemodynamics. Creatinine 1.48, bicarb 31, sodium 134, potassium 3.6, white count 9.7, hemoglobin 14.9 Subsequently hospital service was consulted for admission. At the time of my evaluation patient is alert and oriented. He denies active distress but endorses to right-sided hip pain. He endorses to history as above. Lives with his son who was out working at the time of fall Other than that patient denies sick contacts, fever, chills, diarrhea, dysuria, productive sputum, cough. 09/06-patient seen in postoperative phase. Doing well. Pain good control. On Jevity per tube. Restart home medications. No anxiety/concerns expressed with nursing staff. Stable hemodynamics. 09/07-patient seen in room postop day 1 around 11 AM doing well. Sitting on chair. Eating breakfast. Denies major concerns but feel little fatigued. Responded to rapid response around 1:15 PM. Patient was found to bradycardic in 50s, hypotensive around mid 50s systolic and sats low 70s. Patient was found gurgling. Started on nonrebreather mask/aggressive suctioning/POC stat labs. Crystalloid challenge with resultant improvement blood pressures to 90 systolic. Patient transferred to ICU. Oh said while he was sitting he regurgitated his gastric contents and was unable to spit it out and choked on it. Tube feeds discontinued and PEG tube decompressed. Start chest imaging bibasilar infiltrates suspicious for aspiration. Continue aspiration precaution, DC tube feeds. Keep n.p.o. Close hemodynamic monitoring. Hemoglobin stable 09/08-patient continues to remain hypotensive. Start pressors. Keep n.p.o. due to recurrent aspiration. On 3 to 4 L oxygen. White count 4.2, resume tube feeds per dietitian. Remains critically ill. Postop day 3. Start Coumadin while patient continues on twice daily Lovenox. Await digoxin level. Continue Coumadin. 09/09-patient doing well on Levophed. Systolics, map at goal. Improved renal function. Improved urine output. Still feels weak and unsteady on feet. Wean Levophed. Now on 1 L oxygen. Transition to medical floor later today if able to stay off Levophed for 6 to 8 hours. Case management to coordinate transfer to SNF in the next 48 hours. No overnight fever chills, dietitian to restart tube feeds, INR 1.8. DC Lovenox once therapeutic, digoxin level 1, phosphorus 1.8 on replacement 09/10-patient doing a lot better. Off pressors. Off oxygen. Tolerating tube feeds. No overnight events bleeding fever chills nausea vomiting. Anticipate discharge to SNF in 24 hours. Case management coordinating placement INR 5.8, Coumadin dose titration phosphorus 1.6 on replacement. No additional concerns expressed nursing staff 09/11-patient doing well. Currently at baseline. Systolics remains around 80 which is usual baseline currently on midodrine, asymptomatic, able to participate physical therapy after brief rest during transition to supine to sitting position to accommodate for orthostatic hypotension. Stable labs and hemodynamics. Hemoglobin 8.6, INR 6.7, Coumadin dosing based on INR, phosphorus 1.6 on replacement, ongoing tube feeds. May transition to oral pured diet with aspiration precautions and all been sitting upright on chair at 90 degree. Will likely transition to SNF on Tuesday. 09/12: Afebrile overnight. Bradycardia HR in the 40-50s bpm. Soft blood pressure with BP as low as 80s/50s mmHg. No other major overnight events. Still on PEG tube feeding. Denies any pain or discomfort. 09/13: Afebrile overnight. Currently on 1L/min oxygen. INR 3.6 this morning. Soft blood pressure last night, resolved by this morning. 03/26 right lateral hip pain. Denies chest pain or SOB. Denies fever, chills, or sweating. 09/14: Afebrile overnight. Currently on room air. INR 1.8 this morning. Denies right lateral hip pain currently. Denies chest pain or SOB. Denies fever, chills, or sweating. Constitutional Vitals: Vital Signs Temp Pulse Resp BP Pulse Ox 36.9 C 79 20 122/81 93 09/14/21 15:30 09/14/21 15:30 09/14/21 15:30 09/14/21 15:30 09/14/21 15:30 Period Temp Pulse Resp BP Sys/Roland Pulse Ox Last 24 Hr 36.6 C-37.3 C 55-79 16-22 97-126/53-85 91-97 Intake and Output 09/14/21 09/14/21 09/14/21 05:59 13:59 21:59 Intake Total 560 520 480 Output Total 1000 850 Balance -440 -330 480 Weight 75.206 kg Patient Weight 09/15/21 05:59 Weight 75.206 kg Intake & Output: Intake & Output 09/14/21 09/14/21 09/14/21 05:59 13:59 21:59 Intake Total 560 520 480 Output Total 1000 850 Balance -440 -330 480 Weight 75.206 kg Intake: Oral 100 120 480 Tube Feeding 360 300 GI Tube Flush 100 100 Output: Void Amount 1000 850 Other: Meal Lunch Percent of Meal Consumed 100% Feeding Ability Independent Urine Appearance Clear Urine Color Bright Yellow Dark Yellow Urine Odor Strong Stool Size Large Stool Color Brown Stool Consistency Soft Formed # Voids 1 # Bowel Movements 0 1 Exam: Masked facies Head Head exam: Present atraumatic and normal inspection Eye Eye exam: Present normal appearance ENT ENT exam: Present mucous membranes moist, normal exam and normal external ear exam Additional comments: masked facies Neck Neck exam: Present normal inspection Respiratory Respiratory exam: Present normal respiratory exam Cardiovascular Cardiovascular exam: Present normal rate and rhythm GI/Abdominal GI/Abdominal exam: Present normal bowel sounds Additional comments: PEG tube in place Extremities Exam Extremities exam: Present full ROM and tenderness; Absent normal inspection Additional comments: Right lateral hip covered by surgical dressing Back Exam Back exam: Present normal inspection Neurological Exam Neurological exam: Present alert and oriented X3 Skin Skin exam: Present intact and warm OBJ DATA Labs CBC & Chem 7: 09/14/21 05:20 09/14/21 05:20 Labs: Abnormal Lab Results 09/14/21 09/14/21 09/14/21 05:20 05:20 05:20 RBC 2.95 L Hgb 8.9 L Hct 26.3 L RDW 15.5 H MPV 10.5 H Pine % (Auto) 12.1 H Lymph # (Auto) PT 21.6 H INR 1.8 H Anion Gap BUN Creatinine Calcium 8.4 L Total Protein 5.4 L Albumin 2.6 L Albumin/Globulin Ratio 0.9 L 09/13/21 09/13/21 09/13/21 04:55 04:55 04:55 RBC 2.84 L Hgb 8.7 L Hct 25.3 L RDW 15.3 H MPV 10.8 H [place] % (Auto) Lymph # (Auto) 1.41 L PT 37.4 H INR 3.6 H Anion Gap 6.0 L BUN 7 L Creatinine 0.6 L Calcium 8.1 L Total Protein 5.0 L Albumin 2.5 L Albumin/Globulin Ratio 09/12/21 09/12/21 09/12/21 05:13 05:13 04:56 RBC 2.89 L Hgb 8.7 L Hct 25.7 L RDW 15.2 H MPV 11.5 H Pine % (Auto) Lymph # (Auto) PT 58.6 H INR 6.3 H* Anion Gap 7.0 L BUN 6 L Creatinine Calcium 8.2 L Total Protein 5.0 L Albumin 2.5 L Albumin/Globulin Ratio Meds: Medications Acetaminophen (Acetaminophen 325 Mg Tablet) 650 mg PO Q6HP PRN; Protocol PRN Reason: Per Pain Protocol/Fever > 101 Hydrocodone Bitart/Acetaminophen (Hydrocodone/Apap 7.5/325mg Tablet) 0 tab PO Q4HP PRN; Protocol PRN Reason: Per Pain Protocol Last Admin: 09/14/21 12:32 Dose: 2 tab Documented by: Albuterol/Ipratropium (Ipratropium/Albuterol 3 Ml Ampul.Neb) 3 ml NEB Q4HP PRN PRN Reason: Shortness Of Breath Amiodarone HCl (Amiodarone Hcl 200 Mg Tablet) 200 mg PO [facility] Last Admin: 09/14/21 07:23 Dose: 200 mg Documented by: Aspirin (Aspirin 81 Mg Tab.Chew) 81 mg PO DAILY [facility] Last Admin: 09/14/21 09:09 Dose: 81 mg Documented by: Atorvastatin Calcium (Atorvastatin 10 Mg Tablet) 10 mg PO QDAY [facility] Last Admin: 09/14/21 09:08 Dose: 10 mg Documented by: Bisacodyl (Bisacodyl 10 Mg Supp.Rect) 10 mg ID Q2-3DAYS PRN PRN Reason: Constipation Carbidopa/Levodopa (Carbidopa/Levodopa 25/100 Tablet) 1 tab PO BID [facility] Last Admin: 09/14/21 09:09 Dose: 1 tab Documented by: Chlorhexidine Gluconate (Chlorhexidine Gluconate 1 Ml Oral.Margaret) 15 ml SWABMOUTH BID [facility] Last Admin: 09/14/21 09:06 Dose: 15 ml Documented by: Citalopram Hydrobromide (Citalopram 20 Mg Tablet) 20 mg PO QDAY [facility] Last Admin: 09/14/21 09:09 Dose: 20 mg Documented by: Diazepam (Diazepam 10 Mg Tablet) 10 mg PO DAILYP PRN PRN Reason: Anxiety Divalproex Sodium (Divalproex 125 Mg Cap.Sprink) 1,000 mg PO HS [facility] Last Admin: 09/13/21 21:38 Dose: 1,000 mg Documented by: Divalproex Sodium (Divalproex 125 Mg Cap.Sprink) 500 mg PO DAILY [facility] Last Admin: 09/14/21 09:08 Dose: 500 mg Documented by: Docusate Sodium (Docusate Sodium 50 Mg/5 Ml Oral.Margaret) 100 mg PT BID [facility] Last Admin: 09/14/21 09:09 Dose: Not Given Documented by: Potassium Chloride 40 meq/ (Dextrose) 520 mls @ 130 mls/hr IV UD PRN PRN Reason: K+ = or < 3.5 Acetaminophen (Ofirmev) 650 mg in 65 mls @ 130 mls/hr IV Q6HP PRN; Protocol PRN Reason: Per Pain Protocol/Fever > 101 Last Infusion: 09/13/21 09:15 Dose: Infused Documented by: Magnesium Sulfate (Magnesium Sulfate) 2 gm in 50 mls @ 50 mls/hr IV UD PRN PRN Reason: MG = or < 1.7 Levothyroxine Sodium (Levothyroxine 150 Mcg Tablet) 150 mcg PO QAMAC [facility] Last Admin: 09/14/21 07:23 Dose: 150 mcg Documented by: Magnesium Hydroxide (Magnesium Hydroxide 30 Ml Oral.Susp) 30 ml PO BIDP PRN PRN Reason: Constipation Melatonin (Melatonin 3 Mg Tablet) 3 mg PO HSP PRN PRN Reason: Insomnia Last Admin: 09/13/21 21:39 Dose: 3 mg Documented by: Midodrine (Midodrine 5 Mg Tablet) 10 mg PO TID@0800,1200,1700 [facility] Last Admin: 09/14/21 12:31 Dose: 10 mg Documented by: Morphine Sulfate (Morphine 4 Mg/Ml Vial) 0 mg IV Q1HP PRN; Protocol PRN Reason: Per Pain Protocol Last Admin: 09/13/21 13:03 Dose: 2 mg Documented by: Multivitamins (Multivitamins,Therapeutic 1 Ml Oral.Margaret) 5 ml PT DAILY [facility] Last Admin: 09/14/21 09:09 Dose: Not Given Documented by: Naloxone HCl (Naloxone Hcl 0.4 Mg/Ml Vial) 0.1 mg IV Q2MIN PRN PRN Reason: Opiate Reversal Olanzapine (Olanzapine 5 Mg Tablet) 10 mg PO DAILY [facility] Last Admin: 09/14/21 09:07 Dose: 10 mg Documented by: Ondansetron HCl (Ondansetron 4 Mg/2 Ml Vial) 4 mg IV Q4HP PRN; Protocol PRN Reason: Nausea And Vomiting Ondansetron HCl (Ondansetron 4 Mg Odt Tablet) 4 mg SL Q4HP PRN; Protocol PRN Reason: Nausea And Vomiting Polyethylene Glycol (Polyethylene Glycol 3350 17 Gm Packet) 17 gm PO DAILYP PRN PRN Reason: Constipation Potassium Chloride (Potassium Chloride 10 Meq Tablet) 10 meq PO BIDCC [facility] Last Admin: 09/14/21 07:22 Dose: 10 meq Documented by: Potassium/Phosphorus/Sodium (Neutra Phos 1 Packet) 2 packet PT ONCE PRN PRN Reason: For phosphorus less than 2.5 Fluticasone/Salmeterol (Fluticasone/Salmeterol 250/50 Inhaler #14) 1 puff INH BID [facility] Last Admin: 09/14/21 08:38 Dose: Not Given Documented by: Senna/Docusate Sodium (Sennosides/Docusate Sodium 1 Tab Tablet) 1 tab PO [facility] Last Admin: 09/13/21 21:40 Dose: 1 tab Documented by: Sodium Biphosphate/Sodium Phosphate (Fleets Adult Enema) 1 dose ID Q3-4DAYS PRN PRN Reason: Constipation Sodium Chloride (0.9 % Sodium Chloride 10 Ml Syringe) 10 ml IV Q8 [facility] Last Admin: 09/14/21 14:04 Dose: 10 ml Documented by: Throat Lozenges (Benzocaine/Menthol 1 Lozenge) 1 lozenge PO PRN PRN PRN Reason: Sore Throat Tizanidine HCl (Tizanidine 4 Mg Tablet) 4 mg PO TID [facility] Last Admin: 09/14/21 14:03 Dose: 4 mg Documented by: Warfarin Sodium (Warfarin Per Pharmacy) 1 order PO [facility] Zolpidem Tartrate (Zolpidem 5 Mg Tablet) 10 mg PO HSP PRN PRN Reason: Insomnia A/P Assessment and plan (1) Subtrochanteric fracture of hip: Status: Acute (2) Atrial fibrillation: Status: Acute (3) Chronic anticoagulation: Status: Acute (4) Supratherapeutic INR: Status: Acute (5) Dysphagia: Status: Acute (6) G tube feedings: Status: Acute (7) Anemia, normocytic normochromic: Status: Acute (8) Anxiety disorder: Status: Acute (9) Hypothyroidism: Status: Acute (10) Parkinson disease: Status: Acute (11) COPD (chronic obstructive pulmonary disease): Status: Acute Narrative A/P Narrative: Assessment and Plans: 1. Right hip fracture: S/p ORIF by orthopedic surgeon Dr. Curiel on 09/06 Physical therapy Occupational therapy Pending SNF placement Tylenol PRN mild pain Morphine IV PRN severe pain [place] PRN moderate pain d/c Robaxin 2. Atrial fibrillation: Supratherapeutic INR, today 1.8, goal 2-3 Coumadin dosing with pharmacy assistance Daily INR for Coumadin dosing Amiodarone PRN for rate control Hold Digoxin given bradycardia Cardiac monitoring 3. Hypothyroidism: Continue thyroid replacement therapy 4. Dysphagia: Continue PEG tube feeding Dysphagia level 4 diet as pleasure feeding 5. Aspiration pneumonitis: Currently on room air, not on antibiotics Continue to monitor for feeding situations 6. Parkinson's Disease: Sinemet 7. Anemia, normocytic normochromic: Daily cbc w/ auto diff in the morning to trend H/H; transfuse pRBC if hemoglobin <7.0, active bleeding, or symptomatic 8. Anxiety disorder: Citalopram d/c Seroquel for soft blood pressure Olanzapine Valium PRN anxiety 9. COPD, stable: Advair Diskus DuoNEB NEB PRN wheezing or SOB GI ppx: not currently indicated DVT ppx: SCDs Code status: Full Prognosis: stable Disposition: inpatient med surg telemetry; pending SNF discharge Time Spent With Patient Time: Total time spent is greater than 50% in coordination of care (as documented) at patient's floor/unit and/or counseling patient: Total time spent with greater than 50% in coordination of care (as documented) at patient's floor/unit and/or counseling patient:: Greater than 35 minutes QUALITY VTE Deep Vein Thrombosis/Pulmonary Embolism Present on Admission: No
[2021-09-14] MEDS: SENNOSIDES/DOCUSATE SODIUM 1 TAB TABLET PO SCH (20:43)
[2021-09-15] MEDS: HYDROCODONE/APAP 7.5/325MG TABLET PO PRN ×2 (04:44→11:00)
[2021-09-15] MEDS: 0.9 % SODIUM CHLORIDE 10 ML SYRINGE IV SCH (05:37)
[2021-09-15 06:59] LABS: Basophils # (Auto) 0.04 K/mcL (0.00-0.30); Basophils % (Auto) 0.6 % (0.0-2.0); Eosinophils # (Auto) 0.26 K/mcL (0.00-0.70); Eosinophils % (Auto) 3.8 % (0.0-7.0); Hematocrit 30.8 % (40.1-51.0); Hemoglobin 10.3 g/dL (13.7-17.5); INR 1.7 (0.9-1.1); Lymphocytes # (Auto) 1.48 K/mcL (1.50-4.80); Lymphocytes % (Auto) 21.7 % (15.5-49.0); Mean Cell Volume 91.4 fL (80.0-100.0); Mean Corpuscular HGB Conc 33.4 g/dL (31.0-36.0); Mean Platelet Volume 10.1 fL (7.4-10.4); Monocytes # (Auto) 1.07 K/mcL (0.10-0.90); Monocytes % (Auto) 15.7 % (1.0-12.0); Neutrophils % (Auto) 58.2 % (38.0-78.0); Platelet Count 311 K/mcL (140-440); Prothrombin Time 20.9 sec (11.9-14.5); RBC 3.37 M/mcL (4.63-6.08); Red Cell Distribution Width 15.9 % (11.5-14.5); WBC 6.8 K/mcL (4.5-11.0)
[2021-09-15 07:02] LABS: ALT/SGPT 6 U/L (<40); AST/SGOT 21 U/L (<40); Albumin 3.1 gm/dL (3.2-5.2); Albumin/Globulin Ratio 0.9 (1.0-2.3); Alkaline Phosphatase 98 U/L (39-117); Bilirubin,Total 0.7 mg/dL (0.1-1.0); Blood Urea Nitrogen 9 mg/dL (8-23); Calcium 8.9 mg/dL (8.6-10.4); Carbon Dioxide 28 mmol/L (22-30); Chloride 97 mmol/L (96-108); Globulin 3.4 gm/dL (2.2-3.7); Glomerular Filtration Rate 98; Glucose 84 mg/dL (70-105); Phosphorous 3.9 mg/dL (2.5-4.5)
[2021-09-15] MEDS: POTASSIUM CHLORIDE 10 MEQ TABLET PO SCH (07:59)
[2021-09-15] MEDS: MIDODRINE 5 MG TABLET PO SCH (07:59)
[2021-09-15] MEDS: LEVOTHYROXINE 150 MCG TABLET PO SCH (07:59)
[2021-09-15] MEDS: AMIODARONE HCL 200 MG TABLET PO SCH (07:59)
--- NOTE | 2021-09-15 08:40 | Discharge Summary ---
Discharge Provider Provider Patient information: Note initiated : 09/15/21 at 8:39 am Service Date, if different from initiated Date: [] Patient: Oh Garcia 66 y/o M admitted on 09/05/21 for Fall, Rt hip fx. Chief Complaint: [] Date of admission: 09/05/21 15:59 Discharge date: 09/15/21 Primary care physician: Ronaldo Trejo MD Attending physician on admission: Gallo Sandra Consults: 09/05/21 Consult to Physician [CONS] Stat Comment: Consulting Provider: Shailesh Shields Reason For Exam: Physician to Consult 09/05/21 13:55 Consult to Physician [CONS] Routine Comment: Consulting Provider: Yovani Curiel Reason For Exam: Physician to Consult Attending physician on discharge: Gallo Carranza Pui Discharge Meds Discharge Medications Home Medications amiodarone 200 mg tablet 200 mg PO QDAY 09/05/21 [History Confirmed 09/05/21 Last Taken 09/04/21] aspirin 81 mg capsule 81 mg PO QDAY 09/05/21 [History Confirmed 09/05/21 Last Taken 09/04/21] carbidopa 25 mg-levodopa 100 mg tablet 1 tab PO BID 09/05/21 [History Confirmed 09/05/21 Last Taken 09/04/21] citalopram 20 mg tablet 20 mg PO QDAY 09/05/21 [History Confirmed 09/05/21 Last Taken 09/04/21] cyanocobalamin (vitamin B-12) 1,000 mcg/mL injection syringe 1,000 mcg DAILY 09/05/21 [History Confirmed 09/05/21 Last Taken 09/04/21] diazepam 10 mg tablet 10 mg PO DAILY PRN 09/05/21 [History Confirmed 09/05/21 Last Taken 09/04/21] digoxin 125 mcg (0.125 mg) tablet 125 mcg PO DAILY 09/05/21 [History Confirmed 09/05/21 Last Taken 09/04/21] divalproex 500 mg tablet,delayed release (Depakote) 500 mg PO BID 09/05/21 [History Confirmed 09/05/21 Last Taken 09/04/21] fluconazole 150 mg tablet 150 mg PO ONCE 09/05/21 [History Confirmed 09/05/21 Last Taken 09/04/21] fluticasone 250 mcg-salmeterol 50 mcg/dose blistr powdr for inhalation (Advair Diskus) 1 inh INHALATION BID 09/05/21 [History Confirmed 09/05/21 Last Taken 09/04/21] furosemide 40 mg tablet 40 mg PO QDAY 09/05/21 [History Confirmed 09/05/21 Last Taken 09/04/21] gabapentin 300 mg capsule 300 mg PO QHS 09/05/21 [History Confirmed 09/05/21 Last Taken 09/04/21] levothyroxine 150 mcg capsule 150 mcg PO QDAY 09/05/21 [History Confirmed Last Taken 09/04/21] midodrine 5 mg tablet 10 mg PO TID 09/05/21 [History Confirmed 09/05/21 Last Taken 09/04/21] nitroglycerin 0.4 mg sublingual tablet 0.4 mg SUBLINGUAL Q5M PRN 09/05/21 [History Confirmed 09/05/21 Last Taken 09/04/21] olanzapine 10 mg tablet (Zyprexa) 10 mg PO QDAY 09/05/21 [History Confirmed 09/05/21 Last Taken 09/04/21] potassium chloride 10 mEq capsule,extended release 10 meq PO BID 09/05/21 [History Confirmed 09/05/21 Last Taken 09/04/21] pravastatin 40 mg tablet 40 mg PO QDAY 09/05/21 [History Confirmed 09/05/21 Last Taken 09/04/21] quetiapine 50 mg tablet 50 mg PO BID 09/05/21 [History Confirmed 09/05/21 Last Taken 09/04/21] tizanidine 4 mg capsule 4 mg PO TID 09/05/21 [History Confirmed 09/05/21 Last Taken 09/04/21] warfarin 5 mg tablet See Rx Instructions .ROUTE .COMPLEX 09/05/21 [History Confirmed 09/05/21 Last Taken Unknown] zolpidem 10 mg tablet (Ambien) 10 mg PO PRN PRN 09/05/21 [History Confirmed 09/05/21 Last Taken 09/04/21] oxycodone-acetaminophen 5 mg-325 mg tablet 1 tab PO Q4H PRN #60 tab 09/06/21 [Rx Last Taken Unknown] morphine 60 mg tablet,extended release 60 mg PO Q12H #10 tab 09/15/21 [Rx Last Taken Unknown] COURSE Hospital Course Hospital course: Mr. Garcia is a 66 year old M with a complex past medical history of Parkinson's disease with ataxia, autonomic dysfunction, chronic pain, hypothyroidism, neuropathy, atrial fibrillation on anticoagulation, anxiety disorder who presents to the ER after he fell due to Parkinson related ataxia. Patient denies losing consciousness or seizure episode or thunderclap headache. He further denies chest pain, palpitation but started experiencing right-sided hip and back pain. He was evaluated at [facility]. Imaging consistent with right hip fracture. Dr. Butler admitting orthopedic was consulted and requested transfer to [facility] for operative intervention. Patient was brought in to [facility] ER by ambulance. On arrival stable hemodynamics. Creatinine 1.48, bicarb 31, sodium 134, potassium 3.6, white count 9.7, hemoglobin 14.9 Subsequently hospital service was consulted for admission. At the time of my evaluation patient is alert and oriented. He denies active distress but endorses to right-sided hip pain. He endorses to history as above. Lives with his son who was out working at the time of fall Other than that patient denies sick contacts, fever, chills, diarrhea, dysuria, productive sputum, cough. 09/06-patient seen in postoperative phase. Doing well. Pain good control. On Jevity per tube. Restart home medications. No anxiety/concerns expressed with nursing staff. Stable hemodynamics. 09/07-patient seen in room postop day 1 around 11 AM doing well. Sitting on chair. Eating breakfast. Denies major concerns but feel little fatigued. Responded to rapid response around 1:15 PM. Patient was found to bradycardic in 50s, hypotensive around mid 50s systolic and sats low 70s. Patient was found gurgling. Started on nonrebreather mask/aggressive suctioning/POC stat labs. Crystalloid challenge with resultant improvement blood pressures to 90 systolic . Patient transferred to ICU. Oh said while he was sitting he regurgitated his gastric contents and was unable to spit it out and choked on it. Tube feeds discontinued and PEG tube decompressed. Start chest imaging bibasilar infiltrates suspicious for aspiration. Continue aspiration precaution, DC tube feeds. Keep n.p.o. Close hemodynamic monitoring. Hemoglobin stable 09/08-patient continues to remain hypotensive. Start pressors. Keep n.p.o. due to recurrent aspiration. On 3 to 4 L oxygen. White count 4.2, resume tube feeds per dietitian. Remains critically ill. Postop day 3. Start Coumadin while patient continues on twice daily Lovenox. Await digoxin level. Continue Coumadin. 09/09-patient doing well on Levophed. Systolics, map at goal. Improved renal function. Improved urine output. Still feels weak and unsteady on feet. Wean Levophed. Now on 1 L oxygen. Transition to medical floor later today if able to stay off Levophed for 6 to 8 hours. Case management to coordinate transfer to SNF in the next 48 hours. No overnight fever chills, dietitian to restart tube feeds, INR 1.8. DC Lovenox once therapeutic, digoxin level 1, phosphorus 1.8 on replacement 09/10-patient doing a lot better. Off pressors. Off oxygen. Tolerating tube feeds. No overnight events bleeding fever chills nausea vomiting. Anticipate discharge to SNF in 24 hours. Case management coordinating placement INR 5.8, Coumadin dose titration phosphorus 1.6 on replacement. No additional concerns expressed nursing staff 09/11-patient doing well. Currently at baseline. Systolics remains around 80 which is usual baseline currently on midodrine, asymptomatic, able to participate physical therapy after brief rest during transition to supine to sitting position to accommodate for orthostatic hypotension. Stable labs and hemodynamics. Hemoglobin 8.6, INR 6.7, Coumadin dosing based on INR, phosphorus 1.6 on replacement, ongoing tube feeds. May transition to oral pured diet with aspiration precautions and all been sitting upright on chair at 90 degree. Will likely transition to SNF on Tuesday. 09/12: Afebrile overnight. Bradycardia HR in the 40-50s bpm. Soft blood pressure with BP as low as 80s/50s mmHg. No other major overnight events. Still on PEG tube feeding. Denies any pain or discomfort. 09/13: Afebrile overnight. Currently on 1L/min oxygen. INR 3.6 this morning. Soft blood pressure last night, resolved by this morning. 03/26 right lateral hip pain. Denies chest pain or SOB. Denies fever, chills, or sweating. 09/14: Afebrile overnight. Currently on room air. INR 1.8 this morning. Denies right lateral hip pain currently. Denies chest pain or SOB. Denies fever, chills, or sweating. 09/15: Discharged to SNF. Discharge diagnosis: right hip fracture Time Spent with Patient Time attestation: Total time spent providing and/or coordinating discharge services: Time spent: Less than 30 minutes EXAM Constitutional Vitals: Temp Pulse Resp BP Pulse Ox 36.9 C 81 20 120/76 99 09/15/21 06:56 09/15/21 06:56 09/15/21 06:56 09/15/21 06:56 09/15/21 06:56 General appearance: cooperative and no acute distress Head Head exam: Present atraumatic and normocephalic Eye Eye exam: Present EOMI and PERRL ENT ENT exam: Present mucous membranes moist, normal exam and normal external ear exam Neck Neck exam: Present normal inspection; Absent lymphadenopathy, tenderness or thyromegaly Respiratory Respiratory exam: Absent accessory muscle use, respiratory distress or wheezes Cardiovascular Cardiovascular exam: Present irregular rhythm; Absent JVD GI/Abdominal GI/Abdominal exam: Present normal bowel sounds and soft; Absent organomegaly or tenderness Additional comments: PEG tube in place Rectal Rectal exam: Present deferred Extremities Exam Extremities exam: Present full ROM and normal capillary refill; Absent normal inspection or tenderness Additional comments: Right lateral hip covered by surgical dressing Neurological Exam Neurological exam: Present alert, CN II-XII intact and oriented X3; Absent motor sensory deficit Psychiatric Psychiatric exam: Present normal affect and normal mood; Absent anxious or depressed Skin Skin exam: Present dry and intact Discharge Data Data Completed and Pending Labs on day of discharge: Labs from last 24 hours 09/15/21 09/15/21 09/15/21 05:50 05:50 05:49 WBC 6.8 RBC 3.37 L Hgb 10.3 L Hct 30.8 L MCV 91.4 MCH 30.6 MCHC 33.4 RDW 15.9 H Plt Count 311 MPV 10.1 Neut % (Auto) 58.2 Lymph % (Auto) 21.7 Dundy % (Auto) 15.7 H Eos % (Auto) 3.8 Baso % (Auto) 0.6 Lymph # (Auto) 1.48 L Dundy # (Auto) 1.07 H Eos # (Auto) 0.26 Baso # (Auto) 0.04 Absolute Neutrophils 3.97 PT 20.9 H INR 1.7 H Sodium 134 Potassium 4.4 Chloride 97 Carbon Dioxide 28 Anion Gap 9.0 BUN 9 Creatinine 0.7 GFR Calculation 98 Glucose 84 Calcium 8.9 Phosphorus 3.9 Magnesium 1.9 Total Bilirubin 0.7 AST 21 ALT 6 Alkaline Phosphatase 98 Total Protein 6.5 Albumin 3.1 L Globulin 3.4 Albumin/Globulin Ratio 0.9 L Discharge Plan Patient/Caregiver Discharge Instructions Activity: increase activity as tolerated Diet: Regular Diet Activity Restrictions/Additional Instructions: Weight bearing as tolerated Prescriptions: New oxycodone-acetaminophen 5-325 mg tablet 1 tab PO Q4H PRN (Reason: pain) Qty: 60 0RF Continued warfarin 5 mg Tablet See Rx Instructions .ROUTE .COMPLEX 0RF Rx Instructions: 7.5 mg M, W, F, and 5 mg AOD cyanocobalamin (vitamin B-12) 1,000 mcg/mL Syringe 1,000 mcg DAILY 0RF Rx Instructions: IM levothyroxine 150 mcg Capsule 150 mcg PO QDAY 0RF pravastatin 40 mg Tablet 40 mg PO QDAY 0RF amiodarone 200 mg Tablet 200 mg PO QDAY 0RF olanzapine [Zyprexa] 10 mg Tablet 10 mg PO QDAY 0RF furosemide 40 mg Tablet 40 mg PO QDAY 0RF fluticasone propion-salmeterol [Advair Diskus] 250-50 mcg/dose Blister With Device 1 inh INHALATION BID 0RF potassium chloride 10 mEq Capsule, Extended Release 10 meq PO BID 0RF fluconazole 150 mg Tablet 150 mg PO ONCE 0RF Rx Instructions: as a single dose midodrine 5 mg Tablet 10 mg PO TID 0RF Rx Instructions: do not give last dose of day after 6PM or within 4 hrs of bedtime divalproex [Depakote] 500 mg Tablet,Delayed Release (Dr/Ec) 500 mg PO BID 0RF Rx Instructions: one tablet in the morning and two tablets at bedtime citalopram 20 mg Tablet 20 mg PO QDAY 0RF nitroglycerin 0.4 mg Tablet, Sublingual 0.4 mg SUBLINGUAL Q5M PRN (Reason: Insomnia) 0RF Rx Instructions: do not exceed 3 doses per episode digoxin 125 mcg (0.125 mg) Tablet 125 mcg PO DAILY 0RF diazepam 10 mg Tablet 10 mg PO DAILY PRN (Reason: Anxiety) 0RF zolpidem [Ambien] 10 mg Tablet 10 mg PO PRN PRN (Reason: Insomnia) 0RF carbidopa-levodopa 25-100 mg Tablet 1 tab PO BID 0RF tizanidine 4 mg Capsule 4 mg PO TID 0RF quetiapine 50 mg Tablet 50 mg PO BID 0RF aspirin 81 mg Capsule 81 mg PO QDAY 0RF morphine 60 mg Tablet Extended Release 60 mg PO Q12H Qty: 10 0RF No Action gabapentin 300 mg Capsule 300 mg PO QHS 0RF Follow Up Plan Follow up with: Yovani Curiel MD [Physician] - John Weathers MD [Referring] - Patient Disposition: Xfer SNF Rehab Potential: Good I certify that the patient requires SNF services: Yes Overall status at discharge: patient is progressing back to baseline Discharge Orders: Discharge Order (Routine); Ordered 09/15/21 Ordered By: Gallo BENNETT VTE Deep Vein Thrombosis/Pulmonary Embolism Present on Admission: No
[2021-09-15] MEDS: CHLORHEXIDINE GLUCONATE 1 ML ORAL.SOL SWABMOUTH SCH (09:16)
[2021-09-15] MEDS: tiZANidine 4 MG TABLET PO SCH (09:17)
[2021-09-15] MEDS: ATORVASTATIN 10 MG TABLET PO SCH (09:18)
[2021-09-15] MEDS: CARBIDOPA/LEVODOPA 25/100 TABLET PO SCH (09:18)
[2021-09-15] MEDS: OLANZapine 5 MG TABLET PO SCH (09:18)
[2021-09-15] MEDS: ASPIRIN 81 MG TAB.CHEW PO SCH (09:18)
[2021-09-15] MEDS: CITALOPRAM 20 MG TABLET PO SCH (09:19)
[2021-09-15] MEDS: DOCUSATE SODIUM 50 MG/5 ML ORAL.SOL PT SCH (09:19)
[2021-09-15] MEDS: MULTIVITAMINS,THERAPEUTIC 1 ML ORAL.SOL PT SCH (09:19)
[2021-09-15] MEDS: FLUTICASONE/SALMETEROL 250/50 INHALER #14 INH SCH (09:20)
[2021-09-15] MEDS: DIVALPROEX 125 MG CAP.SPRINK PO SCH (09:20)
[2021-09-15] MEDS ORDERED: WARFARIN 3 MG TABLET PO ONE (14:00)
== END 2021-09-15 12:40 | DRG 480 ==
LOC: ED 12:02 → MEDSUR 15:59 → ICU 09-07 14:00
PROVIDERS: ADMIT Internal Medicine; ATTEND Internal Medicine